=== PATIENT | male | born 1930 | race Caucasian/White ===

== ENCOUNTER 2017-10-21 15:18 | Inpatient (IN) | payer OTHER, MEDICARE ==
[~2017-10-21] VITALS: Ht 172.7 cm; Wt 120.2 kg
[~2017-10-21 15:18] MED LIST: ALBUTEROL 3 ML3 ML INH; ALBUTEROL0.09 MG/A1 INH; ASPIRIN EC81 M1 PO; CALCIUM 600600 M1 PO; CENTRUM SILVER1 TA1 PO; DULERA1 ARO INH; FIBER CHOICE1 CTB PO; K-DUR 20MEQ TA20 MEQ PO; LASIX40 MG PO; LOPRESSOR 25MG25 MG PO; LOPRESSOR50 MG PO; LOSARTAN POTAS100 MG PO; OMEPRAZOLE40 MG PO; SPIRIVA 18 MCG18 MCG INH; VIBRAMYCIN 100100 MG PO; VITAMIN D5000 I1 PO
--- NOTE | 2017-10-21 15:50 | ED DYSPNEA/ASTHMA COMPLAINT ---
History of Present Illness General Chief Complaint: Dyspnea (COPD, CHF, Other) Stated Complaint: SOB Source: patient, old records Exam Limitations: poor historian Triage Note: PT BIBA C/O SOB X4 DAYS EX SOB. 1 MONTH AGO PT WAS ON ANTIBIOTICS FOR BRONCHITIS. PER MEDIC RHONCHI THROUGHOUT AND WHEEZING. LLE POSSIBLE CELLULITIS. 125 SOLUMEDRAL IN THE FIELD, 2 GRAMS OF MAG HANGING ON ARRIVAL. 12 LEAD SHOWS AFIBB. PT HAS HX OF COPD, AFIBB CHF. Triage Nurses Notes Reviewed? yes HPI: 86 year old male with PMH significant for HTN, obesity, osteoporosis, severe aortic stenosis s/p AVR (2012), COPD, ELIZ noncompliant with CPAP, HFpEF and atrial fibrillation was BIBA for worsening dyspnea and cough. He was recently treated for bronchitis as an outpatient by Dr. Sarmiento. Dr. Prasad Garcia is his tool design engineer and manages his CHF. He was being seen in the wound care center at [place] for LLE wound and previous cellulitis, which is currently wrapped with an THANIA bandage. He was reportedly in his usual state of health until four days ago when he developed rapidly progressive exertional dyspnea to the point where he could not ambulate fifteen feet when he previously had been able to walk to the car with his walker. He also is complaining of a new productive cough but denies any fevers or chills. He denies any sick contacts. He denies any chest pain, palpitations, or worsening orthopnea. He has a history of COPD and is oxygen dependent at baseline 3L NC continuous. He was hypoxic with increased work of breathing and his called 911 at his request. The spectral scientist noted wheezing and dyspnea with atrial fibrillation with hypoxia and administered albuterol, magnesium and solumedrol in the field. (Kendy COLES,Lawrence) Vital Signs & Intake/Output Vital Signs & Intake/Output Vital Signs Date Time Temp Pulse Resp B/P B/P Pulse O2 O2 Flow FiO2 Mean Ox Delivery Rate 10/21 1728 98.0 118 24 144/83 99 8L 10/21 1526 97.9 96 22 163/77 99 Nasal 4.0L Cannula Allergies Coded Allergies: lisinopril (COUGHING 10/21/17) Reconcile Medications Albuterol Sulfate (Proair Hfa) 90 MCG HFA.AER.AD 2 PUF INH 4XDAILY COPD ( Reported) Aspirin (Ecotrin*) 81 MG TABLET.DR 1 TAB PO EOD HEART/BLOOD (Reported) Calcitriol 0.25 MCG CAPSULE 1 CAP PO DAILY SUPPLEMENT (Reported) Calcium (Elemental-Fr Calcarb) (Calcium) 600 MG CALCIUM (1,500 MG) TABLET 2 TAB PO QPM SUPPLEMENT (Reported) Cholecalciferol (Vitamin D3) (Vitamin D3) 50,000 UNIT CAPSULE 1 CAP PO QWED SUPPLEMENT (Reported) Clotrimazole/Betamethasone Dip (Clotrimazole-Betamethasone Crm) 1 %-0.05 % CREAM..G. 1 FRANCA TOP AD SKIN FOLDS (Reported) apply to affected area(s) Denosumab (Prolia) 60 MG/ML SYRINGE 60 MG INJ Q6M OSTEOPOROSIS (Reported) Furosemide 40 MG TABLET 2 TAB PO QAM DIURETIC (Reported) Losartan Potassium 50 MG TABLET 1 TAB PO DAILY BP (Reported) Metoprolol Tartrate 25 MG TABLET 0.5 TAB PO BID HEART/BP (Reported) Mometasone/Formoterol (Dulera 200 Mcg/5 Mcg Inhaler) 200 MCG-5 MCG/ACTUATION HFA.AER.AD 2 PUF INH BID COPD (Reported) Multivit-Min/FA/Lycopen/Lutein (Centrum Silver Men Tablet) 300 MCG-600 MCG-300 MCG TABLET 1 TAB PO DAILY SUPPLEMENT (Reported) Omeprazole 40 MG CAPSULE.DR 1 CAP PO DAILY GI (Reported) Polycarbophil (Fiber) (Unknown Strength) TABLET (Unknown Dose) PO QPM GI ( Reported) Potassium Chloride 20 MEQ TAB.ER.PRT 1 TAB PO DAILY SUPPLEMENT (Reported) Tiotropium Dickinson (Spiriva) 18 MCG CAP.W.DEV 1 CAP INH DAILY COPD (Reported) (Emily COLES,Jamil Martinez) Past History Travel History Traveled to [place] past 21 day No Medical History Any Pertinent Medical History? see below for history Cardiovascular: AFIB, aortic stenosis, CHF, hypertension, htn Respiratory: COPD Surgical History Surgical History: LIPOMA REMOVAL Psychosocial History Who do you live with Spouse Services at Home None What is your primary language [place] Family History Hx Contributory? No (Kendy COLES,Lawrence) Review of Systems Review of Systems Constitutional: Denies: chills, diaphoresis, fever. Respiratory: Reports: cough, orthopnea, short of breath, sputum production, wheezing. Cardiovascular: Reports: edema, orthopena, peripheral edema. Denies: chest pain, palpitations. GI: Denies: abdominal pain, constipation, diarrhea, nausea, vomiting. Genitourinary: Reports: no symptoms. Musculoskeletal: Reports: no symptoms. Skin: Reports: see HPI. Neurological/Psychological: Reports: no symptoms. Hematologic/Endocrine: Reports: no symptoms. Immunologic/Allergic: Reports: no symptoms. All Other Systems: Reviewed and Negative (Lawrence Larry MD) Physical Exam Physical Exam General Appearance: well developed/nourished, no apparent distress, alert, awake , moderate distress, tachypnea and pursed lip breathing with accessory muscle use Head: atraumatic, normal appearance Eyes: Bilateral: normal appearance, PERRL, EOMI. Neck: normal inspection, supple Respiratory: chest non-tender, lungs clear, decreased breath sounds, accessory muscle use, no crackles or rhonchi on auscultation Cardiovascular: irregularly irregular Gastrointestinal: normal bowel sounds, soft, non-tender, obese Extremities: 2+ bilateral lower extremity pitting edema, LLE THANIA wrap, b/l healing ulcers Core Measures ACS in differential dx? No CVA/TIA Diagnosis No Sepsis Present: No Sepsis Focused Exam Completed? No (Lawrence Larry MD) Progress Differential Diagnosis: asthma, AMI, CHF, COPD, pulmonary embolism, pneumonia Diagnostic Imaging: Discussed w/RAD: Radiology Read. CXR Impression: no acute abnormality Initial ED EKG: AFIB Comments: SERVICE DATE: 10/21/17-1553 EXAM TYPE: RAD - XRY-PORTABLE CHEST XRAY EXAMINATION: XR PORTABLE CHEST CLINICAL INFORMATION: Shortness of breath. COMPARISON: 02/17/2017 TECHNIQUE: Portable frontal view of the chest was obtained. FINDINGS: Large body habitus. Again noted is a large cardiac silhouette and congested appearance of central pulmonary vessels without interstitial edema, focal consolidation or pleural effusion. The replaced aortic valve is poorly visualized. Sternotomy wires are intact. Atherosclerotic calcification of the aorta. No acute osseous findings. IMPRESSION: - Cardiomegaly and chronic pulmonary venous hypertension without edema. - No acute cardiopulmonary abnormality compared to 02/17/2017. (Lawrence Larry MD) Plan of Care: Orders Procedure Date/time Status ARTERIAL BLOOD GAS (GEN) 10/21 1818 Active Add-on Test (ER Only) 10/21 1818 Active TROPONIN LEVEL 10/21 1645 Active B-TYPE NATRIURETIC PEP (BNP) 10/21 1645 Active COMPREHENSIVE METABOLIC PANEL 10/21 1626 Active CBC WITHOUT DIFFERENTIAL 10/21 1626 Complete TRC EVALUATION (GEN) 10/21 1552 Active OXYGEN SETUP (GEN) 10/21 1552 Active EKG 10/21 1534 Active Current Medications Sig/Migue Start time Last Medication Dose Stop Time Status Admin Albuterol Sulfate 3 ML Q4H PRN 10/21 1600 AC (Proventil) Ipratropium Dickinson 2.5 ML Q6P PRN 10/21 1600 AC (Atrovent) Laboratory Tests 10/21/17 1645: Troponin I Cancelled 10/21/17 1645: Anion Gap 11, Estimated GFR > 60, BUN/Creatinine Ratio 41.1 H, Glucose 112 H, Calcium 9.1, Total Bilirubin 0.6, AST 25, ALT 38, Alkaline Phosphatase 66, Troponin I 0.04, Tad-J-Mvpboqdfgup Pept Pending, Total Protein 6.4, Albumin 3.4 L, Globulin 3.0, Albumin/Globulin Ratio 1.1, CBC w Diff NO MAN DIFF REQ, RBC 3.53 L, MCV 92.1, MCH 28.8, RDW 17.9 H, MPV 7.3 L, Gran % 88.5 H, Lymphocytes % 6.9 L, Monocytes % 4.1, Eosinophils % 0.5, Basophils % 0, Absolute Granulocytes 6.7 H, Absolute Lymphocytes 0.5 L, Absolute Monocytes 0.3, Absolute Eosinophils 0, Absolute Basophils 0, PUBS MCHC 31.3 L Comments: 10/21/2017 4:51:41 PM patient appears comfortable and is conversant. I have cleaned his Ventimask 40% from 45%. (Emily COLES,Jamil Martinez) Departure Departure Time of Disposition: 1733 Disposition: STILL A PATIENT Condition: Stable Clinical Impression Primary Impression: COPD exacerbation Referrals: Yoav COLES,Yaw Bojorquez (PCP/Family) Departure Forms: Customer Survey General Discharge Information Admission Note Spoke With: Melodie Alexander MD Documentation of Exam: Documentation of any treatments & extenuating circumstances including Concerns Regarding Discharge (functional status, medication knowledge or non-compliance, living conditions, etc.) that warrant an admission rather than observation: increased oxygen requirement, pulmonary consultation, intravenous steroids, continuous pulse oximetry monitoring, possible NIPPV for acute hypoxemic respiratory failure, ABG to evaluate for hypercarbia (Lawrence Larry MD) PA/RAG INSPECTOR Co-Sign Statement Statement: ED Attending supervision documentation- [x] I saw and evaluated the patient. I have also reviewed all the pertinent lab results and diagnostic results. I agree with the findings and the plan of care as documented in the PA's/RAG INSPECTOR's documentation. Patient presents for evaluation of worsening shortness of breath and peripheral edema. Physical examination reveals diminished breath sounds over the left chest and crackles in the bases posteriorly. Patient also has left greater than right lower extremity edema (he states that he has a chronic wound on his left leg and that his left leg is typically more swollen than the right). [] I have reviewed the ED Record and agree with the PA's/RAG INSPECTOR's documentation. [] Additions or exceptions (if any) to the PAs/RAG INSPECTOR's note and plan are summarized below: [] (Emily COLES,Jamil Martinez) Critical Care Note Critical Care Note Critical Care Time: non-applicable (Kendy COLES,Lawrence)
[2017-10-21] MEDS ORDERED: SPIRIVA18 MCG INH (16:29)
[2017-10-21] MEDS ORDERED: LOSARTAN POTASS50 M1 PO (16:29)
[2017-10-21] MEDS ORDERED: FUROSEMIDE40 M1 PO (16:29)
[2017-10-21] MEDS ORDERED: CALCITRIOL0.25 MC1 PO (16:30)
[2017-10-21] MEDS ORDERED: CLOTRIMAZOLE-BE15 GM TOP (16:30)
[2017-10-21] MEDS ORDERED: METOPROLOL TART25 M1 PO (16:32)
[2017-10-21] MEDS ORDERED: OMEPRAZOLE40 M1 PO (16:33)
[2017-10-21] MEDS ORDERED: POTASSIUM CHLO20 ME2 PO (16:33)
[2017-10-21] MEDS ORDERED: PROLIA60 MG/1 ML INJ (16:33)
[2017-10-21] MEDS ORDERED: PROAIR HFA8.5 GM INH (16:34)
[2017-10-21] MEDS ORDERED: VITAMIN D350000 UNIT PO (16:35)
[2017-10-21] MEDS ORDERED: CENTRUM SILVER1 EAC4 PO (16:35)
[2017-10-21] MEDS ORDERED: DULERA 200 MCG/13 GM INH (16:35)
[2017-10-21] MEDS ORDERED: FIBER625 MG PO (16:36)
[2017-10-21] MEDS ORDERED: CALCIUM600 M3 PO (16:36)
--- NOTE | 2017-10-21 16:44 | RADIOLOGY REPORT ---
EXAMINATION: XR PORTABLE CHEST CLINICAL INFORMATION: Shortness of breath. COMPARISON: 02/17/2017 TECHNIQUE: Portable frontal view of the chest was obtained. FINDINGS: Large body habitus. Again noted is a large cardiac silhouette and congested appearance of central pulmonary vessels without interstitial edema, focal consolidation or pleural effusion. The replaced aortic valve is poorly visualized. Sternotomy wires are intact. Atherosclerotic calcification of the aorta. No acute osseous findings. IMPRESSION: - Cardiomegaly and chronic pulmonary venous hypertension without edema. - No acute cardiopulmonary abnormality compared to 02/17/2017.
[2017-10-21 16:52] LABS: ABSOLUTE BASOPHIL COUNT 0 /CUMM (0.0-0.2); ABSOLUTE EOSINOPHIL COUNT 0 /CUMM (0.0-0.7); ABSOLUTE GRANULOCYTE CT 6.7 /CUMM (1.4-6.5); ABSOLUTE LYMPH COUNT 0.5 /CUMM (1.2-3.4); ABSOLUTE MONOCYTE COUNT 0.3 /CUMM (0.10-0.60); BASOPHIL % 0 % (0.0-2.0); EOSINOPHIL % 0.5 % (0-5); GRANULOCYTE % 88.5 % (42.2-75.2); HEMATOCRIT 32.5 % (42-52); MEAN CORPUSCULAR HGB 28.8 PG (27.0-31.0); MEAN CORPUSCULAR HGB CONC 31.3 G/DL (33.0-37.0); MEAN CORPUSCULAR VOLUME 92.1 FL (80.0-94.0); MEAN PLATELET VOLUME 7.3 FL (7.4-10.4); PLATELET COUNT 226 /CUMM (130-400); RBC DISTRIBUTION WIDTH 17.9 % (11.5-14.5); RED BLOOD CELL CT 3.53 /CUMM (4.70-6.10); WHITE BLOOD CELL COUNT 7.6 /CUMM (4.8-10.8)
--- NOTE | 2017-10-21 21:06 | History & Physical ---
Antonio COLES,[facility] 10/21/172105: General Information and HPI MD Statement: I have seen and personally examined HERLINDA LANCE and documented this H&P. The patient is a 86 year old M who presented with a patient stated chief complaint of [Shortness of breath]. Source of Information: patient Exam Limitations: no limitations History of Present Illness: Mr. Lance is a 76-year-old obese gentleman with past medical history significant for hypertension, osteoporosis, severe aortic stenosis status post AVR(2012), atrial fibrillation status post ablation(2012) not on anticoagulation, obstructive sleep apnea(noncompliant with CPAP), COPD on 3 L of oxygen at home and heart failure with preserved ejection fraction presents with shortness of breath and productive cough for the past 4 days. According to the patient he has had shortness of breath and productive cough that has been going on for a while but recently has no strength/ stamina and is his shortness of breath and cough has worsened for the past 4 days. States he gets short of breath even after walking 15 feet. He is bringing up thick yellow colored sputum. He increased his oxygen to 3.5. Denies any blood in his sputum, fever, chills, runny nose, sore throat, orthopnea, leg swelling, vomiting, diarrhea, recent hospitalization, recent travel or sick contacts. He was given a course of azithromycin by Dr. Sarmiento for 3-4 weeks ago, and was also started on prednisone with taper around without any improvement in his respiratory symptoms. He follows up with Dr. Sarmiento for COPD(last visit was 4 weeks ago). Last saw Dr. Bourgeois(his hospital nursing assistant ) around 2 weeks ago, when he was told everything is normal and suggested a follow-up echocardiogram in couple of weeks. Also follows up with wound care center at [place] for his chronic lower extremity wounds. Allergies/Medications Allergies: Coded Allergies: lisinopril (COUGHING 10/21/17) Home Med list Albuterol Sulfate (Proair Hfa) 90 MCG HFA.AER.AD 2 PUF INH 4XDAILY COPD ( Reported) Aspirin (Ecotrin*) 81 MG TABLET.DR 1 TAB PO EOD HEART/BLOOD (Reported) Calcitriol 0.25 MCG CAPSULE 1 CAP PO DAILY SUPPLEMENT (Reported) Calcium (Elemental-Fr Calcarb) (Calcium) 600 MG CALCIUM (1,500 MG) TABLET 2 TAB PO QPM SUPPLEMENT (Reported) Cholecalciferol (Vitamin D3) (Vitamin D3) 50,000 UNIT CAPSULE 1 CAP PO QWED SUPPLEMENT (Reported) Clotrimazole/Betamethasone Dip (Clotrimazole-Betamethasone Crm) 1 %-0.05 % CREAM..G. 1 FRANCA TOP AD SKIN FOLDS (Reported) apply to affected area(s) Denosumab (Prolia) 60 MG/ML SYRINGE 60 MG INJ Q6M OSTEOPOROSIS (Reported) Furosemide 40 MG TABLET 2 TAB PO QAM DIURETIC (Reported) Losartan Potassium 50 MG TABLET 1 TAB PO DAILY BP (Reported) Metoprolol Tartrate 25 MG TABLET 0.5 TAB PO BID HEART/BP (Reported) Mometasone/Formoterol (Dulera 200 Mcg/5 Mcg Inhaler) 200 MCG-5 MCG/ACTUATION HFA.AER.AD 2 PUF INH BID COPD (Reported) Multivit-Min/FA/Lycopen/Lutein (Centrum Silver Men Tablet) 300 MCG-600 MCG-300 MCG TABLET 1 TAB PO DAILY SUPPLEMENT (Reported) Omeprazole 40 MG CAPSULE.DR 1 CAP PO DAILY GI (Reported) Polycarbophil (Fiber) (Unknown Strength) TABLET (Unknown Dose) PO QPM GI ( Reported) Potassium Chloride 20 MEQ TAB.ER.PRT 1 TAB PO DAILY SUPPLEMENT (Reported) Tiotropium [place] (Spiriva) 18 MCG CAP.W.DEV 1 CAP INH DAILY COPD (Reported) Past History Travel History Traveled to [place] past 21 day No Medical History Cardiovascular: AFIB, aortic stenosis, hypertension, HFpEF Respiratory: COPD, obstructive sleep apnea Musculoskeletal: osteoporosis Isolation History: Standard Surgical History Surgical History: appendectomy, cholecystectomy, hernia repair-ventral, LIPOMA REMOVAL, polypectomy Past Family/Social History Psychosocial History Where do you live? Home Who Do You Live With? spouse Services at Home: None Smoking Status: Former Smoker ETOH Use: occasional use Illicit Drug Use: denies illicit drug use Functional Ability Ambulation: walker Review of Systems Review of Systems Constitutional: Reports: malaise, weakness. Denies: chills, fever. EENTM: Reports: no symptoms. Cardiovascular: Reports: no symptoms. Respiratory: Reports: cough, short of breath, sputum production. GI: Reports: no symptoms. Genitourinary: Reports: no symptoms. Musculoskeletal: Reports: no symptoms. Skin: Reports: no symptoms. Neurological/Psychological: Reports: no symptoms. Hematologic/Endocrine: Reports: no symptoms. Immunologic/Allergic: Reports: no symptoms. All Other Systems: Reviewed and Negative Exam & Diagnostic Data Last 24 Hrs of Vital Signs/I&O Vital Signs Date Time Temp Pulse Resp B/P B/P Pulse O2 O2 Flow FiO2 Mean Ox Delivery Rate 10/21 2125 Nasal 6.0L Cannula 10/21 2124 98.1 111 18 120/72 98 Nasal 6.0L Cannula 10/21 2047 98.3 116 30 136/62 99 Nasal 6.0L Cannula 10/21 1937 98.9 124 28 141/73 99 100% 10/21 191 98 Venti Mask 45% 10/21 1727 98.0 118 24 144/83 99 8L 10/21 1526 97.9 96 22 163/77 99 Nasal 4.0L Cannula Intake & Output 10/21 1600 10/21 0800 10/21 0000 Intake Total Output Total Balance Patient 265 lb Weight Weight Reported by Patient Measurement Method Physical Exam General Appearance Alert, Oriented X3, Cooperative, No Acute Distress Skin No Rashes, No Breakdown HEENT Atraumatic, PERRLA, EOMI, Mucous Membr. moist/pink Neck Supple, No thryomegaly, +ve JVD Cardiovascular Normal S1, Normal S2, Irregular, Systolic murmur Lungs decreased breath sounds in bilateral lung combs, rhonchi Abdomen Normal Bowel Sounds, Soft, No Tenderness Extremities No Clubbing, No Cyanosis, left leg wrapped in THANIA bandage,Chronic venous statsis changes, +2 pitting edema Last 24 Hrs of Labs/Ash: Laboratory Tests 10/21/171724: pH 7.38, pCO2 54 H, pO2 83, HCO3 31 H, ABG O2 Sat (Measured) 94.0 L, P-50 ( Temp Corrected) N, Carboxyhemoglobin 1.4 L, O2 Concentration % 40%, Temperature 98.0, O2 Delivery Method V/M, Phlebotomy Draw Site RIGHT RADIAL 10/21/17 1645: Troponin I Cancelled 10/21/17 164: Anion Gap 11, Estimated GFR > 60, BUN/Creatinine Ratio 41.1 H, Glucose 112 H, Calcium 9.1, Total Bilirubin 0.6, AST 25, ALT 38, Alkaline Phosphatase 66, Troponin I 0.04, Emi-X-Vdsaxwvfjib Pept 9460 H, Total Protein 6.4, Albumin 3.4 L, Globulin 3.0, Albumin/Globulin Ratio 1.1, CBC w Diff NO MAN DIFF REQ, RBC 3.53 L, MCV 92.1, MCH 28.8, RDW 17.9 H, MPV 7.3 L, Gran % 88.5 H, Lymphocytes % 6.9 L, Monocytes % 4.1, Eosinophils % 0.5, Basophils % 0, Absolute Granulocytes 6.7 H, Absolute Lymphocytes 0.5 L, Absolute Monocytes 0.3, Absolute Eosinophils 0, Absolute Basophils 0, PUBS MCHC 31.3 L Diagnostic Data EKG Results Atrial fibrillation Heart rate 93 CXR Results IMPRESSION: - Cardiomegaly, congested appearance of central pulmonary vessels without interstitial edema, focal consolidation or pleural effusion. (Chronic pulmonary venous hypertension without edema). - No acute cardiopulmonary abnormality compared to 02/17/2017. Assessment/Plan Assessment: Mr. Lance is a 76-year-old obese gentleman with past medical history significant for hypertension, osteoporosis, severe aortic stenosis status post AVR(2012), atrial fibrillation status post ablation(2012), obstructive sleep apnea( noncompliant with CPAP), COPD on 3 L of oxygen at home and heart failure with preserved ejection fraction presents with shortness of breath and productive cough for the past 4 days. A/P; 1. Acute hypoxemic hypercarbic respiratory failure likely 2/2 COPD exacerbation and heart failure; Patient has worsening productive cough, shortness of breath and hypoxia with increase in her oxygen requirement, and PCO2 level of 54 on ABGs. Patient also has a history of severe aortic stenosis status post valve replacement in 2012, echocardiogram at that time showed ejection fraction of 55% . Patient currently has JVD on examination and a ProBNP Level of 9460. Chest x -ray shows cardiomegaly with venous congestion and chronic pulmonary hypertension. - We will admit the patient to telemetry floor - Patient already received 1 dose of IV Solu-Medrol 125 mg in the ER, will start on IV Solu-Medrol 40 mg every 12. - IV azithromycin - Continue Supplemental oxygen - TRC nebs - Follow-up sputum culture - Pulm consult in a.m. - Start the patient on IV Lasix 40mg BID. -Troponin and EKG 2 to rule out ACS - Echocardiogram - Cardiology consult. - Continue home medications. 2. Atrial fibrillation (status post ablation); Per the patient he is not on any anticoagulation as he was reverted back to sinus rhythm after ablation and he did not require any anticoagulation. Patient currently has a JACOBO VASC score of 4. - Continue metoprolol. - Cardiology consult. 3. Hypernatremia; - Current sodium level is 147. - Will repeat labs in a.m.. 4. Chronic anemia; - H&H 10.2/32.5, RDW 17.9 - Will do iron studies, folate and B12 5. Hypertension, osteoporosis, obstructive sleep apnea; - Continue home medications and CPAP. 6. Chronic left lower extremity wounds; - Wound consult DVT prophylaxis; subcutaneous Lovenox Patient is full code As Ranked By This Provider Problem List: 1. COPD exacerbation 2. Atrial fibrillation Core Measures/Misc (06/20) Acute Coronary Syndrome ACS Diagnosis: No Congestive Heart Failure Congestive Heart Failure Diagnosis No Cerebrovascular Accident CVA/TIA Diagnosis: No VTE (View Protocol) VTE Risk Factors Age>40 No Mechanical VTE Prophylaxis d/t Physical Contraindication No VTE Pharm Prophylaxis d/t NA PharmProphylax ordered Sepsis (View protocol) Sepsis Present: No Gabi Schneider MD 10/21/17 2140: Resident Review Statement Resident Statement: examined this patient, discussed with music industry intern, agreed with music industry intern Other Findings: This is a 86 yo male with PMH of COPD on 3L O2, HFpEF, HTN, morbid obesity, severe s/p AVR in 2012, Afib, who come in for CC of SOB. Per pt he has been feeling SOB for the last 4 days and it has been getting progressively worse. He is unable to ambulate 15ft from bed to bathroom without significant distress and SOB. He states that he has noted a progressively worsening cough now with copious productive sputum as well. He increased his O2 to 3.5L but found no relief. He denies any fever, chills, night sweats, chest pain, palpitations, nausea, vomiting or diarrhea. Pt sleeps on a lounger as he cannot lay flat. He denies increase in elevation or pillows. Denies sick contacts, recent URI or recent ravel. He endorses, SOB with SAWANT, cough with productive sputum and weakness/fatigue. Of note pt sees Dr. Sarmiento for pulm and had a last visit about 4-6 wks ago. He was given an oral prednisone taper and azithromycin. He denies any improvement in his respiratory symptoms afterwards. EMS noted rhonchi and wheezing throughout and was given 125 solumedrol and 2g Mag and initially placed on 45% venti mask w/ sat 98%. When he stood for urinal he desatted to 68% with subsequent recovery of sats but tachypnea of 33. VITALS: 97.9, 96-124, 20 11/05/2027, 163/77, 99% on 6 L O2 PHYSICAL EXAM: HEENT: Pupils equal and reactive. EOMI. Has keratotic lesions on scalp Cardiovascular: irregularly irregular. tachycardic. 2/6 Murmur Skin: LLE in bandage. Bandage clean to inspection Respiratory: He lungs sound incredible diminished. no wheezing appreciated. but + rhonchi. GI: BSX4, No tenderness on palpation. EXT: 2+ edema in bilat LE. See skin. Assessment: This is an 86-year-old male with past medical history significant for COPD on 3 L baseline, heart failure with preserved ejection fraction, hypertension, obesity, severe a.m. status post AVR in 2013, who comes in for chief complaint of shortness of breath, worsening cough and weakness. In ED he is found to have acute hypoxic and hypercarbic respiratory failure due to multifactorial etiology including COPD, CHF and atrial fibrillation with rapid rate. PLAN: 1. Acute hypoxic and hypercarbic respiratory failure. Patient has PCO2 of 54. Unsure of his baseline as this is the only value we have on record. He has baseline COPD on 3 L and a 2013 echo suggests heart failure with preserved ejection fraction. He also has history of severe AR but is status post AVR in 2013. His BMP is 9460, last BMP in 2013 at 1580. Chest x-ray does show congested vessels and evidence of chronic pulmonary hypertension. Given that he is afebrile with no white count do not suspect an infectious etiology. * TRC * Goal sat is around 92% in this patient * Pulse ox * Azithromycin * He got 125 Solu-Medrol in ED. Started IV 40 q8 tomorrow. Then taper as required. * IV lasix 40mg x1 administered in ED. Holding home lasix dose. Have ordered IV lasix for am. Reassess. * Appreciate cardio consult-Dr. Rendon group * Appreciate pulm consult-Dr. Sarmiento 2. Afib: Pt noted to be in Afib with rate 96-124. Pt is not on any AC. [id number] at 4. Pt denies any acute bleeding event. States he was ablated in 2013. He is not sure if he is chronically in afib. * Cardiology consult * Continue home metoprolol * First trop negative * Echo * Con't home ASA 3. Hypernatremia: Na 147. He was given lasix iv 40 in ED. * Hold home lasix. Giving IV lasix. Con't monitor. 4. Anemia: Hb 10.2. No baseline in a while. * monitor cbc * guiac * iron studies 5. CAD * ASA81 6. HTN: * Con't Losartan 7. LE wounds: His LLE is wrapped in bandage for chronic non-healing wounds. Sees wound care center. * Appreciate wound care consult [facility] diet with NA restriction Chem ppx Benjamin COLES, [facility] 10/22/17 0113: Attending MD Review Statement Attending Statement Attending MD Statement: examined this patient, discuss w/resident/PA/YARD ENGINEER, agreed w/resident/PA/YARD ENGINEER, reviewed images, amended to note Attending Assessment/Plan: 86 yo M with chronic hypoxic respiratory failure, COPD on 3L, ELIZ not using CPAP , HfpEF, HTN, s/p bovine AVR (2013), Afib s/p ablation and ?cardioversion (2013) not on AC, pulmonary hypertension, recently finished a course of prednisone taper is here for 4 day h/o worsening exertional dyspnea and cough productive of yellow phlegm. He gets dyspneic with minimal exertion. He has been using his inhalers and also increased his O2 to 3.5 L without much relief. called 911 , EMS noted patient to be wheezing, hypoxic to 80's and with increased work of breathing. Albuterol, solumedrol and magnesium was given enroute. He reports his lower extremities have been more swollen over the past 1 week, and he attributes it to his recent prednisone use. Patient denies fever or chills, no sick contacts. He received his flu vaccine. No previous h/o intubations. Vitals: afebrile, HR 90-110's, BP 120/72, sats 99% on 4L --> 98% on 45% VM --> 98% on 6L. He desatted to 60's while standing up to urinate. Exam: AAO, in mild respiratory distress, able to speak in short sentences, minimal use of accessory muscles, PERRL, MMM, Neck: JVD+, Chest basilar crackles L>R, reduced air entry with diffuse wheeze+, Heart S1S2 irregularly irregular, systolic murmur+, Abd soft, NT, LE: bilateral chronic venous stasis changes+, b/ l 2+ edema+. Dressings removed and legs were examined he has chronic healing superficial wounds/ ulcers more notably on the left leg and left foot. Peripheral pulses were feeble. Labs: no leukocytosis, Na 147, bicarb 39, BUN 37, creat 0.9, trop neg, proBNP 9460. AB.38/54/83/31. CXR: cardiomegaly, chronic pulmonary venous hypertension, no interstitial edema. Echo (2012): EF 55%. EKG: Afib @ 100, Qtc 465, ~ < [address] depression in V4-6. Assessment and plan: 1. Acute on chronic hypoxic and hypercarbic respiratory failure multifactorial 2. COPD exacerbation 3. Acute on chronic diastolic heart failure 4. Chronic pulmonary hypertension 5. Atrial fibrillation not on anticoagulation ?reason 6. Status post bovine AVR - Admit to Telemetry - Daily weights, strict I/O's - IV lasix 40 mg with effective diuresis of 750 cc - Continue IV lasix 40 BID (home dose is 80 mg PO daily) - Repeat EKG and troponin - Obtain echo (patient was scheduled for echo in 2 weeks) to assess EF, valvular function - Cardio consult (Dr. Rendon) - [facility] nebs, sputum culture - IV steroids 40 mg Q8, azithro for 5 days - Pulm consult (Dr. Sarmiento) - I discussed need for Bipap use, but patient denied and stated he does not use it at home. I reiterated that if need arises then I will have to place him on it , and he agreed. - Resume metoprolol for rate control - It is unclear as to why patient is not anticoagulated, given his high [id number]- VASc score. Please discuss with cardiology in AM. - Replete electrolytes to keep Mag > 2.0 and K > 4.0. - Wound consult for his lower extremity wounds. DVT ppx Lovenox. Full code.
[2017-10-21 21:25] VITALS: BP 120/72
--- NOTE | 2017-10-21 21:58 | Admission Certification ---
Admission Certification Certification Statement - As attending physician, I certify that at the time of - admission, based on clinical presentation, severity of - symptoms, need for further diagnostic testing and - therapeutic interventions, and risk of adverse outcomes - without in-hospital treatment, in my clinical assessment, - this patient requires an acute hospital stay for a minimum - of two nights or longer. I have also considered psychsocial - factors such as support system, advanced age, financial - issues, cognitive issues, and failed out-patient treatments, - past re-admission history, safety of patient, and lack of - compliance as applicable. Specific rationale supporting this admission is: Acute on chronic hypoxic and hypercarbic respiratory failure, mild CHF exacerbation with COPD exacerbation.
[2017-10-22 06:38] VITALS: BP 132/62
[2017-10-22 08:18] LABS: ABSOLUTE BASOPHIL COUNT 0 /CUMM (0.0-0.2); ABSOLUTE EOSINOPHIL COUNT 0 /CUMM (0.0-0.7); ABSOLUTE GRANULOCYTE CT 5.1 /CUMM (1.4-6.5); ABSOLUTE LYMPH COUNT 0.5 /CUMM (1.2-3.4); ABSOLUTE MONOCYTE COUNT 0.2 /CUMM (0.10-0.60); BASOPHIL % 0 % (0.0-2.0); EOSINOPHIL % 0 % (0-5); HEMATOCRIT 30.9 % (42-52); MEAN CORPUSCULAR HGB 29.5 PG (27.0-31.0); MEAN CORPUSCULAR HGB CONC 31.9 G/DL (33.0-37.0); MEAN CORPUSCULAR VOLUME 92.2 FL (80.0-94.0); MEAN PLATELET VOLUME 7.6 FL (7.4-10.4); PLATELET COUNT 229 /CUMM (130-400); RED BLOOD CELL CT 3.35 /CUMM (4.70-6.10); WHITE BLOOD CELL COUNT 5.8 /CUMM (4.8-10.8)
--- NOTE | 2017-10-22 08:37 | History & Physical ---
General Information and HPI Source of Information: patient Exam Limitations: no limitations Allergies/Medications Allergies: Coded Allergies: lisinopril (COUGHING 10/21/17) Home Med list Albuterol Sulfate (Proair Hfa) 90 MCG HFA.AER.AD 2 PUF INH 4XDAILY COPD ( Reported) Aspirin (Ecotrin*) 81 MG TABLET.DR 1 TAB PO EOD HEART/BLOOD (Reported) Calcitriol 0.25 MCG CAPSULE 1 CAP PO DAILY SUPPLEMENT (Reported) Calcium (Elemental-Fr Calcarb) (Calcium) 600 MG CALCIUM (1,500 MG) TABLET 2 TAB PO QPM SUPPLEMENT (Reported) Cholecalciferol (Vitamin D3) (Vitamin D3) 50,000 UNIT CAPSULE 1 CAP PO QWED SUPPLEMENT (Reported) Clotrimazole/Betamethasone Dip (Clotrimazole-Betamethasone Crm) 1 %-0.05 % CREAM..G. 1 FRANCA TOP AD SKIN FOLDS (Reported) apply to affected area(s) Denosumab (Prolia) 60 MG/ML SYRINGE 60 MG INJ Q6M OSTEOPOROSIS (Reported) Furosemide 40 MG TABLET 2 TAB PO QAM DIURETIC (Reported) Losartan Potassium 50 MG TABLET 1 TAB PO DAILY BP (Reported) Metoprolol Tartrate 25 MG TABLET 0.5 TAB PO BID HEART/BP (Reported) Mometasone/Formoterol (Dulera 200 Mcg/5 Mcg Inhaler) 200 MCG-5 MCG/ACTUATION HFA.AER.AD 2 PUF INH BID COPD (Reported) Multivit-Min/FA/Lycopen/Lutein (Centrum Silver Men Tablet) 300 MCG-600 MCG-300 MCG TABLET 1 TAB PO DAILY SUPPLEMENT (Reported) Omeprazole 40 MG CAPSULE. 1 CAP PO DAILY GI (Reported) Polycarbophil (Fiber) (Unknown Strength) TABLET (Unknown Dose) PO QPM GI ( Reported) Potassium Chloride 20 MEQ TAB.ER.PRT 1 TAB PO DAILY SUPPLEMENT (Reported) Tiotropium [place] (Spiriva) 18 MCG CAP.W.DEV 1 CAP INH DAILY COPD (Reported) Past History Travel History Traveled to [place] past 21 day No Medical History Blood Transfusion Hx: Yes Neurological: NONE EENT: NONE Cardiovascular: AFIB, aortic stenosis, hypertension, HFpEF Respiratory: COPD, obstructive sleep apnea Gastrointestinal: POLYP REMOVAL HERNIA REPAIR Hepatic: NONE Renal: NONE Musculoskeletal: osteoporosis Psychiatric: NONE Endocrine: NONE Blood Disorders: NONE Cancer(s): NONE DESK MAKER/Reproductive: NONE History of MRSA: No History of VRE: No History of CDIFF: No Isolation History: Standard Influenza Vaccine: 08/04/17 Surgical History Surgical History: appendectomy, cholecystectomy, hernia repair-ventral, LIPOMA REMOVAL polypectomy Past Family/Social History Psychosocial History Where do you live? Home Who Do You Live With? spouse Services at Home: None Smoking Status: Former Smoker ETOH Use: occasional use Illicit Drug Use: denies illicit drug use Functional Ability Ambulation: walker Exam & Diagnostic Data Diagnostic Data EKG Results Atrial fibrillation Heart rate 93 CXR Results IMPRESSION: - Cardiomegaly, congested appearance of central pulmonary vessels without interstitial edema, focal consolidation or pleural effusion. (Chronic pulmonary venous hypertension without edema). - No acute cardiopulmonary abnormality compared to 02/17/2017. Core Measures/Misc (06/20) Cerebrovascular Accident CVA/TIA Diagnosis: No VTE (View Protocol) VTE Risk Factors Age>40 Sepsis (View protocol) Sepsis Present: No
--- NOTE | 2017-10-22 08:40 | PN- Housestaff ---
Gerson Corbett MD,Ami 10/22/17 0840: Subjective Follow-up For: Acute hypoxemic hypercarbic respiratory failure likely 2/2 COPD exacerbation and heart failure Atrial fibrillation (status post ablation) Tele-Events Since Last Visit: afib 83-96 Subjective: Patient visited today, old, obese salvador galloway, was lying in bed comfortably in no acute distress, was alert and oriented. He reported relatively improved cough and sputum, and shortness of breathing, No fever or chills, no chest pain, no other events. he could not lay flat due to spine problems, no palpitations or heart racing. He noted he is supposed to have echo with Dr. Woodward in a week, last visit was a few weeks ago and he was not aware of any heart rate problems. Consult with Dr Quintanilla and Dr Guillermina renee. Review of Systems Constitutional: Reports: see HPI. Cardiovascular: Denies: chest pain, edema, palpitations. Respiratory: Reports: cough, short of breath, sputum production. Gastrointestinal: Reports: no symptoms. Skin: Reports: see HPI, lesions. Objective Last 24 Hrs of Vital Signs/I&O Vital Signs Date Time Temp Pulse Resp B/P B/P Pulse O2 O2 Flow FiO2 Mean Ox Delivery Rate 10/22 0638 97.5 82 18 132/62 95 Nasal Cannula 10/22 0000 98 Nasal 5.0L Cannula 10/21 2125 Nasal 6.0L Cannula 10/21 2124 98.1 111 18 120/72 98 Nasal 6.0L Cannula 10/21 2047 98.3 116 30 136/62 99 Nasal 6.0L Cannula 10/21 1938 98.9 124 28 141/73 99 100% 10/21 1911 98 Venti Mask 45% 10/21 1728 98.0 118 24 144/83 99 8L 10/21 1526 97.9 96 22 163/77 99 Nasal 4.0L Cannula Intake & Output 10/22 1600 10/22 0800 10/22 0000 Intake Total 250 Output Total 350 750 Balance -100 -750 Intake, Oral 250 Output, Urine 350 750 Patient 265 lb Weight Weight Reported by Patient Measurement Method Physical Exam General Appearance: Alert, Oriented X3, Cooperative, No Acute Distress Skin: No Significant Lesion, Skin lesion over legs, wrapped Skin Temp/Moisture Exam: Warm/Dry Sepsis Skin Exam (color): Normal for Ethnicity HEENT: Atraumatic, EOMI, Mucous Membr. moist/pink Cardiovascular: Normal S1, Normal S2, irreg irreg Lungs: bilateral corase crackles and wheezing Abdomen: Soft, No Tenderness Extremities: bilateral edema, chronic wounds, wrappped Current Medications: Current Medications Sig/Migue Start time Last Medication Dose Route Stop Time Status Admin Acetaminophen 650 MG Q6P PRN 10/21 2115 AC 10/22 PO 0552 Albuterol Sulfate 3 ML Q4H PRN 10/21 1600 AC INH Aspirin Buffered 81 MG Q48 10/21 2300 AC 10/22 PO 0021 Azithromycin 500 MG DAILY 10/21 2200 AC 10/22 Dextrose/Water 250 ML IV 0034 Enoxaparin Sodium 40 MG DAILY 10/22 1000 AC SC Furosemide 0 .STK-MED ONE 10/21 1909 DC IV Furosemide 40 MG ONCE ONE 10/21 1845 DC 10/21 IV 10/21 1846 1935 Ibuprofen 600 MG Q6P PRN 10/21 2115 AC PO Ipratropium [place] 2.5 ML Q6P PRN 10/21 1600 AC INH Losartan Potassium 50 MG DAILY 10/22 1000 AC PO Methylprednisolone 40 MG Q8 10/22 0600 AC 10/22 IV 0549 Metoprolol Tartrate 12.5 MG BID 10/21 2300 AC 10/22 PO 0026 Multivitamins 1 TAB DAILY 10/22 1000 AC PO Nystatin 1 FRANCA TID 10/21 2200 AC 10/22 TOP 0027 Omeprazole 40 MG DAILY AC 10/22 0700 AC 10/22 PO 0549 Oxycodone/ 2 TAB Q6P PRN 10/21 2115 AC Acetaminophen PO Polycarbophil 625 MG DAILY 10/22 1000 AC PO Last 24 Hrs of Lab/Ash Results Last 24 Hrs of Labs/Mics: Laboratory Tests 10/22/17 0621: Anion Gap 10, Estimated GFR > 60, BUN/Creatinine Ratio 30.9 H, CBC w Diff Pending, WBC Pending, RBC Pending, Hgb Pending, Hct Pending, MCV Pending, MCH Pending, RDW Pending, Plt Count Pending, MPV Pending, Gran % Pending, Lymphocytes % Pending, Monocytes % Pending, Eosinophils % Pending, Basophils % Pending, Absolute Granulocytes Pending, Absolute Lymphocytes Pending, Absolute Monocytes Pending, Absolute Eosinophils Pending, Absolute Basophils Pending, PUBS MCHC Pending 10/22/17 0045: Troponin I 0.04 10/21/17 1725: pH 7.38, pCO2 54 H, pO2 83, HCO3 31 H, ABG O2 Sat (Measured) 94.0 L, P-50 ( Temp Corrected) N, Carboxyhemoglobin 1.4 L, O2 Concentration % 40%, Temperature 98.0, O2 Delivery Method V/M, Phlebotomy Draw Site RIGHT RADIAL 10/21/17 1645: Troponin I Cancelled 10/21/17 1645: Anion Gap 11, Estimated GFR > 60, BUN/Creatinine Ratio 41.1 H, Glucose 112 H, Calcium 9.1, Magnesium 2.2, Total Bilirubin 0.6, AST 25, ALT 38, Alkaline Phosphatase 66, Troponin I 0.04, Ybg-N-[id number] Pept 9460 H, Total Protein 6.4, Albumin 3.4 L, Globulin 3.0, Albumin/Globulin Ratio 1.1, CBC w Diff NO MAN DIFF REQ, RBC 3.53 L, MCV 92.1, MCH 28.8, RDW 17.9 H, MPV 7.3 L, Gran % 88.5 H, Lymphocytes % 6.9 L, Monocytes % 4.1, Eosinophils % 0.5, Basophils % 0, Absolute Granulocytes 6.7 H, Absolute Lymphocytes 0.5 L, Absolute Monocytes 0.3, Absolute Eosinophils 0, Absolute Basophils 0, PUBS MCHC 31.3 L Microbiology 10/22 510 LOWER RESP: Respiratory Culture - COLB 10/22 510 LOWER RESP: Gram Stain - COLB Assessment/Plan Assessment: Mr. Moyer is a 76-year-old obese gentleman presented with shortness of breath and productive cough for the past 4 days. PMH: HTN, osteoporosis, severe s/p AVR (2012), AF s/p ablation(2012), ELIZ ( noncompliant with CPAP), COPD on 3 L of oxygen at home and HFpEF, recent finished prednisone taper A/P; 1. Acute hypoxemic hypercarbic respiratory failure Secondary to COPD exacerbation and heart failure; Patient has worsening productive cough, shortness of breath and hypoxia with increase in her oxygen requirement, and PCO2 level of 54 on ABGs. Patient also has a history of severe aortic stenosis status post valve replacement in 2012, echocardiogram at that time showed ejection fraction of 55%. Patient currently has JVD on examination and a ProBNP Level of 9460. Chest x-ray shows cardiomegaly with venous congestion and chronic pulmonary hypertension. ACS was ruled out by serial EKG and TN. - Continue telemetry - Continue IV Solu-Medrol 40 mg every 12. - IV azithromycin - Continue Supplemental oxygen - TRC nebs - Cotinue IV Lasix 40mg BID. - Follow Echocardiogram - Cardiology consult - Follow-up sputum culture - Follow Pulm - Continue home medications. 2. Atrial fibrillation (status post ablation); Per the patient he is not on any anticoagulation as he was reverted back to sinus rhythm after ablation and he did not require any anticoagulation. Patient currently has a JACOBO VASC score of 4. current afib is most likely in setting of COPD exacerbation but we will start AC. - Continue metoprolol - Eliquise 5mg BID for anticoag - follow Cardiology 3. Hypernatremia; - Current sodium level is 146. - Will repeat labs in a.m. 4. Chronic anemia; - H&H 10.2/32.5, RDW 17.9 - Follow iron studies, folate and B12 5. Hypertension, osteoporosis, obstructive sleep apnea; - Continue home medications and CPAP. 6. Chronic left lower extremity wounds; - Wound consult DVT prophylaxis; subcutaneous Lovenox Patient is full code heart healthy diet Problem List: 1. Atrial fibrillation 2. COPD exacerbation 3. Acute and chronic respiratory failure with hypoxia 4. CHF EXACERBATION Pain Ratin Pain Location: None Pain Goal: Pain 4 or less Pain Plan: Continue current plan Tomorrow's Labs & Rationales: CBC BEP Tru Zhang 10/22/17 1622: Attending MD Review Statement Attending Statement Attending MD Statement: examined this patient, discuss w/resident/PA/DIRECTOR OF REIMBURSEMENT, agreed w/resident/PA/DIRECTOR OF REIMBURSEMENT, reviewed EMR data (avail), discussed with nursing, discussed with case mgmt Attending Assessment/Plan: Acute COPD exacerabtion- cont on solumedrol 40mg iv q8h. pulm consult appreciated. zithromax for now. Acute on chronic chf exacerbation- await echo results. cardiology consult appreciated. cont on lasix 40mg iv bid for now. Paraoxysmal Afib - started on eliquis. cont on rate control meds as per cardiology recommendations. Hypernatremia- monitor closely given the lasix .
[2017-10-22 09:20] LABS: GRANULOCYTE % 88.5 % (42.2-75.2)
--- NOTE | 2017-10-22 10:43 | Cons- Cardiology ---
General Information and HPI Consulting Request Date of Consult: 10/22/17 Requested By: Vicente COLES,Tru Pedroza Reason for Consult: Dyspnea, post aortic valve replacement Source of Information: patient, old records Exam Limitations: no limitations History of Present Illness: The patient is an 86-year-old gentleman with past medical history significant for hypertension, osteoporosis, severe aortic stenosis status post AVR(2012), atrial fibrillation status post ablation(2012) not on anticoagulation, obstructive sleep apnea (noncompliant with CPAP), COPD on 3 L of oxygen at home and heart failure with preserved ejection fraction. He presents with shortness of breath and productive cough for the past 4 days. The patient states dyspnea has been progressive over the past several weeks; however, has lately increased over the past 4 days. He describes being unable to ambulate significantly at home secondary to dyspnea and severe fatigue. There has been a concurrent cough, productive of a thick yellowish sputum; however, he otherwise denies fevers or chills. A course of outpatient azithromycin was initiated several weeks ago his symptoms; however, without significant improvement. From a cardiac standpoint, the patient otherwise denies symptoms of chest pains nor palpitations while at rest or with physical activity. He is however significantly limited in physical activity due to his underlying dyspnea. On arrival, an initial chest x-ray demonstrated no evidence of congestive heart failure. A BNP was elevated at 9400. The patient was noted to be in atrial fibrillation with rapid ventricular response however, remains asymptomatic for palpitations. Allergies/Medications Allergies: Coded Allergies: lisinopril (COUGHING 10/21/17) Home Med List: Albuterol Sulfate (Proair Hfa) 90 MCG HFA.AER.AD 2 PUF INH 4XDAILY COPD ( Reported) Aspirin (Ecotrin*) 81 MG TABLET.DR 1 TAB PO EOD HEART/BLOOD (Reported) Calcitriol 0.25 MCG CAPSULE 1 CAP PO DAILY SUPPLEMENT (Reported) Calcium (Elemental-Fr Calcarb) (Calcium) 600 MG CALCIUM (1,500 MG) TABLET 2 TAB PO QPM SUPPLEMENT (Reported) Cholecalciferol (Vitamin D3) (Vitamin D3) 50,000 UNIT CAPSULE 1 CAP PO QWED SUPPLEMENT (Reported) Clotrimazole/Betamethasone Dip (Clotrimazole-Betamethasone Crm) 1 %-0.05 % CREAM..G. 1 FRANCA TOP AD SKIN FOLDS (Reported) apply to affected area(s) Denosumab (Prolia) 60 MG/ML SYRINGE 60 MG INJ Q6M OSTEOPOROSIS (Reported) Furosemide 40 MG TABLET 2 TAB PO QAM DIURETIC (Reported) Losartan Potassium 50 MG TABLET 1 TAB PO DAILY BP (Reported) Metoprolol Tartrate 25 MG TABLET 0.5 TAB PO BID HEART/BP (Reported) Mometasone/Formoterol (Dulera 200 Mcg/5 Mcg Inhaler) 200 MCG-5 MCG/ACTUATION HFA.AER.AD 2 PUF INH BID COPD (Reported) Multivit-Min/FA/Lycopen/Lutein (Centrum Silver Men Tablet) 300 MCG-600 MCG-300 MCG TABLET 1 TAB PO DAILY SUPPLEMENT (Reported) Omeprazole 40 MG CAPSULE.DR 1 CAP PO DAILY GI (Reported) Polycarbophil (Fiber) (Unknown Strength) TABLET (Unknown Dose) PO QPM GI ( Reported) Potassium Chloride 20 MEQ TAB.ER.PRT 1 TAB PO DAILY SUPPLEMENT (Reported) Tiotropium [place] (Spiriva) 18 MCG CAP.W.DEV 1 CAP INH DAILY COPD (Reported) Current Medications: Current Medications Sig/Migue Start time Last Medication Dose Route Stop Time Status Admin Acetaminophen 650 MG Q6P PRN 10/21 2115 AC 10/22 PO 0552 Albuterol Sulfate 3 ML Q4H PRN 10/21 1600 AC INH Aspirin Buffered 81 MG Q48 10/21 2300 AC 10/22 PO 0021 Azithromycin 500 MG DAILY 10/210 AC 10/22 Dextrose/Water 250 ML IV 1009 Enoxaparin Sodium 40 MG DAILY 10/22 1000 AC 10/22 SC 1008 Furosemide 0 .STK-MED ONE 10/21 1909 DC IV Furosemide 40 MG ONCE ONE 10/21 1845 DC 10/21 IV 10/21 1846 1935 Ibuprofen 600 MG Q6P PRN 10/21 2115 AC PO Ipratropium [place] 2.5 ML Q6P PRN 10/21 1600 AC INH Losartan Potassium 50 MG DAILY 10/22 1000 AC 10/22 PO 1004 Methylprednisolone 40 MG Q8 10/22 0600 AC 10/22 IV 0549 Metoprolol Tartrate 12.5 MG BID 10/21 2300 AC 10/22 PO 1004 Multivitamins 1 TAB DAILY 10/22 1000 AC 10/22 PO 1004 Nystatin 1 FRANCA TID 10/21 2200 AC 10/22 TOP 1009 Omeprazole 40 MG DAILY AC 10/22 0700 AC 10/22 PO 0549 Oxycodone/ 2 TAB Q6P PRN 10/21 2115 AC Acetaminophen PO Polycarbophil 625 MG DAILY 10/22 1000 AC 10/22 PO 1004 Review of Systems Review of Systems: The review of systems is negative for chest pains, palpitations nor lightheadedness. There has been progressive dyspnea as well as cough and fatigue as above The remainder of the 14 point review of systems is noncontributory with the exception of above. 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 Home Who Do You Live With? spouse Services at Home: None Smoking Status: Former Smoker ETOH Use: occasional use Illicit Drug Use: denies illicit drug use Functional Ability Ambulation: walker Exam & Diagnostic Data Vital Signs and I&O Vital Signs Date Time Temp Pulse Resp B/P B/P Pulse O2 O2 Flow FiO2 Mean Ox Delivery Rate 10/22 1004 82 118/60 10/22 1004 118/60 10/22 0638 97.5 82 18 132/62 95 Nasal Cannula 10/22 0000 98 Nasal 5.0L Cannula 10/21 2125 Nasal 6.0L Cannula 10/21 2124 98.1 111 18 120/72 98 Nasal 6.0L Cannula 10/21 2047 98.3 116 30 136/62 99 Nasal 6.0L Cannula 10/21 1937 98.9 124 28 141/73 99 100% 10/21 1910 98 Venti Mask 45% 10/21 1728 98.0 118 24 144/83 99 8L 10/21 1526 97.9 96 22 163/77 99 Nasal 4.0L Cannula Intake & Output 10/22 1600 10/22 0800 10/22 0000 10/21 1600 10/21 0810/21 0000 Intake Total 250 Output Total 350 750 Balance -100 -750 Intake, Oral 250 Output, Urine 350 750 Patient 265 lb 265 lb Weight Weight Reported by Patient Reported by Patient Measurement Method Physical Exam: General: Nontoxic, no apparent distress. HEENT: Sclera and conjunctiva within normal limits, without xanthelasmas. Neck: Carotids 2+ without bruits. Respiratory: Diffuse rhonchi, decreased throughout, without accessory respiratory muscle use. Heart: Regular rate and rhythm, without murmurs, without JVD. Abdomen: Soft, nontender, no masses, normoactive bowel sounds. Extremities: Without clubbing, without edema, right lower extremity is wrapped. Neuro: Nonfocal exam, strength, 5 out of 5 Skin: Within normal limits without lesions. Psych: Mood and affect: Normal Labs/Ash Results: Laboratory Tests 10/22 10/22 10/21 0621 0045 1725 Blood Gas pH (7.35 - 7.45 PH) 7.38 pCO2 (35 - 45 TORR) 54 H pO2 (80 - 100 TORR) 83 HCO3 (21 - 28 MEQ/L) 31 H ABG O2 Sat (Measured) (>96.0 %) 94.0 L P-50 (Temp Corrected) N Carboxyhemoglobin (1.5 - 5.0 %) 1.4 L O2 Concentration % 40% Temperature (97.0 - 100.0 FARH) 98.0 O2 Delivery Method V/M Chemistry Sodium (137 - 145 mmol/L) 146 H Potassium (3.5 - 5.1 mmol/L) 4.7 Chloride (98 - 107 mmol/L) 96 L Carbon Dioxide (22 - 30 mmol/L) 40 H Anion Gap (5 - 16) 10 BUN (9 - 20 mg/dL) 34 H Creatinine (0.7 - 1.2 mg/dL) 1.1 Estimated GFR (>60 ml/min) > 60 BUN/Creatinine Ratio (7 - 25 %) 30.9 H Troponin I (<0.11 ng/ml) 0.04 Hematology CBC w Diff NO MAN DIFF REQ WBC (4.8 - 10.8 /CUMM) 5.8 RBC (4.70 - 6.10 /CUMM) 3.35 L Hgb (14.0 - 18.0 G/DL) 9.9 L Hct (42 - 52 %) 30.9 L MCV (80.0 - 94.0 FL) 92.2 MCH (27.0 - 31.0 PG) 29.5 RDW (11.5 - 14.5 %) 18.0 H Plt Count (130 - 400 /CUMM) 229 MPV (7.4 - 10.4 FL) 7.6 Gran % (42.2 - 75.2 %) 88.5 H Lymphocytes % (20.5 - 51.1 %) 7.9 L Monocytes % (1.7 - 9.3 %) 3.6 Eosinophils % (0 - 5 %) 0 Basophils % (0.0 - 2.0 %) 0 Absolute Granulocytes (1.4 - 6.5 /CUMM) 5.1 Absolute Lymphocytes (1.2 - 3.4 /CUMM) 0.5 L Absolute Monocytes (0.10 - 0.60 /CUMM) 0.2 Absolute Eosinophils (0.0 - 0.7 /CUMM) 0 Absolute Basophils (0.0 - 0.2 /CUMM) 0 PUBS MCHC (33.0 - 37.0 G/DL) 31.9 L Miscellaneous Phlebotomy Draw Site RIGHT RADIAL 10/21 10/21 1645 1645 Chemistry Sodium (137 - 145 mmol/L) 147 H Potassium (3.5 - 5.1 mmol/L) 4.7 Chloride (98 - 107 mmol/L) 98 Carbon Dioxide (22 - 30 mmol/L) 39 H Anion Gap (5 - 16) 11 BUN (9 - 20 mg/dL) 37 H Creatinine (0.7 - 1.2 mg/dL) 0.9 Estimated GFR (>60 ml/min) > 60 BUN/Creatinine Ratio (7 - 25 %) 41.1 H Glucose (65 - 99 mg/dL) 112 H Calcium (8.4 - 10.2 mg/dL) 9.1 Magnesium (1.6 - 2.3 mg/dL) 2.2 Total Bilirubin (0.2 - 1.3 mg/dL) 0.6 AST (17 - 59 U/L) 25 ALT (21 - 72 U/L) 38 Alkaline Phosphatase (< 127 U/L) 66 Troponin I (<0.11 ng/ml) Cancelled 0.04 [id number]-[id number] Pept (<125 pg/mL) 9460 H Total Protein (6.3 - 8.2 g/dL) 6.4 Albumin (3.5 - 5.0 g/dL) 3.4 L Globulin (1.9 - 4.2 gm/dL) 3.0 Albumin/Globulin Ratio (1.1 - 2.2 %) 1.1 Hematology CBC w Diff NO MAN DIFF REQ WBC (4.8 - 10.8 /CUMM) 7.6 RBC (4.70 - 6.10 /CUMM) 3.53 L Hgb (14.0 - 18.0 G/DL) 10.2 L Hct (42 - 52 %) 32.5 L MCV (80.0 - 94.0 FL) 92.1 MCH (27.0 - 31.0 PG) 28.8 RDW (11.5 - 14.5 %) 17.9 H Plt Count (130 - 400 /CUMM) 226 MPV (7.4 - 10.4 FL) 7.3 L Gran % (42.2 - 75.2 %) 88.5 H Lymphocytes % (20.5 - 51.1 %) 6.9 L Monocytes % (1.7 - 9.3 %) 4.1 Eosinophils % (0 - 5 %) 0.5 Basophils % (0.0 - 2.0 %) 0 Absolute Granulocytes (1.4 - 6.5 /CUMM) 6.7 H Absolute Lymphocytes (1.2 - 3.4 /CUMM) 0.5 L Absolute Monocytes (0.10 - 0.60 /CUMM) 0.3 Absolute Eosinophils (0.0 - 0.7 /CUMM) 0 Absolute Basophils (0.0 - 0.2 /CUMM) 0 PUBS MCHC (33.0 - 37.0 G/DL) 31.3 L Assessment/Plan Assessment/Plan 86-year-old gentleman with past medical history significant for hypertension, osteoporosis, severe aortic stenosis status post AVR(2012), atrial fibrillation status post ablation(2012) not on anticoagulation, obstructive sleep apnea ( noncompliant with CPAP), COPD on 3 L of oxygen at home and heart failure with preserved ejection fraction. He presents with shortness of breath and productive cough for the past 4 days, and was noted in atrial fibrillation. Dyspnea: The patient presents with dyspnea likely secondary to underlying severe COPD, and acute exacerbation, and possibly superimposed infection. There is as well a component of acute on chronic congestive heart failure contributing to his symptoms. We will continue treatment as per pulmonary, and diuresis with IV Lasix, targeting a net output proximally 1 L per day. Aortic stenosis, status post aortic valve replacement: Stable, the patient is due for a routine outpatient echocardiogram, which we will obtain while an inpatient, to exclude an underlying acute change in cardiac status which may have prompted his dyspnea. Atrial fibrillation: The patient has maintained sinus rhythm as an outpatient and is status post atrial fibrillation ablation and left atrial appendage ligation. He has been off anticoagulation as an outpatient; however, presented with atrial fibrillation. The etiology of his decompensation backed atrial fibrillation may be secondary to his acute COPD exacerbation; however, given this, anticoagulation will need to be initiated. Given his age, weight and renal function, we may consider an agent such as Eliquis at 5 mg by mouth twice a day. Rate control may be increasing metoprolol as tolerated Thank you for allowing us to participate in the care of your patient. Please do not hesitate to contact us further with any questions. Sincerely, Yan Monaco MD [facility] Consult Acknowledgment - Thank you for your consult request.
--- NOTE | 2017-10-22 12:52 | Cons- Pulmonary ---
General Information and HPI Consulting Request Date of Consult: 10/22/17 Requested By: Dr. Zhang Reason for Consult: COPD exacerbation, dyspnea Source of Information: patient Exam Limitations: no limitations History of Present Illness: 86-year-old man. Sent to ER after reporting significant dyspnea. [facility]. COPD, has been on home oxygen 3LNC. Pt is on spiriva and dulera, nebulizer tx. He is on o2 24/7. He has significant osteoporosis and bone pain and is unable to carry portable o2 tanks. An attempt was made to provide the patient with a portable oxygen concentrator. He has received the concentrator that is currently pulsed without a continuous flow. During the office visit today with minimal exertion just simply in the wheelchair he desaturates on 3-4 L down to 82 percent SPO2. With rest he recovers to 89% on 3 L nasal cannula with continuous flow. He is a mouth breather has dry mouth, wheezing, leg edema. 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 CXR with cardiomegaly, venous congestion. No leukocytosis, BNP 9460. Completed course of zpak few weeks ago. Difficulty ambulating. Leg wounds . No fevers, no chills, no sick contacts, no travel history. Deconditoned and minimal mobility. Yellow sputum. A.fib, no palpitations. Allergies/Medications Allergies: Coded Allergies: lisinopril (COUGHING 10/21/17) Home Med List: Albuterol Sulfate (Proair Hfa) 90 MCG HFA.AER.AD 2 PUF INH 4XDAILY COPD ( Reported) Aspirin (Ecotrin*) 81 MG TABLET.DR 1 TAB PO EOD HEART/BLOOD (Reported) Calcitriol 0.25 MCG CAPSULE 1 CAP PO DAILY SUPPLEMENT (Reported) Calcium (Elemental-Fr Calcarb) (Calcium) 600 MG CALCIUM (1,500 MG) TABLET 2 TAB PO QPM SUPPLEMENT (Reported) Cholecalciferol (Vitamin D3) (Vitamin D3) 50,000 UNIT CAPSULE 1 CAP PO QWED SUPPLEMENT (Reported) Clotrimazole/Betamethasone Dip (Clotrimazole-Betamethasone Crm) 1 %-0.05 % CREAM..G. 1 FRANCA TOP AD SKIN FOLDS (Reported) apply to affected area(s) Denosumab (Prolia) 60 MG/ML SYRINGE 60 MG INJ Q6M OSTEOPOROSIS (Reported) Furosemide 40 MG TABLET 2 TAB PO QAM DIURETIC (Reported) Losartan Potassium 50 MG TABLET 1 TAB PO DAILY BP (Reported) Metoprolol Tartrate 25 MG TABLET 0.5 TAB PO BID HEART/BP (Reported) Mometasone/Formoterol (Dulera 200 Mcg/5 Mcg Inhaler) 200 MCG-5 MCG/ACTUATION HFA.AER.AD 2 PUF INH BID COPD (Reported) Multivit-Min/FA/Lycopen/Lutein (Centrum Silver Men Tablet) 300 MCG-600 MCG-300 MCG TABLET 1 TAB PO DAILY SUPPLEMENT (Reported) Omeprazole 40 MG CAPSULE.DR 1 CAP PO DAILY GI (Reported) Polycarbophil (Fiber) (Unknown Strength) TABLET (Unknown Dose) PO QPM GI ( Reported) Potassium Chloride 20 MEQ TAB.ER.PRT 1 TAB PO DAILY SUPPLEMENT (Reported) Tiotropium [place] (Spiriva) 18 MCG CAP.W.DEV 1 CAP INH DAILY COPD (Reported) Current Medications: Current Medications Sig/Migue Start time Last Medication Dose Route Stop Time Status Admin Acetaminophen 650 MG .STK-MED ONE 10/22 0552 DC PO 10/22 0553 Acetaminophen 650 MG Q6P PRN 10/21 2115 AC 10/22 PO 0552 Albuterol Sulfate 3 ML BID 10/22 2200 AC INH Albuterol Sulfate 3 ML Q4H PRN 10/21 1600 DC INH Apixaban 5 MG BID 10/22 1301 AC 10/22 PO 1546 Aspirin Buffered 81 MG Q48 10/21 2300 AC 10/22 PO 0021 Azithromycin 500 MG DAILY 10/21 2200 AC 10/22 Dextrose/Water 250 ML IV 1009 Enoxaparin Sodium 40 MG DAILY 10/22 1000 DC 10/22 SC 1008 Furosemide 0 .STK-MED ONE 10/21 1909 DC IV Furosemide 40 MG ONCE ONE 10/21 1845 DC 10/21 IV 10/21 1846 1935 Ibuprofen 600 MG Q6P PRN 10/21 2115 AC PO Ipratropium [place] 2.5 ML Q6P PRN 10/21 1600 DC INH Losartan Potassium 50 MG DAILY 10/22 1000 AC 10/22 PO 1004 Methylprednisolone 40 MG Q8 10/22 0600 AC 10/22 IV 1436 Metoprolol Tartrate 12.5 MG BID 10/21 2300 AC 10/22 PO 1004 Multivitamins 1 TAB DAILY 10/22 1000 AC 10/22 PO 1004 Nystatin 1 FRANCA TID 10/21 2200 AC 10/22 TOP 1009 Omeprazole 40 MG DAILY AC 10/22 0700 AC 10/22 PO 0549 Oxycodone/ 2 TAB Q6P PRN 10/21 2115 AC 10/22 Acetaminophen PO 1435 Polycarbophil 625 MG DAILY 10/22 1000 AC 10/22 PO 1004 Review of Systems Comments 18 point review of systems was performed and reviewed. Please see pertinent positives and pertinent negatives in the HPI. Otherwise ROS is negative. Past History Travel History Traveled to [place] past 21 day No Medical History Blood Transfusion Hx: Yes Neurological: NONE EENT: NONE Cardiovascular: AFIB, aortic stenosis, hypertension, HFpEF s/p a-fib ablation and KARLO ligation Respiratory: COPD, obstructive sleep apnea Gastrointestinal: POLYP REMOVAL HERNIA REPAIR Hepatic: NONE Renal: NONE Musculoskeletal: osteoporosis Psychiatric: NONE Endocrine: NONE Blood Disorders: NONE Cancer(s): NONE [employer] SPECIALIST/Reproductive: NONE Surgical History Surgical History: appendectomy, cholecystectomy, hernia repair-ventral, LIPOMA REMOVAL polypectomy Family History Relations & Conditions If Any: Relation not specified for: *No pertinent family history Psychosocial History Where Do You Live? Home Who Do You Live With? spouse Services at Home: None Smoking Status: Former Smoker ETOH Use: occasional use Illicit Drug Use: denies illicit drug use Functional Ability Ambulation: walker Exam & Diagnostic Data Last 24 Hrs of Vital Signs/I&O Vital Signs Date Time Temp Pulse Resp B/P B/P Pulse O2 O2 Flow FiO2 Mean Ox Delivery Rate 10/22 1422 97.9 93 20 122/62 94 Nasal Cannula 10/22 1033 Nasal 3.0L Cannula 10/22 1004 82 118/60 10/22 1004 118/60 10/22 0800 95 Nasal 5.0L Cannula 10/22 0638 97.5 82 18 132/62 95 Nasal Cannula 10/22 0000 98 Nasal 5.0L Cannula 10/21 2125 Nasal 6.0L Cannula 10/21 2124 98.1 111 18 120/72 98 Nasal 6.0L Cannula 10/21 2047 98.3 116 30 136/62 99 Nasal 6.0L Cannula 10/21 1938 98.9 124 28 141/73 99 100% 10/21 1910 98 Venti Mask 45% 10/21 1728 98.0 118 24 144/83 99 8L Intake & Output 10/22 1600 10/22 0800 10/22 0000 Intake Total 480 250 Output Total 300 350 750 Balance 180 -100 -750 Intake, Oral 480 250 Number 1 Bowel Movements Output, Urine 300 350 750 Patient 265 lb Weight Weight Reported by Patient Measurement Method Physical Exam Other Physical Findings: gen awake and alert, mild conversational dyspnea heent ncat cvs s1, s2, irregular lungs diminished bs bases given body habitus abd obese ext with chronic venous stasis, left leg in a bandage Last 48 Hrs of Labs/Ash: Laboratory Tests 10/22/17 0621: Anion Gap 10, Estimated GFR > 60, BUN/Creatinine Ratio 30.9 H, Iron 30 L, TIBC Pending, Ferritin Pending, Vitamin B12 Pending, Folate Pending, CBC w Diff NO MAN DIFF REQ, RBC 3.35 L, MCV 92.2, MCH 29.5, RDW 18.0 H, MPV 7.6, Gran % 88.5 H, Lymphocytes % 7.9 L, Monocytes % 3.6, Eosinophils % 0, Basophils % 0, Absolute Granulocytes 5.1, Absolute Lymphocytes 0.5 L, Absolute Monocytes 0.2, Absolute Eosinophils 0, Absolute Basophils 0, PUBS MCHC 31.9 L 10/22/17 0045: Troponin I 0.04 10/21/17 172: pH 7.38, pCO2 54 H, pO2 83, HCO3 31 H, ABG O2 Sat (Measured) 94.0 L, P-50 ( Temp Corrected) N, Carboxyhemoglobin 1.4 L, O2 Concentration % 40%, Temperature 98.0, O2 Delivery Method V/M, Phlebotomy Draw Site RIGHT RADIAL 10/21/17 1645: Troponin I Cancelled 10/21/17 164: Anion Gap 11, Estimated GFR > 60, BUN/Creatinine Ratio 41.1 H, Glucose 112 H, Calcium 9.1, Magnesium 2.2, Total Bilirubin 0.6, AST 25, ALT 38, Alkaline Phosphatase 66, Troponin I 0.04, Xqb-[id number]-Ulhjctonmtx Pept 9460 H, Total Protein 6.4, Albumin 3.4 L, Globulin 3.0, Albumin/Globulin Ratio 1.1, CBC w Diff NO MAN DIFF REQ, RBC 3.53 L, MCV 92.1, MCH 28.8, RDW 17.9 H, MPV 7.3 L, Gran % 88.5 H, Lymphocytes % 6.9 L, Monocytes % 4.1, Eosinophils % 0.5, Basophils % 0, Absolute Granulocytes 6.7 H, Absolute Lymphocytes 0.5 L, Absolute Monocytes 0.3, Absolute Eosinophils 0, Absolute Basophils 0, PUBS MCHC 31.3 L Assessment/Plan Impression/Plan: Impression 86 year old man * Dyspnea - likely acute exacerbation of COPD accompanied by a possible tracheobronchitis and also underlying acute on chronic chf exacerbation in setting of severe (AVR 2012) Plan -f/u cardiology/ECHO -cont solumedrol 40mg iv q8h -monitor finger sticks -cont eliquis -5 day course of zithromax -rate control -TRC/Nebs -Incentive spirometry DVT prophylaxis at all times (started on Eliquis) Consult Acknowledgment - Thank you for your consult request.
[2017-10-22 14:22] VITALS: BP 122/62
[2017-10-22 22:26] VITALS: BP 120/62
[2017-10-23 06:23] VITALS: BP 124/78
[2017-10-23 07:13] LABS: ABSOLUTE BASOPHIL COUNT 0 /CUMM (0.0-0.2); ABSOLUTE EOSINOPHIL COUNT 0 /CUMM (0.0-0.7); ABSOLUTE GRANULOCYTE CT 9.9 /CUMM (1.4-6.5); ABSOLUTE LYMPH COUNT 0.5 /CUMM (1.2-3.4); ABSOLUTE MONOCYTE COUNT 0.6 /CUMM (0.10-0.60); BASOPHIL % 0.1 % (0.0-2.0); EOSINOPHIL % 0 % (0-5); GRANULOCYTE % 90.1 % (42.2-75.2); HEMATOCRIT 31.2 % (42-52); MEAN CORPUSCULAR HGB 29.4 PG (27.0-31.0); MEAN CORPUSCULAR HGB CONC 31.9 G/DL (33.0-37.0); MEAN CORPUSCULAR VOLUME 92.2 FL (80.0-94.0); MEAN PLATELET VOLUME 7.9 FL (7.4-10.4); PLATELET COUNT 247 /CUMM (130-400); RBC DISTRIBUTION WIDTH 17.9 % (11.5-14.5); RED BLOOD CELL CT 3.39 /CUMM (4.70-6.10)
--- NOTE | 2017-10-23 10:26 | PN- Housestaff ---
Kenroy COLES,Tra 10/23/17 1025: Subjective Follow-up For: COPD/CHF Tele-Events Since Last Visit: Afib, 90-120 Subjective: No overnight events. Feels like he is improving, and wants rehab in [place]. No CP or other issues. Review of Systems Constitutional: Reports: no symptoms. EENTM: Reports: no symptoms. Cardiovascular: Reports: no symptoms. Respiratory: Reports: see HPI. Gastrointestinal: Reports: no symptoms. Genitourinary: Reports: no symptoms. Musculoskeletal: Reports: no symptoms. Skin: Reports: no symptoms. Neurological/Psychological: Reports: no symptoms. Hematologic/Endocrine: Reports: no symptoms. Immunologic/Allergic: Reports: no symptoms. Objective Last 24 Hrs of Vital Signs/I&O Vital Signs Date Time Temp Pulse Resp B/P B/P Pulse O2 O2 Flow FiO2 Mean Ox Delivery Rate 10/23 1003 98 Nasal 4.0L Cannula 10/23 0904 88 124/78 10/23 0904 88 124/78 10/23 0800 94 Nasal 3.0L Cannula 10/23 0623 97.7 77 22 124/78 97 Nasal 6.0L Cannula 10/23 0000 95 Nasal 5.0L Cannula 10/22 2226 98.1 98 20 120/62 96 Nasal 6.0L Cannula 10/22 2105 96 Nasal 4.0L Cannula 10/22 2102 93 122/62 10/22 1600 Nasal 5.0L Cannula 10/22 1422 97.9 93 20 122/62 94 Nasal Cannula Intake & Output 10/23 1600 10/23 0800 10/23 0000 Intake Total 200 200 Output Total 475 500 Balance -275 -300 Intake, Oral 200 200 Output, Urine 475 500 Physical Exam General Appearance: Alert, Oriented X3, Cooperative, No Acute Distress Cardiovascular: irregular Lungs: crackles Abdomen: Normal Bowel Sounds, Soft, No Tenderness Extremities: wrapped Current Medications: Current Medications Sig/Migue Start time Last Medication Dose Route Stop Time Status Admin Acetaminophen 650 MG Q6P PRN 10/21 2115 AC 10/22 PO 0552 Albuterol Sulfate 3 ML BID 10/22 2200 AC 10/23 INH 1003 Albuterol Sulfate 3 ML Q4H PRN 10/21 1600 DC INH Apixaban 5 MG BID 10/22 1301 AC 10/23 PO 0904 Aspirin Buffered 81 MG Q48 10/21 2300 AC 10/23 PO 0904 Azithromycin 500 MG DAILY 10/21 2200 AC 10/23 Dextrose/Water 250 ML IV 0905 Enoxaparin Sodium 40 MG DAILY 10/22 1000 DC 10/22 SC 1008 Furosemide 40 MG 0700,1600 10/23 1600 AC IV Furosemide 40 MG BID 10/22 1630 DC 10/23 IV 0905 Ibuprofen 600 MG Q6P PRN 10/21 211 AC PO Ipratropium [place] 2.5 ML Q6P PRN 10/21 1600 DC INH Losartan Potassium 50 MG DAILY 10/22 1000 AC 10/23 PO 0904 Methylprednisolone 40 MG Q8 10/22 0600 AC 10/23 IV 0650 Metoprolol Tartrate 12.5 MG BID 10/21 2300 AC 10/23 PO 0904 Multivitamins 1 TAB DAILY 10/22 1000 AC 10/23 PO 0903 Nystatin 1 FRANCA TID 10/210 AC 10/23 TOP 0905 Omeprazole 40 MG DAILY AC 10/22 0700 AC 10/23 PO 0649 Oxycodone/ 2 TAB Q6P PRN 10/21 2114 AC 10/23 Acetaminophen PO 0650 Polycarbophil 625 MG DAILY 10/22 1000 AC 10/23 PO 0904 Last 24 Hrs of Lab/Ash Results Last 24 Hrs of Labs/Mics: Laboratory Tests 10/23/17 0610: Anion Gap 12, Estimated GFR 52 L, BUN/Creatinine Ratio 36.2 H, CBC w Diff NO MAN DIFF REQ, RBC 3.39 L, MCV 92.2, MCH 29.4, RDW 17.9 H, MPV 7.9, Gran % 90.1 H, Lymphocytes % 4.5 L, Monocytes % 5.3, Eosinophils % 0, Basophils % 0.1, Absolute Granulocytes 9.9 H, Absolute Lymphocytes 0.5 L, Absolute Monocytes 0.6, Absolute Eosinophils 0, Absolute Basophils 0, PUBS MCHC 31.9 L Assessment/Plan Assessment: Mr. Moyer is a 76-year-old obese gentleman presented with shortness of breath and productive cough for the past 4 days. PMH: HTN, osteoporosis, severe s/p AVR (2012), AF s/p ablation(2012), ELIZ ( noncompliant with CPAP), COPD on 3 L of oxygen at home and HFpEF, recent finished prednisone taper A/P; 1. Acute hypoxemic hypercarbic respiratory failure Secondary to COPD exacerbation and heart failure; Patient has worsening productive cough, shortness of breath and hypoxia with increase in her oxygen requirement, and PCO2 level of 54 on ABGs. Patient also has a history of severe aortic stenosis status post valve replacement in 2012, echocardiogram at that time showed ejection fraction of 55%. Patient currently has JVD on examination and a ProBNP Level of 9460. Chest x-ray shows cardiomegaly with venous congestion and chronic pulmonary hypertension. Leukocytosis today. ACS was ruled out by serial EKG and TN. - Continue telemetry - Continue IV Solu-Medrol 40 mg every 12. Taper. - IV azithromycin - Continue Supplemental oxygen - TRC nebs - Cotinue IV Lasix 40mg BID. - Follow Echocardiogram - Cardiology consult - Follow-up sputum culture - Follow Pulm - Continue home medications. -PT evaluation 2. Atrial fibrillation (status post ablation); Per the patient he is not on any anticoagulation as he was reverted back to sinus rhythm after ablation and he did not require any anticoagulation. Patient currently has a JACOBO VASC score of 4. current afib is most likely in setting of COPD exacerbation but we will start AC. - Continue metoprolol - Eliquise 5mg BID for anticoag - follow Cardiology -Follow-up echocardiogram 3. Hypernatremia; acute kidney injury: Creatinine 1.4 today. - Current sodium level is 146. - Will repeat labs in a.m. 4. Chronic anemia; - H&H 10.2/32.5, RDW 17.9 Iron low, folate and B12 normal. -Start ferrous sulfate 5. Hypertension, osteoporosis, obstructive sleep apnea; - Continue home medications and CPAP. 6. Chronic left lower extremity wounds; - Wound consult DVT prophylaxis; subcutaneous Lovenox Patient is full code heart healthy diet Problem List: 1. CHF EXACERBATION 2. COPD Pain Ratin Pain Location: no Pain Goal: Remain pain free Pain Plan: see a/p Tomorrow's Labs & Rationales: gibson carrillo MD, Roman 10/23/17 1027: Attending MD Review Statement Attending Statement Attending Statement: examined this patient, discuss w/resident/PA/HEEL EDGE INKER MACHINE, agreed w/resident/PA/HEEL EDGE INKER MACHINE, discussed with family, reviewed EMR data (avail), discussed with nursing, discussed with case mgmt, reviewed images, amended to note Attending Assessment/Plan: Impression 86 year old man * Dyspnea - likely acute exacerbation of COPD accompanied by a possible tracheobronchitis and also underlying acute on chronic chf exacerbation in setting of severe (AVR 2012) * deconditioning/obesity Plan -f/u cardiology/ECHO -cont solumedrol 40mg iv q12h -monitor finger sticks -cont eliquis -5 day course of zithromax -rate control -TRC/Nebs -Incentive spirometry -PT eval - pt amenable to rehab DVT prophylaxis at all times (started on Eliquis)
[2017-10-23 14:59] VITALS: BP 130/60
[2017-10-23 23:00] VITALS: BP 118/62
[2017-10-24 06:43] VITALS: BP 138/74
[2017-10-24 08:27] LABS: ABSOLUTE BASOPHIL COUNT 0 /CUMM (0.0-0.2); ABSOLUTE EOSINOPHIL COUNT 0 /CUMM (0.0-0.7); ABSOLUTE GRANULOCYTE CT 10.5 /CUMM (1.4-6.5); ABSOLUTE LYMPH COUNT 0.4 /CUMM (1.2-3.4); ABSOLUTE MONOCYTE COUNT 0.5 /CUMM (0.10-0.60); BASOPHIL % 0 % (0.0-2.0); EOSINOPHIL % 0 % (0-5); HEMATOCRIT 32.3 % (42-52); MEAN CORPUSCULAR HGB 29.4 PG (27.0-31.0); MEAN CORPUSCULAR HGB CONC 31.8 G/DL (33.0-37.0); MEAN CORPUSCULAR VOLUME 92.6 FL (80.0-94.0); PLATELET COUNT 259 /CUMM (130-400); RBC DISTRIBUTION WIDTH 18.1 % (11.5-14.5); RED BLOOD CELL CT 3.49 /CUMM (4.70-6.10); WHITE BLOOD CELL COUNT 11.4 /CUMM (4.8-10.8)
--- NOTE | 2017-10-24 08:50 | PN- Housestaff ---
Gerson Corbett MD,Ami 10/24/17 0850: Subjective Follow-up For: Acute hypoxemic hypercarbic respiratory failure likely 2/2 COPD exacerbation and heart failure Atrial fibrillation (status post ablation) Tele-Events Since Last Visit: Afib 86-90 Subjective: Patient visited today, was lying in bed comfortably in mild distress, was alert and oriented. reported improved SOB but still has cough and yellow color. No fever or chills, no chest pain, no other events. would continue IV solumedrol today with plan to change to PO pred tomorrow. PT evaluation/treat requested. Review of Systems Constitutional: Reports: see HPI. Objective Last 24 Hrs of Vital Signs/I&O Vital Signs Date Time Temp Pulse Resp B/P B/P Pulse O2 O2 Flow FiO2 Mean Ox Delivery Rate 10/24 1611 94 Nasal 4.0L Cannula 10/24 1039 94 Nasal 4.0L Cannula 10/24 0856 107 130/68 10/24 0855 130/68 10/24 0806 94 Nasal 4.0L Cannula 10/24 0643 97.4 73 22 138/74 96 Nasal 4.0L Cannula 10/23 2347 Nasal 4.0L Cannula 10/23 2300 97.8 91 22 118/62 97 Nasal 4.0L Cannula 10/23 2040 93 136/64 10/23 2023 95 Nasal 4.0L Cannula Intake & Output 10/24 1600 10/24 0800 10/24 0000 Intake Total 650 280 320 Output Total 800 700 100 Balance -150 -420 220 Intake, IV 250 Intake, Oral 400 280 320 Output, Urine 800 700 100 Physical Exam General Appearance: Alert, Oriented X3, Cooperative, Mild Distress Skin: skin lesion over foot, wrapped Skin Temp/Moisture Exam: Warm/Dry Sepsis Skin Exam (color): Normal for Ethnicity HEENT: Atraumatic, EOMI, Mucous Membr. moist/pink Cardiovascular: Normal S1, Normal S2, irreg irreg Lungs: bilateral ronchi and crackles Abdomen: Soft, No Tenderness Extremities: wrapped Current Medications: Current Medications Sig/Migue Start time Last Medication Dose Route Stop Time Status Admin Acetaminophen 650 MG Q6P PRN 10/21 2115 AC 10/22 PO 0552 Albuterol Sulfate 3 ML BID 10/22 2200 AC 10/24 INH 1037 Apixaban 5 MG BID 10/22 1301 AC 10/24 PO 0856 Aspirin Buffered 81 MG Q48 10/21 2300 AC 10/23 PO 0904 Azithromycin 500 MG DAILY 10/21 2200 AC 10/24 Dextrose/Water 250 ML IV 0855 Ferrous Sulfate 325 MG BID 10/23 1224 AC 10/24 PO 0855 Furosemide 40 MG 0700,1600 10/23 1600 AC 10/24 IV 1542 Losartan Potassium 50 MG DAILY 10/22 1000 AC 10/24 PO 0855 Methylprednisolone 40 MG Q12 10/23 2200 r 10/24 IV 10/25 0800 0855 Metoprolol Tartrate 12.5 MG BID 10/21 2300 AC 10/24 PO 0856 Multivitamins 1 TAB DAILY 10/22 1000 AC 10/24 PO 0856 Nystatin 1 FRANCA TID 10/21 2199 AC 10/24 TOP 1542 Omeprazole 40 MG DAILY AC 10/22 0700 AC 10/24 PO 0439 Oxycodone/ 2 TAB Q6P PRN 10/21 2115 AC 10/24 Acetaminophen PO 1456 Polycarbophil 625 MG DAILY 10/22 1000 AC 10/24 PO 0857 Prednisone 40 MG DAILY 10/25 1000 AC PO Last 24 Hrs of Lab/Ash Results Last 24 Hrs of Labs/Mics: Laboratory Tests 10/24/17 0628: Anion Gap 12, Estimated GFR 44 L, BUN/Creatinine Ratio 41.3 H, CBC w Diff NO MAN DIFF REQ, RBC 3.49 L, MCV 92.6, MCH 29.4, RDW 18.1 H, MPV 8.0, Gran % 92.0 H, Lymphocytes % 3.7 L, Monocytes % 4.3, Eosinophils % 0, Basophils % 0, Absolute Granulocytes 10.5 H, Absolute Lymphocytes 0.4 L, Absolute Monocytes 0.5, Absolute Eosinophils 0, Absolute Basophils 0, PUBS MCHC 31.8 L Assessment/Plan Assessment: Mr. Moyer is a 76-year-old obese gentleman presented with shortness of breath and productive cough for the past 4 days. PMH: HTN, osteoporosis, severe s/p AVR (2012), AF s/p ablation(2012), ELIZ ( noncompliant with CPAP), COPD on 3 L of oxygen at home and HFpEF, recent finished prednisone taper A/P; 1. Acute hypoxemic hypercarbic respiratory failure Secondary to COPD exacerbation and heart failure; Patient has worsening productive cough, shortness of breath and hypoxia with increase in her oxygen requirement, and PCO2 level of 54 on ABGs. Patient also has a history of severe aortic stenosis status post valve replacement in 2012, echocardiogram at that time showed ejection fraction of 55%. Patient currently has JVD on examination and a ProBNP Level of 9460. Chest x-ray shows cardiomegaly with venous congestion and chronic pulmonary hypertension. Leukocytosis today. ACS was ruled out by serial EKG and TN. - Continue telemetry - Continue IV Solu-Medrol 40 mg every 12. - taper tomorrow with PO prednisoe 40mg - IV azithromycin - Continue Supplemental oxygen - TRC nebs - Cotinue IV Lasix 40mg BID. - Follow Echocardiogram - Cardiology consult - Follow-up sputum culture - Follow Pulm - Continue home medications. - PT evaluation in AM 2. Atrial fibrillation (status post ablation); Per the patient he is not on any anticoagulation as he was reverted back to sinus rhythm after ablation and he did not require any anticoagulation. Patient currently has a JACOBO VASC score of 4. current afib is most likely in setting of COPD exacerbation but we will start AC. relatively controlled - Continue metoprolol - Eliquise 5mg BID for anticoag - follow Cardiology - Follow-up echocardiogram 3. Hypernatremia; acute kidney injury: Creatinine 1.5 today. - Current sodium level is 142. - Will repeat labs in a.m. 4. Chronic anemia; - H&H 10.2/32.5, RDW 17.9 Iron low, folate and B12 normal. -continue ferrous sulfate 5. Hypertension, osteoporosis, obstructive sleep apnea; - Continue home medications and CPAP. 6. Chronic left lower extremity wounds; - Wound consult DVT prophylaxis; subcutaneous Lovenox Patient is full code heart healthy diet Problem List: 1. Atrial fibrillation 2. Acute and chronic respiratory failure with hypoxia 3. COPD exacerbation Pain Ratin Pain Location: None at time of interview Pain Goal: Pain 4 or less Pain Plan: Continue current plan Tomorrow's Labs & Rationales: Cody Dos Santos MD 10/24/17 1045: Attending Review Statement Attending Statement Attending MD Statement: examined this patient, discuss w/resident/PA/LEGAL ADVISER, agreed w/resident/PA/LEGAL ADVISER, discussed with family, reviewed EMR data (avail), discussed with nursing, discussed with case mgmt, reviewed images, amended to note Attending Assessment/Plan: Impression 86 year old man * Dyspnea - likely acute exacerbation of COPD accompanied by a possible tracheobronchitis and also underlying acute on chronic chf exacerbation in setting of severe (AVR 2012) * deconditioning/obesity Plan -f/u cardiology/ECHO -cont solumedrol 40mg iv q12h - tomorrow 10/25 begin prednisone po 40mg -monitor finger sticks -cont eliquis -5 day course of zithromax -rate control -TRC/Nebs -Incentive spirometry -PT eval - pt amenable to rehab - please have case management discuss options with him and DVT prophylaxis at all times (started on Eliquis)
--- NOTE | 2017-10-24 19:18 | PN- Cardiology ---
Subjective Subjective: Breathing improved, but remains on 4 L nasal cannula. Objective Vital Signs and I&Os Vital Signs Date Time Temp Pulse Resp B/P B/P Pulse O2 O2 Flow FiO2 Mean Ox Delivery Rate 10/24 1848 93 Nasal 4.0L Cannula 10/24 1611 94 Nasal 4.0L Cannula 10/24 1039 94 Nasal 4.0L Cannula 10/24 0856 107 130/68 10/24 0855 130/68 10/24 0806 94 Nasal 4.0L Cannula 10/24 0643 97.4 73 22 138/74 96 Nasal 4.0L Cannula 10/23 2347 Nasal 4.0L Cannula 10/23 2300 97.8 91 22 118/62 97 Nasal 4.0L Cannula 10/23 2040 93 136/64 10/23 2023 95 Nasal 4.0L Cannula Intake & Output 10/24 1600 10/24 0800 10/24 0000 10/23 1600 10/23 0800 10/23 0000 Intake Total 650 008 100 9169 200 200 Output Total 800 700 100 750 475 500 Balance -150 -420 220 925 -275 -300 Intake, IV 250 275 Intake, Oral 400 584 401 7277 200 200 Output, Urine 800 700 100 750 475 500 Physical Exam: Morbidly obese male in no acute distress with cyanotic lips on nasal O2. Vital signs: See above. Neck: No JVD, Lungs: Decreased breath sounds bilaterally. Heart: S1, S2 with soft systolic murmur heard at the base. Abdomen: Soft, nontender, positive bowel sounds. Extremities: No edema. Assessment/Plan Assessment/Plan [id number] w/ hx HTN, severe s/p AVR (2012), AF s/p ablation (2012) w/o AC , ELIZ w/ CPAP noncompliance, severe COPD on home 02 (3 L), & HFpEF who presented with a four-day history of SOB and productive cough c/w AECOPD. Continues to slowly improve on present regimen and continue with same. Continue telemetry? Yes
[2017-10-24 19:34] VITALS: BP 150/50
[2017-10-24 21:35] VITALS: BP 118/66
[2017-10-25 07:14] VITALS: BP 116/62
[2017-10-25 08:19] LABS: ABSOLUTE BASOPHIL COUNT 0 /CUMM (0.0-0.2); ABSOLUTE EOSINOPHIL COUNT 0 /CUMM (0.0-0.7); ABSOLUTE GRANULOCYTE CT 9.8 /CUMM (1.4-6.5); ABSOLUTE LYMPH COUNT 0.4 /CUMM (1.2-3.4); ABSOLUTE MONOCYTE COUNT 0.6 /CUMM (0.10-0.60); BASOPHIL % 0.1 % (0.0-2.0); EOSINOPHIL % 0 % (0-5); GRANULOCYTE % 90.5 % (42.2-75.2); HEMATOCRIT 34.2 % (42-52); MEAN CORPUSCULAR HGB 29.2 PG (27.0-31.0); MEAN CORPUSCULAR HGB CONC 31.8 G/DL (33.0-37.0); MEAN CORPUSCULAR VOLUME 91.8 FL (80.0-94.0); PLATELET COUNT 272 /CUMM (130-400); RBC DISTRIBUTION WIDTH 17.9 % (11.5-14.5); RED BLOOD CELL CT 3.72 /CUMM (4.70-6.10); WHITE BLOOD CELL COUNT 10.8 /CUMM (4.8-10.8)
--- NOTE | 2017-10-25 08:28 | PN- Housestaff ---
Gerson Corbett MD,Ami 10/25/17 0828: Subjective Follow-up For: Acute hypoxemic hypercarbic respiratory failure likely 2/2 COPD exacerbation and heart failure Atrial fibrillation (status post ablation) Tele-Events Since Last Visit: afib 83-91 Subjective: Patient visited today, was sitting at the bedside comfortably in no acute distress, was alert and oriented. On 4l o2, baseline 3L. No fever or chills, no shortness of breathing, no chest pain, no other events. Solumedrol changed to PO prednisone with plan to tapering. Review of Systems Constitutional: Reports: see HPI. Objective Last 24 Hrs of Vital Signs/I&O Vital Signs Date Time Temp Pulse Resp B/P B/P Pulse O2 O2 Flow FiO2 Mean Ox Delivery Rate 10/25 1435 98.2 85 20 140/72 94 Nasal 3.0L Cannula 10/25 1309 Nasal 4.0L Cannula 10/25 0918 124/74 10/25 0918 124/74 10/25 0815 93 Nasal 4.0L Cannula 10/25 0803 96 Nasal 3.0L Cannula 10/25 0714 97.9 85 20 116/62 97 Nasal Cannula 10/25 0000 Nasal 4.0L Cannula 10/24 2135 98.6 100 20 118/66 95 10/24 2124 106 112/70 10/24 1934 98.2 87 24 150/50 94 10/24 1848 93 Nasal 4.0L Cannula 10/24 1611 94 Nasal 4.0L Cannula Intake & Output 10/25 1600 10/25 0800 10/25 0000 Intake Total 400 200 200 Output Total 700 450 450 Balance -300 -250 -250 Intake, Oral 400 200 200 Output, Urine 700 450 450 Physical Exam General Appearance: Alert, Oriented X3, Cooperative, No Acute Distress Skin: bilateral legs wrapped, chornic skin lesions Skin Temp/Moisture Exam: Warm/Dry Sepsis Skin Exam (color): Normal for Ethnicity HEENT: Atraumatic, EOMI, Mucous Membr. moist/pink Neck: No JVD Cardiovascular: Normal S1, Normal S2, Irreg irreg Lungs: Clear to Auscultation Abdomen: Soft, No Tenderness Extremities: wrapped as above, chronic skin lesions Current Medications: Current Medications Sig/Migue Start time Last Medication Dose Route Stop Time Status Admin Acetaminophen 650 MG Q6P PRN 10/21 2114 AC 10/22 PO 0552 Albuterol Sulfate 3 ML BID 10/22 2200 AC 10/25 INH 0813 Apixaban 5 MG BID 10/22 1301 AC 10/25 PO 0918 Aspirin Buffered 81 MG Q48 10/21 2300 AC 10/25 PO 0918 Azithromycin 250 MG DAILY 10/25 1047 DC 10/25 PO 10/29 1001 1128 Azithromycin 500 MG DAILY 10/21 2200 DC 10/24 Dextrose/Water 250 ML IV 0855 Ferrous Sulfate 325 MG BID 10/23 1224 AC 10/25 PO 0918 Furosemide 40 MG DAILY 10/26 1000 AC IV Furosemide 40 MG 0700,1600 10/23 1600 DC 10/25 IV 0609 Losartan Potassium 50 MG DAILY 10/22 1000 AC 10/25 PO 0918 Methylprednisolone 40 MG Q12 10/23 2200 DC 10/24 IV 10/25 0800 2124 Metoprolol Tartrate 12.5 MG BID 10/21 2300 AC 10/25 PO 0918 Multivitamins 1 TAB DAILY 10/22 1000 AC 10/25 PO 0918 Nystatin 1 FRANCA TID 10/21 2200 AC 10/25 TOP 0919 Omeprazole 40 MG DAILY AC 10/22 0700 AC 10/25 PO 0609 Oxycodone/ 2 TAB Q6P PRN 10/21 2114 AC 10/25 Acetaminophen PO 0610 Polycarbophil 625 MG DAILY 10/22 1000 AC 10/25 PO 0917 Prednisone 40 MG DAILY 10/25 1000 AC 10/25 PO 0919 Last 24 Hrs of Lab/Ash Results Last 24 Hrs of Labs/Mics: Laboratory Tests 10/25/17 0700: Anion Gap 15, Estimated GFR 52 L, BUN/Creatinine Ratio 46.9 H, CBC w Diff MAN DIFF ORDERED, RBC 3.72 L, MCV 91.8, MCH 29.2, RDW 17.9 H, MPV 8.0, Gran % 90.5 H, Lymphocytes % 3.8 L, Monocytes % 5.6, Eosinophils % 0, Basophils % 0.1, Absolute Granulocytes 9.8 H, Absolute Lymphocytes 0.4 L, Absolute Monocytes 0.6, Absolute Eosinophils 0, Absolute Basophils 0, Platelet Estimate VERIFIED BY SMEAR, Polychromasia 1+, Poikilocytosis 1+, Basophilic Stippling 1+, Anisocytosis 1+, Ovalocytes 1+, Stomatocytes 1+, PUBS MCHC 31.8 L Assessment/Plan Assessment: Mr. Moyer is a 76-year-old obese gentleman presented with shortness of breath and productive cough for the past 4 days. PMH: HTN, osteoporosis, severe s/p AVR (2012), AF s/p ablation(2013), ELIZ ( noncompliant with CPAP), COPD on 3 L of oxygen at home and HFpEF, recent finished prednisone taper A/P; 1. Acute hypoxemic hypercarbic respiratory failure Secondary to COPD exacerbation and heart failure; Patient has worsening productive cough, shortness of breath and hypoxia with increase in her oxygen requirement, and PCO2 level of 54 on ABGs. Patient also has a history of severe aortic stenosis status post valve replacement in 2012, echocardiogram at that time showed ejection fraction of 55%. Patient currently has JVD on examination and a ProBNP Level of 9460. Chest x-ray shows cardiomegaly with venous congestion and chronic pulmonary hypertension. Leukocytosis today. ACS was ruled out by serial EKG and TN. - Continue telemetry - Continue IV Solu-Medrol 40 mg every 12. - taper tomorrow with PO prednisone 40mg - azithromycin changed to PO - Continue Supplemental oxygen - TRC nebs - decrease IV Lasix 40mg daily - Follow Echocardiogram - Cardiology consult - Follow-up sputum culture - Follow Pulm - Continue home medications. - PT evaluation in AM 2. Atrial fibrillation (status post ablation); Per the patient he is not on any anticoagulation as he was reverted back to sinus rhythm after ablation and he did not require any anticoagulation. Patient currently has a JACOBO VASC score of 4. current afib is most likely in setting of COPD exacerbation but we will start AC. relatively controlled - Continue metoprolol - Eliquise 5mg BID for anticoag - follow Cardiology - Follow-up echocardiogram 3. Hypernatremia; acute kidney injury: Creatinine 1.5 today. - Current sodium level is 143. - Will repeat labs in a.m. 4. Chronic anemia; - H&H 10.9 - Iron low, folate and B12 normal. - continue ferrous sulfate 5. Hypertension, osteoporosis, obstructive sleep apnea; - Continue home medications and CPAP. 6. Chronic left lower extremity wounds; - Wound consult DVT prophylaxis; subcutaneous Lovenox Patient is full code heart healthy diet Problem List: 1. Acute and chronic respiratory failure with hypoxia 2. Atrial fibrillation 3. COPD exacerbation Pain Ratin Pain Location: None at time of interview Pain Goal: Pain 4 or less Pain Plan: Continue currnet plan Tomorrow's Labs & Rationales: ALMA Tru Zhang 10/25/17 1720: Attending MD Review Statement Attending Statement Attending MD Statement: examined this patient, discuss w/resident/PA/CARPENTER MINE, agreed w/resident/PA/CARPENTER MINE, discussed with family, reviewed EMR data (avail), discussed with nursing, discussed with case mgmt Attending Assessment/Plan: d/w pt and pts about [facility]Y placement and they are ok with that plan. Pt admitted with copd exacerbation and chf exacerbation and currently doing better. pt has chronic resp failure and is on home oxygen at 3 L. currentl on po prednisone and po lasix and zithromax.
--- NOTE | 2017-10-25 10:19 | PN- Pulmonary ---
Subjective HPI/Critical Care Issues: Patient seen and examined this morning. He appears to be doing much better and he is awaiting rehabilitation evaluation. He does desaturate with ambulation to below 80. Objective Current Medications: Current Medications Sig/Migue Start time Last Medication Dose Route Stop Time Status Admin Acetaminophen 650 MG Q6P PRN 10/21 2115 AC 10/22 PO 0552 Albuterol Sulfate 3 ML BID 10/22 2200 AC 10/25 INH 0813 Apixaban 5 MG BID 10/22 1301 AC 10/25 PO 0918 Aspirin Buffered 81 MG Q48 10/21 2300 AC 10/25 PO 0918 Azithromycin 500 MG DAILY 10/21 2200 AC 10/24 Dextrose/Water 250 ML IV 0855 Ferrous Sulfate 325 MG BID 10/23 1224 AC 10/25 PO 0918 Furosemide 40 MG 0700,1600 10/23 1600 AC 10/25 IV 0609 Losartan Potassium 50 MG DAILY 10/22 1000 AC 10/25 PO 0918 Methylprednisolone 40 MG Q12 10/23 2200 DC 10/24 IV 10/25 0800 2124 Metoprolol Tartrate 12.5 MG BID 10/21 2300 AC 10/25 PO 0918 Multivitamins 1 TAB DAILY 10/22 1000 AC 10/25 PO 0918 Nystatin 1 FRANCA TID 10/21 2200 AC 10/25 TOP 0919 Omeprazole 40 MG DAILY AC 10/22 0700 AC 10/25 PO 0609 Oxycodone/ 2 TAB Q6P PRN 10/21 2114 AC 10/25 Acetaminophen PO 0610 Polycarbophil 625 MG DAILY 10/22 1000 AC 10/25 PO 0917 Prednisone 40 MG DAILY 10/25 1000 AC 10/25 PO 0919 Vital Signs & I&O Last 24 Hrs of Vitals and I&O: Vital Signs Date Time Temp Pulse Resp B/P B/P Pulse O2 O2 Flow FiO2 Mean Ox Delivery Rate 10/25 0918 124/74 10/25 0918 124/74 10/25 0815 93 Nasal 4.0L Cannula 10/25 0803 96 Nasal 3.0L Cannula 10/25 0714 97.9 85 20 116/62 97 Nasal Cannula 10/25 0000 Nasal 4.0L Cannula 10/24 2134 98.6 100 20 118/66 95 10/24 2123 106 112/70 10/24 1934 98.2 87 24 150/50 94 10/24 1848 93 Nasal 4.0L Cannula 10/24 1611 94 Nasal 4.0L Cannula 10/24 1039 94 Nasal 4.0L Cannula Intake & Output 10/25 1600 10/25 0800 10/25 0000 Intake Total 200 200 Output Total 450 450 Balance -250 -250 Intake, Oral 200 200 Output, Urine 450 450 Exam Other Physical Findings: gen awake and alert, mild conversational dyspnea heent ncat cvs s1, s2, irregular lungs diminished bs bases given body habitus abd obese ext bandages are present Results Last 24 Hrs of Lab Results: Laboratory Tests 10/25/17 0700: Anion Gap 15, Estimated GFR 52 L, BUN/Creatinine Ratio 46.9 H, CBC w Diff MAN DIFF ORDERED, RBC 3.72 L, MCV 91.8, MCH 29.2, RDW 17.9 H, MPV 8.0, Gran % 90.5 H, Lymphocytes % 3.8 L, Monocytes % 5.6, Eosinophils % 0, Basophils % 0.1, Absolute Granulocytes 9.8 H, Absolute Lymphocytes 0.4 L, Absolute Monocytes 0.6, Absolute Eosinophils 0, Absolute Basophils 0, Platelet Estimate VERIFIED BY SMEAR, Polychromasia 1+, Poikilocytosis 1+, Basophilic Stippling 1+, Anisocytosis 1+, Ovalocytes 1+, Stomatocytes 1+, PUBS MCHC 31.8 L Impression/Plan Impression/Plan Impression/Plan: Impression 86 year old man * Dyspnea - likely acute exacerbation of COPD accompanied by a possible tracheobronchitis and also underlying acute on chronic chf exacerbation in setting of severe (AVR 2012) * deconditioning/obesity Plan -f/u cardiology/ECHO -dc solumerdol, begin prednisone taper 40mgx3, 30x3, 20x3, 10x3, then stop -monitor finger sticks -cont eliquis -5 day course of zithromax -rate control -TRC/Nebs -Incentive spirometry -PT eval - pt amenable to rehab - please have case management discuss options with him and DVT prophylaxis at all times (started on Eliquis)
[2017-10-25 14:35] VITALS: BP 140/72
--- NOTE | 2017-10-25 14:40 | Discharge Summary ---
Visit Information Visit Dates Admission Date: 10/21/17 Discharge Date: 10/26/2017 Hospital Course Course Attending Physician: Vicente COLES,Tru Pedroza Primary Care Physician: Yoav COLES,Yaw Bojorquez Hospital Course: This is a 86 yo male with PMH of COPD on 3L O2, HFpEF, HTN, morbid obesity, severe s/p AVR in 2012, Afib, who come in for CC of SOB. He stated that he has noted a progressively worsening cough now with copious productive sputum as well. He increased his O2 to 3.5L but found no relief. He denies any fever, chills, night sweats, chest pain, palpitations, nausea, vomiting or diarrhea. He endorsed, SOB with SAWANT, cough with productive sputum and weakness/fatigue. EMS noted rhonchi and wheezing throughout and was given 125 solumedrol and 2g Mag and initially placed on 45% venti mask w/ sat 98%. When he stood for urinal he desatted to 68% with subsequent recovery of sats but tachypnea of 33. VITALS: 97.9, 96-124, 20 11/05/2027, 163/77, 99% on 6 L O2 PHYSICAL EXAM: HEENT: Pupils equal and reactive. EOMI. Has keratotic lesions on scalp Cardiovascular: irregularly irregular. tachycardic. 2/6 Murmur Skin: LLE in bandage. Bandage clean to inspection Respiratory: He lungs sound incredible diminished. no wheezing appreciated. but + rhonchi. GI: BSX4, No tenderness on palpation. EXT: 2+ edema in bilat LE. See skin. He was admitted to telemetry floor and treated for these medical conditions: 1. Acute hypoxemic hypercarbic respiratory failure Secondary to COPD exacerbation and heart failure; Patient has worsening productive cough, shortness of breath and hypoxia with increase in her oxygen requirement, and PCO2 level of 54 on ABGs. Patient also has a history of severe aortic stenosis status post valve replacement in 2012, echocardiogram at that time showed ejection fraction of 55%. Chest x-ray shows cardiomegaly with venous congestion and chronic pulmonary hypertension. Leukocytosis today. ACS was ruled out by serial EKG and TN. Patient was put on IV Solu-Medrol and TIBC which was changed to prednisone orally eventually. Patient was also initially put on IV Lasix a couple of days which was changed to his home medication dosage of Lasix. He continued to improve and his O2 requirement returned to his baseline. Per PT evaluation he needed rehabilitation for regaining strength. 2. Atrial fibrillation (status post ablation); Per the patient he is not on any anticoagulation as he was reverted back to sinus rhythm after ablation and he did not require any anticoagulation. Patient currently has a JACOBO VASC score of 4. current afib is most likely in setting of COPD exacerbation but we will start AC. per cardiology we started Eliquise 5mg BID for anticoagulation. 3. Chronic anemia; H&H stable during hospitalization 4. Chronic left lower extremity wounds; [place] is following with Dr. Padilla in an outpatient setting for venous statis in outpatient setting. Wound consult placed with recommendations: Continue his BLE with an estimated needs Xeroform gauze and Profore compression wraps weekly electrocardiogram at wound care center. Allergies: Coded Allergies: lisinopril (COUGHING 10/21/17) Pertinent Lab Results: PATIENT: HERLINDA LANCE PRESENT AGE: 86 PATIENT ACCOUNT NO: [id number] : [birth year] LOCATION: [facility] ORDERING PHYSICIAN: Lawrence Larry MD SERVICE DATE: 10/21/172846 EXAM TYPE: RAD - XRY-PORTABLE CHEST XRAY EXAMINATION: XR PORTABLE CHEST CLINICAL INFORMATION: Shortness of breath. COMPARISON: 02/17/2017 TECHNIQUE: Portable frontal view of the chest was obtained. FINDINGS: Large body habitus. Again noted is a large cardiac silhouette and congested appearance of central pulmonary vessels without interstitial edema, focal consolidation or pleural effusion. The replaced aortic valve is poorly visualized. Sternotomy wires are intact. Atherosclerotic calcification of the aorta. No acute osseous findings. IMPRESSION: - Cardiomegaly and chronic pulmonary venous hypertension without edema. - No acute cardiopulmonary abnormality compared to 02/17/2017. DICTATED BY: Bacilio Conklin MD DATE/TIME DICTATED:10/21/171635 WIDE LOAD ESCORT:JOHNATHAN DATE/TIME TRANSCRIBED:10/21/17 / 1636 CONFIDENTIAL, DO NOT COPY WITHOUT APPROPRIATE AUTHORIZATION. <Electronically signed in Other Vendor System> SIGNED BY: Bacilio Conklin MD 10/21/17 5346 Disposition Summary Disposition Principal Diagnosis: CHF exacerbation COPD exacerbation Additional Diagnosis: Hypertension, chronic venous stasis Discharge Disposition: SNF Discharge Instructions General Discharge Information Code Status: Full Code Patient's Diet: heart healthy Patient's Activity: as tolerated Follow-Up Instructions/Appts: -Please follow-up with your primary care provider within 7 days after discharge. -Please follow-up with your relay mechanic 7 days after discharge -please follow up with wound care center in outpatient setting 7 days after discharge. -We have made changes to your home medications, please read the instructions carefully. -Please come back to the hospital if your symptoms got worse. Medications at Discharge Discharge Medications: Continue taking these medications: Aspirin (Ecotrin*) 81 MG TABLET.DR 1 Tablet ORAL Every other day Comments: Last Taken:10/25/17 Time:9:18A.M Furosemide (Furosemide) 40 MG TABLET 2 Tablet ORAL Every Morning Qty = 180 Comments: Last Taken:NOT GIVEN THIS ADMISSION Time: Tiotropium Garnett (Spiriva) 18 MCG CAP.W.DEV 1 Capsule Inhale through mouth DAILY Qty = 90 Comments: NOT GIVEN THIS ADMISSION Losartan Potassium (Losartan Potassium) 50 MG TABLET 1 Tablet ORAL DAILY Qty = 90 Comments: Last Taken:10/26/17 Time:9:58A.M Calcitriol (Calcitriol) 0.25 MCG CAPSULE 1 Capsule ORAL DAILY Qty = 90 Comments: NOT GIVEN THIS ADMISSION Clotrimazole/Betamethasone Dip (Clotrimazole-Betamethasone Crm) 1 %-0.05 % CREAM..G. 1 Application On the skin As Directed Qty = 270 Instructions: apply to affected area(s) Comments: NOT GIVEN THIS ADMISSION HAD NYASTATIN POWER 10/26/17 1000 Metoprolol Tartrate (Metoprolol Tartrate) 25 MG TABLET 0.5 Tablet ORAL TWICE DAILY Qty = 90 Comments: Last Taken:10/26/17 Time:9:58A.M Potassium Chloride (Potassium Chloride) 20 MEQ TAB.ER.PRT 1 Tablet ORAL DAILY Qty = 90 Comments: NOT GIVEN THIS ADMISSION Omeprazole (Omeprazole) 40 MG CAPSULE.DR 1 Capsule ORAL DAILY Qty = 90 Comments: Last Taken:10/26/17 Time:5:48A.M Denosumab (Prolia) 60 MG/ML SYRINGE 60 Milligram INJECTABLE Q6M Qty = 1 Comments: NOT GIVEN THIS ADMISSION Albuterol Sulfate (Proair Hfa) 90 MCG HFA.AER.AD 2 Puff Inhale through mouth 4XDAILY Qty = 34 Comments: NOT GIVEN THIS ADMISSION Mometasone/Formoterol (Dulera 200 Mcg/5 Mcg Inhaler) 200 MCG-5 MCG/ACTUATION HFA.AER.AD 2 Puff Inhale through mouth TWICE DAILY Comments: NOT GIVEN THIS ADMISSION Cholecalciferol (Vitamin D3) (Vitamin D3) 50,000 UNIT CAPSULE 1 Capsule ORAL EVERY WEDNESDAY Comments: NOT GIVEN THIS ADMISSION Multivit-Min/FA/Lycopen/Lutein (Centrum Silver Men Tablet) 300 MCG-600 MCG-300 MCG TABLET 1 Tablet ORAL DAILY Comments: Last Taken: Time:NOT GIVEN IN HOSPITAL. HAD MVI @9:58A.N 10/26/17 Polycarbophil (Fiber) 625 MG TABLET 1 Tablet ORAL Every night Comments: Last Taken:10/26/17 Time:9:58A.M Calcium (Elemental-Fr Calcarb) (Calcium) 600 MG CALCIUM (1,500 MG) TABLET 2 Tablet ORAL Every night Comments: Last Taken:NOT GIVEN THIS ADMISSION Time: Time: Start taking the following new medications: Ferrous Sulfate (Ferrous Sulfate) 325 MG (65 MG IRON) TABLET. 325 Milligram ORAL TWICE DAILY Qty = 60 No Refills Comments: Last Taken:10/26/17 Time:9:58A.M Apixaban (Eliquis) 5 MG TABLET 5 Milligram ORAL TWICE DAILY Qty = 60 No Refills Comments: Last Taken:10/26/17 Time:9:58A.M Nystatin (Nystatin) 100,000 UNIT/GRAM CREAM..G. 1 Application On the skin THREE TIMES DAILY Qty = 1 No Refills Instructions: apply to affected areas Comments: Last Taken:10/26/17 Time:9:58A.M Guaifenesin (Guaifenesin ER) 600 MG TAB.ER.12H 600 Milligram ORAL EVERY 12 HOURS Qty = 10 No Refills Comments: Last Taken:10/26/17 Time:9:58A.M Prednisone (Prednisone) 10 MG TABLET 0 ORAL TITRATE Qty = 22 No Refills Instructions: Please take: 4 pills on 10/27/17 3 pills on 10/28 & 10/29 & 10/30 2 pills on 10/31 & 11/01 & 11/02 1 pill on 11/03 & 11/04 & 11/05 Comments: Last Taken:10/26/17 Time:9:58A.M Please take: 4 pills on 10/27/17 3 pills on 10/28 & 10/29 & 10/30 2 pills on 10/31 & 11/01 & 11/02 1 pill on 11/03 & 11/04 & 11/05 Copies To: Yoav COLES,Yaw Bojorquez; Billie COLES,Tony Jiang; Guillermina COLES,Cody
--- NOTE | 2017-10-25 15:36 | PN- Cardiology ---
Subjective Subjective: Still complains of a cough but is having difficulty bringing up sputum. Objective Vital Signs and I&Os Vital Signs Date Time Temp Pulse Resp B/P B/P Pulse O2 O2 Flow FiO2 Mean Ox Delivery Rate 10/25 1435 98.2 85 20 140/72 94 Nasal 3.0L Cannula 10/25 1309 Nasal 4.0L Cannula 10/25 0918 124/74 10/25 0918 124/74 10/25 0815 93 Nasal 4.0L Cannula 10/25 0803 96 Nasal 3.0L Cannula 10/25 0714 97.9 85 20 116/62 97 Nasal Cannula 10/25 0000 Nasal 4.0L Cannula 10/24 2135 98.6 100 20 118/66 95 10/24 2124 106 112/70 10/24 1934 98.2 87 24 150/50 94 10/24 1848 93 Nasal 4.0L Cannula 10/24 1611 94 Nasal 4.0L Cannula Intake & Output 10/25 1600 10/25 0800 10/25 0000 10/24 1600 10/24 0800 10/24 0000 Intake Total 400 200 200 650 280 320 Output Total 700 450 450 800 700 100 Balance -300 -250 -250 -150 -420 220 Intake, IV 250 Intake, Oral 400 200 200 400 280 320 Output, Urine 700 450 450 800 700 100 Physical Exam: General: no apparent distress. Alert. On nasal cannula Eyes: No obvious scleral icterus. HEENT: No jugular venous distention or abnormal jugular venous pulsations. Cardiovascular: Normal intensity S1/S2. Irregular; 3/6 systolic murmur Respiratory: mildly decreased air entry Abdomen: Soft, nontender with no guarding or rebound tenderness. Musculoskeletal: bilateral lower extremity wrappings noted Skin: warm Neurologic: No gross focal deficits noted. Current Medications: Current Medications Sig/Migue Start time Last Medication Dose Route Stop Time Status Admin Acetaminophen 650 MG Q6P PRN 10/21 2115 AC 10/22 PO 0552 Albuterol Sulfate 3 ML BID 10/22 2199 AC 10/25 INH 0813 Apixaban 5 MG BID 10/22 1301 AC 10/25 PO 0918 Aspirin Buffered 81 MG Q48 10/21 2300 AC 10/25 PO 0918 Azithromycin 250 MG DAILY 10/25 1047 DC 10/25 PO 10/29 1001 1128 Azithromycin 500 MG DAILY 10/21 2199 DC 10/24 Dextrose/Water 250 ML IV 0855 Ferrous Sulfate 325 MG BID 10/23 1224 AC 10/25 PO 0918 Furosemide 40 MG DAILY 10/26 1000 AC IV Furosemide 40 MG 0700,1600 10/23 1600 DC 10/25 IV 0609 Losartan Potassium 50 MG DAILY 10/22 1000 AC 10/25 PO 0918 Methylprednisolone 40 MG Q12 10/23 2200 DC 10/24 IV 10/25 0800 2124 Metoprolol Tartrate 12.5 MG BID 10/21 2300 AC 10/25 PO 0918 Multivitamins 1 TAB DAILY 10/22 1000 AC 10/25 PO 0918 Nystatin 1 FRANCA TID 10/21 2200 AC 10/25 TOP 0919 Omeprazole 40 MG DAILY AC 10/22 0700 AC 10/25 PO 0609 Oxycodone/ 2 TAB Q6P PRN 10/21 2114 AC 10/25 Acetaminophen PO 0610 Polycarbophil 625 MG DAILY 10/22 1000 AC 10/25 PO 0917 Prednisone 40 MG DAILY 10/25 1000 AC 10/25 PO 0919 Results Last 48 Hrs of Labs/Mics: Laboratory Tests 10/25/17 0700: Anion Gap 15, Estimated GFR 52 L, BUN/Creatinine Ratio 46.9 H, CBC w Diff MAN DIFF ORDERED, RBC 3.72 L, MCV 91.8, MCH 29.2, RDW 17.9 H, MPV 8.0, Gran % 90.5 H, Lymphocytes % 3.8 L, Monocytes % 5.6, Eosinophils % 0, Basophils % 0.1, Absolute Granulocytes 9.8 H, Absolute Lymphocytes 0.4 L, Absolute Monocytes 0.6, Absolute Eosinophils 0, Absolute Basophils 0, Platelet Estimate VERIFIED BY SMEAR, Polychromasia 1+, Poikilocytosis 1+, Basophilic Stippling 1+, Anisocytosis 1+, Ovalocytes 1+, Stomatocytes 1+, PUBS MCHC 31.8 L 10/24/17 0628: Anion Gap 12, Estimated GFR 44 L, BUN/Creatinine Ratio 41.3 H, CBC w Diff NO MAN DIFF REQ, RBC 3.49 L, MCV 92.6, MCH 29.4, RDW 18.1 H, MPV 8.0, Gran % 92.0 H, Lymphocytes % 3.7 L, Monocytes % 4.3, Eosinophils % 0, Basophils % 0, Absolute Granulocytes 10.5 H, Absolute Lymphocytes 0.4 L, Absolute Monocytes 0.5, Absolute Eosinophils 0, Absolute Basophils 0, PUBS MCHC 31.8 L Recent Imaging Studies: Telemetry tracings were personally reviewed showed atrial fibrillation with some tachycardia burst but overall grossly controlled ventricular response rate Echocardiogram which has not crossed into N-Trig shows technically difficult study with grossly preserved left ventricular ejection fraction and likely bioprosthetic aortic valve with severe aortic stenosis (mean gradient reported as 53 millimeters of mercury) with pulmonary hypertension Assessment/Plan Assessment/Plan 1. Shortness of breath; likely multifactorial 2. COPD on home oxygen 3. History of bio AVR in 2012 with Maze procedure and appendage ligation now with recurrent atrial fibrillation started on Eliquis 4. 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 Acute on chronic heart failure with preserved ejection fraction 6. Sleep apnea 7. Pulmonary HTN 8. Known history of venous insufficiency Overall heart rate appears reasonably well controlled on the current regimen. Hemoglobin appears grossly stable on the Eliquis. At this time can likely transition back to his baseline oral Lasix regimen with plan for increase of the baseline dose as needed. The transthoracic echocardiogram which has not populated into N-Trig showed technically difficult study with grossly preserved left ventricular ejection fraction and likely bioprosthetic aortic valve with severe aortic stenosis (mean gradient reported as 53 millimeters of mercury) with pulmonary hypertension. This may require further evaluation in the future although the patient would be at elevated risk for transesophageal echocardiogram and certainly elevated risk for repeat valve intervention. Continue on the anticoagulation and will plan for outpatient repeat transthoracic echocardiogram for additional evaluation of his valve. Bobby Benavidez MD [facility] Continue telemetry? No
[2017-10-25 22:15] VITALS: BP 120/70
[2017-10-26 07:39] VITALS: BP 130/60
--- NOTE | 2017-10-26 08:44 | PN- Housestaff ---
Gerson Corbett MD,Ami 10/26/17 0844: Subjective Follow-up For: Acute hypoxemic hypercarbic respiratory failure likely 2/2 COPD exacerbation and heart failure Atrial fibrillation (status post ablation) Subjective: Patient visited today, was sitting at the bedside comfortably in no acute distress, was alert and oriented. Reported resolved breathing, and relative improvement in cough and sputum. No fever or chills, no palpitation, no chest pain, no other events. With stabilization of the condition, patient was planned to be discharged today. Review of Systems Constitutional: Reports: see HPI. Objective Last 24 Hrs of Vital Signs/I&O Vital Signs Date Time Temp Pulse Resp B/P B/P Pulse O2 O2 Flow FiO2 Mean Ox Delivery Rate 10/26 1520 97.9 85 20 130/60 10/26 1055 95 Nasal 3.0L Cannula 10/26 0955 130/60 10/26 0955 85 130/60 10/26 0800 95 Nasal 3.0L Cannula Intake & Output 10/27 0800 10/27 0000 10/26 1600 Intake Total 480 Output Total Balance 480 Intake, Oral 480 Number 1 Bowel Movements Physical Exam General Appearance: Alert, Oriented X3, Cooperative, No Acute Distress Skin: Bilateral chronic skin lesions. Skin Temp/Moisture Exam: Warm/Dry Sepsis Skin Exam (color): Normal for Ethnicity HEENT: Atraumatic, EOMI, Mucous Membr. moist/pink Cardiovascular: Normal S1, Normal S2, irreg irreg Lungs: bilateral crackels Abdomen: Soft, No Tenderness Neurological: Normal Speech Extremities: as noted above Current Medications: Current Medications Sig/Migue Start time Last Medication Dose Route Stop Time Status Admin Acetaminophen 650 MG Q6P PRN 10/215 DCD 10/22 PO 0552 Albuterol Sulfate 3 ML BID 10/22 2200 DCD 10/26 INH 1052 Apixaban 5 MG BID 10/22 1301 DCD 10/26 PO 0955 Aspirin Buffered 81 MG Q48 10/21 2300 DCD 10/25 PO 0918 Ferrous Sulfate 325 MG BID 10/23 1224 DCD 10/26 PO 0955 Furosemide 80 MG DAILY 10/26 1000 DCD 10/26 PO 0955 Guaifenesin 600 MG Q12 10/25 2200 DCD 10/26 PO 0955 Losartan Potassium 50 MG DAILY 10/22 1000 DCD 10/26 PO 0955 Metoprolol Tartrate 12.5 MG BID 10/21 2300 DCD 10/26 PO 0955 Multivitamins 1 TAB DAILY 10/22 1000 DCD 10/26 PO 0955 Nystatin 1 FRANCA TID 10/21 2200 DCD 10/26 TOP 0958 Omeprazole 40 MG DAILY AC 10/22 0700 DCD 10/26 PO 0548 Oxycodone/ 2 TAB Q6P PRN 10/21 2115 DCD 10/26 Acetaminophen PO 0706 Polycarbophil 625 MG DAILY 10/22 1000 DCD 10/26 PO 0955 Prednisone 40 MG DAILY 10/25 1000 DCD 10/26 PO 0955 Assessment/Plan Assessment: Mr. Moyer is a 76-year-old obese gentleman presented with shortness of breath and productive cough for the past 4 days. PMH: HTN, osteoporosis, severe s/p AVR (2012), AF s/p ablation(2012), ELIZ ( noncompliant with CPAP), COPD on 3 L of oxygen at home and HFpEF, recent finished prednisone taper A/P; 1. Acute hypoxemic hypercarbic respiratory failure Secondary to COPD exacerbation and heart failure; Patient has worsening productive cough, shortness of breath and hypoxia with increase in her oxygen requirement, and PCO2 level of 54 on ABGs. Patient also has a history of severe aortic stenosis status post valve replacement in 2012, echocardiogram at that time showed ejection fraction of 55%. Patient currently has JVD on examination and a ProBNP Level of 9460. Chest x-ray shows cardiomegaly with venous congestion and chronic pulmonary hypertension. Leukocytosis today. ACS was ruled out by serial EKG and TN. - patient was planned to be dischaged today - taper PO prednisone will be schedualed - continue azithromycin PO - Continue Supplemental oxygen at baseline - [facility] nebs - po Lasix - Continue home medications. 2. Atrial fibrillation (status post ablation); Per the patient he is not on any anticoagulation as he was reverted back to sinus rhythm after ablation and he did not require any anticoagulation. Patient currently has a JACOBO VASC score of 4. current afib is most likely in setting of COPD exacerbation but we will start AC. relatively controlled - Continue metoprolol - Eliquise 5mg BID for anticoag - follow Cardiology - Follow-up echocardiogram 3. Hypernatremia; acute kidney injury: Creatinine 1.5 today. - Will repeat labs in a.m. 4. Chronic anemia; - H&H 10.9 - Iron low, folate and B12 normal. - continue ferrous sulfate 5. Hypertension, osteoporosis, obstructive sleep apnea; - Continue home medications and CPAP. 6. Chronic left lower extremity wounds; - Wound consult DVT prophylaxis; subcutaneous Lovenox Patient is full code heart healthy diet Problem List: 1. Acute and chronic respiratory failure with hypoxia 2. Atrial fibrillation 3. COPD exacerbation Pain Ratin Pain Location: none Pain Goal: Pain 4 or less Pain Plan: n/a Tomorrow's Labs & Rationales: cbc bep Maribeth Zhangdeidra 10/26/17 1339: Attending MD Review Statement Attending Statement Attending MD Statement: examined this patient, discuss w/resident/PA/PERSONAL INJURY LAW SPECIALIST, agreed w/resident/PA/PERSONAL INJURY LAW SPECIALIST, reviewed EMR data (avail), discussed with nursing, discussed with case mgmt Attending Assessment/Plan: appreciated cardiology input. cont on po lasix and po rednisone. d/w pt the care plan. possible dc to [facility] today. see dc summary for more details.
[2017-10-26] MEDS ORDERED: NYSTATIN15 G1 TOP (08:56)
[2017-10-26] MEDS ORDERED: ELIQUIS5 M1 PO (08:56)
[2017-10-26] MEDS ORDERED: FERROUS SULFAT325 M2 PO (08:56)
--- NOTE | 2017-10-26 08:57 | Patient Discharge Instructions ---
Discharge Instructions General Discharge Information You were seen/treated for: shortness of breath CHF exacerbation Special Instructions: -Please follow-up with your primary care provider within 7 days after discharge. -Please follow-up with your on line csr 7 days after discharge -please follow up with wound care center in outpatient setting 7 days after discharge. -We have made changes to your home medications, please read the instructions carefully. -Please come back to the hospital if your symptoms got worse. Diet Recommended Diet: Heart Healthy Activity Full Activity/No Limits: Yes (as tolerated) Acute Coronary Syndrome Inclusion Criteria At DC or during hospital stay patient has or had the following: ACS DIAGNOSIS No Discharge Core Measures Meds if any: Prescribed or Continued at Discharge Meds if any: NOT Prescribed or Continued at Discharge Congestive Heart Failure Inclusion Criteria At DC or during hospital stay patient has or had the following: CHF DIAGNOSIS Yes Discharge Core Measures Meds if any: Prescribed or Continued at Discharge Meds if any: NOT Prescribed or Continued at Discharge Cerebrovascular accident Inclusion Criteria At DC or during hospital stay patient has or had the following: CVA/TIA Diagnosis No Discharge Core Measures Meds if any: Prescribed or Continued at Discharge Meds if any: NOT Prescribed or Continued at Discharge Venous thromboembolism Inclusion Criteria VTE Diagnosis No VTE Type NONE VTE Confirmed by (Test) NONE Discharge Core Measures - Per Current guidelines, there needs to be overlap - treatment for the first 5 days of Warfarin therapy. - If discharged on Warfarin prior to 5 days of - overlap therapy, the patient will need to be - assessed for post discharge needs including - *Post discharge parental anticoagulation - *Warfarin and/or parental anticoagulation education - *Follow up date to check INR post discharge At least 5 days overlap therapy as Inpatient No Meds if any: Prescribed or Continued at Discharge Note: Overlap Therapy is Warfarin and Anticoagulant Meds if any: NOT Prescribed or Continued at Discharge
--- NOTE | 2017-10-26 10:30 | PN- Cardiology ---
Subjective Subjective: Patient still complains of shortness of breath along with a cough productive of yellow sputum. He has difficulty carrying on a conversation due to shortness of breath. Review of Systems: Eyes no blurred or double vision Ears no deafness or ringing Nose and throat no recurrent sinusitis Lungs per history of present illness Heart per history of present illness Abdomen no nausea vomiting Musculoskeletal occasional muscle and joint pains Psych no anxiety or depression Neuro without recurrent headache or seizures Endocrine no heat or cold intolerance Objective Vital Signs and I&Os Vital Signs Date Time Temp Pulse Resp B/P B/P Pulse O2 O2 Flow FiO2 Mean Ox Delivery Rate 10/26 0955 130/60 10/26 0955 85 130/60 10/26 0739 97.9 85 20 130/60 96 Nasal Cannula 10/26 0400 Nasal 3.0L Cannula 10/26 0000 Nasal 2.0L Cannula 10/25 2244 105 120/70 10/25 2215 98.6 105 20 120/70 94 10/25 1845 91 Nasal 3.0L Cannula 10/25 1600 Nasal 3.0L Cannula 10/25 1435 98.2 85 20 140/72 94 Nasal 3.0L Cannula 10/25 1309 Nasal 4.0L Cannula Intake & Output 10/26 1600 10/26 0800 10/26 0000 10/25 1600 10/25 0800 10/25 0000 Intake Total 150 200 400 200 200 Output Total 450 450 700 450 450 Balance -300 -250 -300 -250 -250 Intake, IV 0 Intake, Oral 150 200 400 200 200 Number 0 Bowel Movements Output, Urine 450 450 700 450 450 Physical Exam: Patient is a well-developed obese male appearing in mild respiratory distress HEENT is unremarkable Neck is supple there is no JVD Lungs diffuse rhonchi bilaterally Heart irregular rhythm S1 and S2 are normal no murmurs gallops or rubs Abdomen bowel sounds positive Extremities both legs are wrapped Current Medications: Current Medications Sig/Migue Start time Last Medication Dose Route Stop Time Status Admin Acetaminophen 650 MG Q6P PRN 10/21 211 AC 10/22 PO 0552 Albuterol Sulfate 3 ML BID 10/22 2200 AC 10/25 INH 1845 Apixaban 5 MG BID 10/22 1301 AC 10/26 PO 0955 Aspirin Buffered 81 MG Q48 10/21 2300 AC 10/25 PO 0918 Azithromycin 250 MG DAILY 10/25 1047 DC 10/25 PO 10/29 1001 1128 Azithromycin 500 MG DAILY 10/210 DC 10/24 Dextrose/Water 250 ML IV 0855 Ferrous Sulfate 325 MG BID 10/23 1224 AC 10/26 PO 0955 Furosemide 40 MG DAILY 10/26 1000 CAN IV Furosemide 80 MG DAILY 10/26 1000 AC 10/26 PO 0955 Furosemide 40 MG 0700,1600 10/23 1600 DC 10/25 IV 0609 Guaifenesin 600 MG Q12 10/250 AC 10/26 PO 0955 Losartan Potassium 50 MG DAILY 10/22 1000 AC 10/26 PO 0955 Metoprolol Tartrate 12.5 MG BID 10/21 2300 AC 10/26 PO 0955 Multivitamins 1 TAB DAILY 10/22 1000 AC 10/26 PO 0955 Nystatin 1 FRANCA TID 10/21 2199 AC 10/26 TOP 0958 Omeprazole 40 MG DAILY AC 10/22 0700 AC 10/26 PO 0548 Oxycodone/ 2 TAB Q6P PRN 10/21 2115 AC 10/26 Acetaminophen PO 0706 Polycarbophil 625 MG DAILY 10/22 1000 AC 10/26 PO 0955 Prednisone 40 MG DAILY 10/25 1000 AC 10/26 PO 0955 Results Last 48 Hrs of Labs/Mics: Laboratory Tests 10/26/17 0650: Anion Gap 10, Estimated GFR > 60, BUN/Creatinine Ratio 56.7 H 10/25/17 0700: Anion Gap 15, Estimated GFR 52 L, BUN/Creatinine Ratio 46.9 H, CBC w Diff MAN DIFF ORDERED, RBC 3.72 L, MCV 91.8, MCH 29.2, RDW 17.9 H, MPV 8.0, Gran % 90.5 H, Lymphocytes % 3.8 L, Monocytes % 5.6, Eosinophils % 0, Basophils % 0.1, Absolute Granulocytes 9.8 H, Absolute Lymphocytes 0.4 L, Absolute Monocytes 0.6, Absolute Eosinophils 0, Absolute Basophils 0, Platelet Estimate VERIFIED BY SMEAR, Polychromasia 1+, Poikilocytosis 1+, Basophilic Stippling 1+, Anisocytosis 1+, Ovalocytes 1+, Stomatocytes 1+, PUBS MCHC 31.8 L Telemetry personally reviewed atrial fibrillation with intermittent rapid ventricular response Assessment/Plan Assessment/Plan 1. Shortness of breath; likely multifactorial 2. COPD on home oxygen 3. History of bio AVR in 2012 with Maze procedure and appendage ligation now with recurrent atrial fibrillation started on Eliquis 4. 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 Acute on chronic heart failure with preserved ejection fraction 6. Sleep apnea 7. Pulmonary HTN 8. Known history of venous insufficiency Recommendations 1. I would continue his current medications including Eliquis for stroke prevention 2. Complete echocardiogram report is still pending. It has not been populated. 3. Continue aggressive pulmonary management 4. Will plan repeat echocardiogram to further assess his aortic valve as an outpatient 5. Continue telemetry Continue telemetry? Yes
[2017-10-26] MEDS ORDERED: GUAIFENESIN ER600 MG PO (10:53)
[2017-10-26] MEDS ORDERED: PREDNISONE10 M2 PO (11:17)
--- NOTE | 2017-10-26 11:33 | PN- Pulmonary ---
Subjective HPI/Critical Care Issues: Patient seen and examined this morning. He is anticipating dc. Objective Current Medications: Current Medications Sig/Migue Start time Last Medication Dose Route Stop Time Status Admin Acetaminophen 650 MG Q6P PRN 10/21 2114 AC 10/22 PO 0552 Albuterol Sulfate 3 ML BID 10/22 2200 AC 10/26 INH 1052 Apixaban 5 MG BID 10/22 1301 AC 10/26 PO 0955 Aspirin Buffered 81 MG Q48 10/21 2300 AC 10/25 PO 0918 Azithromycin 250 MG DAILY 10/25 1047 DC 10/25 PO 10/29 1001 1128 Ferrous Sulfate 325 MG BID 10/23 1224 AC 10/26 PO 0955 Furosemide 40 MG DAILY 10/26 1000 CAN IV Furosemide 80 MG DAILY 10/26 1000 AC 10/26 PO 0955 Furosemide 40 MG 0700,1600 10/23 1600 DC 10/25 IV 0609 Guaifenesin 600 MG Q12 10/25 2200 AC 10/26 PO 0955 Losartan Potassium 50 MG DAILY 10/22 1000 AC 10/26 PO 0955 Metoprolol Tartrate 12.5 MG BID 10/21 2300 AC 10/26 PO 0955 Multivitamins 1 TAB DAILY 10/22 1000 AC 10/26 PO 0955 Nystatin 1 FRANCA TID 10/21 2200 AC 10/26 TOP 0958 Omeprazole 40 MG DAILY AC 10/22 0700 AC 10/26 PO 0548 Oxycodone/ 2 TAB Q6P PRN 10/215 AC 10/26 Acetaminophen PO 0706 Polycarbophil 625 MG DAILY 10/22 1000 AC 10/26 PO 0955 Prednisone 40 MG DAILY 10/25 1000 AC 10/26 PO 0955 Vital Signs & I&O Last 24 Hrs of Vitals and I&O: Vital Signs Date Time Temp Pulse Resp B/P B/P Pulse O2 O2 Flow FiO2 Mean Ox Delivery Rate 10/26 1055 95 Nasal 3.0L Cannula 10/26 0955 130/60 10/26 0955 85 130/60 10/26 0739 97.9 85 20 130/60 96 Nasal Cannula 10/26 0400 Nasal 3.0L Cannula 10/26 0000 Nasal 2.0L Cannula 10/25 2244 105 120/70 10/25 2215 98.6 105 20 120/70 94 10/25 1845 91 Nasal 3.0L Cannula 10/25 1600 Nasal 3.0L Cannula 10/25 1435 98.2 85 20 140/72 94 Nasal 3.0L Cannula 10/25 1309 Nasal 4.0L Cannula Intake & Output 10/26 1600 10/26 0800 10/26 0000 Intake Total 150 200 Output Total 450 450 Balance -300 -250 Intake, IV 0 Intake, Oral 150 200 Number 0 Bowel Movements Output, Urine 450 450 Exam Other Physical Findings: gen awake and alert, mild conversational dyspnea heent ncat cvs s1, s2, irregular lungs diminished bs bases given body habitus abd obese ext bandages are present Results Last 24 Hrs of Lab Results: Laboratory Tests 10/26/17 0650: Anion Gap 10, Estimated GFR > 60, BUN/Creatinine Ratio 56.7 H Impression/Plan Impression/Plan Impression/Plan: Impression 86 year old man * Dyspnea - likely acute exacerbation of COPD accompanied by a possible tracheobronchitis and also underlying acute on chronic chf exacerbation in setting of severe (AVR 2012) * deconditioning/obesity Plan -f/u cardiology -prednisone taper 40mgx3, 30x3, 20x3, 10x3, then stop -monitor finger sticks -cont eliquis -5 day course of zithromax -rate control -TRC/Nebs -Incentive spirometry -awaiting dc to rehab DVT prophylaxis at all times (on Eliquis)
[2017-10-26 14:43] VITALS: BP 156/78
[2017-10-26 15:20] VITALS: BP 130/60
== END 2017-10-26 16:36 | DRG 291 ==
LOC: ERH 15:18 → ERHI 18:33 → 1NO 18:33 → ENRESERV 19:49 → ENTRNSPT 20:44 → EDTRNSPT 20:44 → EDTRNSPTSTS 20:45 → 1NO 21:00 → CMPTRNSPT 21:16 → 1NO 10-22 08:19 → ENPENDDIS 10-26 14:22 → 1NO 10-26 16:36
PROVIDERS: Internal Medicine; Radiology Vascular & Interventional Radiology; Student in an Organized Health Care Education/Training Program
DX: I11.0 Hypertensive heart disease with heart failure (principal); J96.21 Acute and chronic respiratory failure with hypoxia; I27.20 Pulmonary hypertension, unspecified; E66.01 Morbid (severe) obesity due to excess calories; J44.1 Chronic obstructive pulmonary disease with (acute) exacerbation; Z68.41 Body mass index [BMI] 40.0-44.9, adult; J96.22 Acute and chronic respiratory failure with hypercapnia; Z99.81 Dependence on supplemental oxygen; I50.33 Acute on chronic diastolic (congestive) heart failure; E66.9 Obesity, unspecified; I35.0 Nonrheumatic aortic (valve) stenosis; D64.9 Anemia, unspecified; I87.8 Other specified disorders of veins; Z95.2 Presence of prosthetic heart valve; G47.30 Sleep apnea, unspecified; I48.91 Unspecified atrial fibrillation
CPT/HCPCS: 1NP; 36415; 71045; 82436; 87070; 93005; 93010; 97110-GO; 97116-GO; 97161-GP; 97530-GO; J0456; J1650; J1940; J2920; J7060

== ENCOUNTER 2017-12-15 07:23 | Inpatient (IN) | payer OTHER, MEDICARE ==
[~2017-12-15] VITALS: Ht 175.3 cm; Wt 117.2 kg
[~2017-12-15 07:23] MED LIST changes: +CALCITRIOL0.25 MC1 PO; +CALCIUM600 M3 PO; +CENTRUM SILVER1 EAC4 PO; +CLOTRIMAZOLE-BE15 GM TOP; +DULERA 200 MCG/13 GM INH; +ELIQUIS5 M1 PO; +FERROUS SULFAT325 M2 PO; +FIBER625 MG PO; +FUROSEMIDE40 M1 PO; +GUAIFENESIN ER600 MG PO; +LOSARTAN POTASS50 M1 PO; +NYSTATIN15 G1 TOP; +OMEPRAZOLE40 M1 PO; +POTASSIUM CHLO20 ME2 PO; +PREDNISONE10 M2 PO; +PROAIR HFA8.5 GM INH; +PROLIA60 MG/1 ML INJ; +SPIRIVA18 MCG INH; +VITAMIN D350000 UNIT PO
--- NOTE | 2017-12-15 07:33 | ED DYSPNEA/ASTHMA COMPLAINT ---
History of Present Illness General Chief Complaint: Dyspnea (COPD, CHF, Other) Stated Complaint: BIBA DIFF BREATHING, LOW O2 Source: patient, EMS Exam Limitations: no limitations Vital Signs & Intake/Output Vital Signs & Intake/Output Vital Signs Date Time Temp Pulse Resp B/P B/P Pulse O2 O2 Flow FiO2 Mean Ox Delivery Rate 12/17 0544 101 97 12/17 0430 93 Nasal 5.0L Cannula 12/17 0313 87 96 12/17 0018 93 97 12/17 0000 98 BIPAP 40% 12/164 99 98 12/16 221 97.4 95 20 110/80 98 BIPAP 12/16 2200 98 BIPAP 40% 12/16 2143 104 96 12/16 2137 114 144/84 12/16 1709 112 92 12/16 1618 68 140/80 12/16 1613 96 Nasal 5.0L Cannula 12/16 1553 68 97 12/16 1512 97.6 105 20 140/80 98 12/16 1210 110 98 12/16 1020 132 97 12/16 0902 115 156/72 12/16 0808 97 Nasal 3.5L Cannula 12/16 0807 88 97 12/16 0800 Nasal 3.5L Cannula 12/16 0636 97.8 108 18 130/68 94 BIPAP ED Intake and Output 12/17 0000 12/16 1200 Intake Total 641 120 Output Total 700 800 Balance -59 -680 Intake, IV 281 Intake, Oral 360 120 Output, Urine 700 800 Patient 258 lb Weight Allergies Coded Allergies: lisinopril (COUGHING 10/21/17) Reconcile Medications Albuterol Sulfate (Proair Hfa) 90 MCG HFA.AER.AD 2 PUF INH 4XDAILY COPD ( Reported) Apixaban (Eliquis) 5 MG TABLET 5 MG PO BID heart Aspirin (Ecotrin*) 81 MG TABLET.DR 1 TAB PO EOD HEART/BLOOD (Reported) Calcitriol 0.25 MCG CAPSULE 1 CAP PO DAILY SUPPLEMENT (Reported) Calcium (Elemental-Fr Calcarb) (Calcium) 600 MG CALCIUM (1,500 MG) TABLET 2 TAB PO QPM SUPPLEMENT (Reported) Cholecalciferol (Vitamin D3) (Vitamin D3) 50,000 UNIT CAPSULE 1 CAP PO QWED SUPPLEMENT (Reported) Clotrimazole/Betamethasone Dip (Clotrimazole-Betamethasone Crm) 1 %-0.05 % CREAM..G. 1 FRANCA TOP AD SKIN FOLDS (Reported) apply to affected area(s) Denosumab (Prolia) 60 MG/ML SYRINGE 60 MG INJ Q6M OSTEOPOROSIS (Reported) Diltiazem HCl (Diltiazem 24HR ER) 240 MG CAP.ER.24H 1 CAP PO DAILY heart rate for A.fib (Reported) Ferrous Sulfate 325 MG (65 MG IRON) TABLET.DR 325 MG PO BID iron Furosemide 40 MG TABLET 2 TAB PO QAM DIURETIC (Reported) Guaifenesin (Guaifenesin ER) 600 MG TAB.ER.12H 600 MG PO Q12 cough Losartan Potassium 50 MG TABLET 1 TAB PO DAILY BP (Reported) Mometasone/Formoterol (Dulera 200 Mcg/5 Mcg Inhaler) 200 MCG-5 MCG/ACTUATION HFA.AER.AD 2 PUF INH BID COPD (Reported) Multivit-Min/FA/Lycopen/Lutein (Centrum Silver Men Tablet) 300 MCG-600 MCG-300 MCG TABLET 1 TAB PO DAILY SUPPLEMENT (Reported) Omeprazole 40 MG CAPSULE.DR 1 CAP PO DAILY GI (Reported) Polycarbophil (Fiber) 625 MG TABLET 1 TAB PO QPM GI (Reported) Potassium Chloride 20 MEQ TAB.ER.PRT 1 TAB PO DAILY SUPPLEMENT (Reported) Tiotropium [place] (Spiriva) 18 MCG CAP.W.DEV 1 CAP INH DAILY COPD (Reported) Triage Nurses Notes Reviewed? yes HPI: Patient presents for evaluation of severe and constant dyspnea that began subacutely last night. Patient has a history of congestive heart failure and chronic lower extremity edema. He states he is unable to lie flat secondary to worsening breathing. History is limited due to the patient's severe dyspnea upon presentation. Past History Travel History Traveled to [place] past 21 day No Medical History Any Pertinent Medical History? see below for history Neurological: NONE EENT: NONE Cardiovascular: AFIB, aortic stenosis, hypertension, HFpEF s/p a-fib ablation and KARLO ligation Respiratory: COPD, obstructive sleep apnea Gastrointestinal: POLYP REMOVAL HERNIA REPAIR Hepatic: NONE Renal: NONE Musculoskeletal: osteoporosis Psychiatric: NONE Endocrine: NONE Blood Disorders: NONE Cancer(s): NONE TOBACCO SCRAP SIFTER/Reproductive: NONE History of MRSA: No History of VRE: No History of CDIFF: No Influenza Vaccine: 08/04/17 Surgical History Surgical History: appendectomy, cholecystectomy, hernia repair-ventral, LIPOMA REMOVAL polypectomy Psychosocial History Who do you live with Spouse Services at Home None What is your primary language Slovak Family History Family History, If Any: Relation not specified for: *No pertinent family history Hx Contributory? No Review of Systems Review of Systems Constitutional: Reports: see HPI. EENTM: Reports: no symptoms. Respiratory: Reports: no symptoms. Cardiovascular: Reports: no symptoms. GI: Reports: no symptoms. Genitourinary: Reports: no symptoms. Musculoskeletal: Reports: no symptoms. Skin: Reports: no symptoms. Neurological/Psychological: Reports: no symptoms. Hematologic/Endocrine: Reports: no symptoms. Immunologic/Allergic: Reports: no symptoms. All Other Systems: Reviewed and Negative Physical Exam Physical Exam Respiratory: see below Comments: Gen.: Well-nourished, well-developed, severe respiratory distress. Head: Normocephalic, atraumatic. Eyes: Normal inspection bilaterally Ears: Normal inspection bilaterally Nose: Normal inspection Throat/mouth : Moist mucosa Neck: Supple, full range of motion, no goiter Heart: Regular rate and rhythm Lungs: Decreased air entry bilaterally with basilar rales Chest: Nontender Back: Normal range of motion Abdomen: Soft, nontender, nondistended, normal bowel sounds Extremities: Normal range of motion grossly, equal radial pulses, no cyanosis, bilateral 2+ pitting edema of the lower extremities Neurologic: Cranial nerves grossly intact, speech is clear Skin: warm and dry Psychiatric: Calm, cooperative, no apparent delusions or hallucinations Core Measures ACS in differential dx? Yes CVA/TIA Diagnosis No Sepsis Present: No Sepsis Focused Exam Completed? No Progress Differential Diagnosis: AMI, bronchitis, CHF, COPD, pneumonia, pneumothorax, unstable angina Plan of Care: Orders Procedure Date/time Status CBC WITHOUT DIFFERENTIAL 12/17 0500 Active BASIC ELECTROLYTES PLUS BUN&CR 12/17 0500 Active OXYGEN SETUP (GEN) 12/17 0425 Complete Nothing by Mouth 12/16 D Active [place]agle, Insertion/Removal/Asses 12/16 1432 Active RT: Reevaluation 12/16 1402 Active Turn and Reposition 12/16 1259 Active Skin/Pressure Ulcer Assess (Sk 12/16 1259 Active SWALLOW EVALUATION 12/16 UNK Active Evaluate Swallowing 12/16 UNK Complete RT RE-EVALUATION 12/16 UNK Complete THERAPIST ORDERS 12/16 UNK Complete Nursing RT Care 12/16 UNK Active FingerStick- Glucose 12/16 UNK Active OXYGEN SETUP CHG 12/15 UNK Complete AEROSOL CHG 12/15 UNK Complete OXYGEN 12/15 UNK Complete OXYGEN TRANSPORT 12/15 UNK Complete CONTIN. POS. [facility]. [facility] 12/15 UNK Complete Current Medications Sig/Migue Start time Last Medication Dose Stop Time Status Admin Dextrose/Sodium 1,000 ML Q20H 12/16 1815 AC 12/16 Chloride 1903 (D5W-1/2 Normal Saline 1000ML) Albuterol Sulfate 3 ML EVERY 4 HRS/AWAKE 12/16 1600 AC 12/16 (Proventil) 2128 Nystatin 1 FRANCA TID 12/16 1600 AC 12/16 (Mycostatin) 213 Digoxin 0.25 MG BID 12/16 1347 AC 12/16 (Lanoxin) 12/17 220 213 Diltiazem HCl 240 MG DAILY 12/16 1000 AC 12/16 (Cardizem CD) 0905 Furosemide 80 MG QAM 12/16 1000 AC 12/16 (Lasix) 0905 Potassium Chloride 20 MEQ DAILY 12/16 1000 AC 12/16 (K-Dur) 0905 Tiotropium [place] 1 PUF DAILY 12/16 1000 AC 12/16 (Spiriva) 0905 Polycarbophil 625 MG QPM 12/15 2200 AC 12/16 (FiberCon) 2132 Methylprednisolone 40 MG Q8 12/15 1400 AC 12/17 (Solumedrol) 0535 Aspirin Buffered 81 MG Q48 12/15 1200 AC (Ecotrin) Omeprazole 40 MG DAILY AC 12/15 1158 AC (Prilosec) Apixaban 5 MG BID 12/15 1156 AC 12/16 (Eliquis) 2132 Ceftriaxone Sodium 1,000 MG DAILY 12/15 1047 AC 12/16 (Rocephin) 0905 Azithromycin 500 MG DAILY 12/15 1046 AC 12/16 (Zithromax) 0905 Dextrose/Water 250 ML (D5W) Laboratory Tests 12/16/17 0632: Anion Gap 11, Estimated GFR > 60, BUN/Creatinine Ratio 41.0 H, CBC w Diff NO MAN DIFF REQ, RBC 3.45 L, MCV 95.3 H, MCH 30.7, MCHC 32.2 L, RDW 18.1 H, MPV 8.9, Gran % 93.7 H, Lymphocytes % 5.0 L, Monocytes % 1.3 L, Eosinophils % 0, Basophils % 0, Absolute Granulocytes 9.3 H, Absolute Lymphocytes 0.5 L, Absolute Monocytes 0.1, Absolute Eosinophils 0, Absolute Basophils 0 CXR Impression: PATIENT: HERLINDA LANCE PRESENT AGE: 86 PATIENT ACCOUNT NO: [id number] : [birth year] LOCATION: ER ORDERING PHYSICIAN: Jamil Diaz MD SERVICE DATE: 12/15/17 EXAM TYPE: RAD - XRY-PORTABLE CHEST XRAY EXAMINATION: XR PORTABLE CHEST CLINICAL INFORMATION: Dyspnea COMPARISON: 10/21/2017 TECHNIQUE: Portable frontal view of the chest was obtained. FINDINGS: Median sternotomy wires appear intact. Cardiac leads overlie the chest. Diffuse bronchial wall thickening with increased interstitial markings. Increased hazy right basilar opacity. No pleural effusion or pneumothorax. The cardiomediastinal silhouette is normal in size with a calcified aorta. Degenerative changes of the spine and shoulders. IMPRESSION: Increased bronchial wall thickening with interstitial prominence favors developing edema. Hazy right basilar opacity could represent an alveolar component. Alternatively, a small airways process is possible with superimposed right basilar atelectasis/pneumonia. DICTATED BY: Ousmane Onofre MD DATE/ TIME DICTATED:12/15/17800 SOCIAL WORK INSTRUCTOR:JOHNATHAN DATE/TIME TRANSCRIBED: 12/15/17800 CONFIDENTIAL, DO NOT COPY WITHOUT APPROPRIATE AUTHORIZATION. < Electronically signed in Other Vendor System> SIGNED BY: Kingston COLES, Ousmane 12/15/17804 Initial ED EKG: ATRIAL FIBRILLATION VERSUS A REGULAR SINUS TACHYCARDIA WITH A HEART RATE OF [address] SEGMENT CHANGES ASIDE FROM RATE NO CHANGE COMPARED WITH PRIOR. Comments: 12/15/2017 7:50:00 AM Herlinda is on BiPAP and his chest excursion has improved. Oxygen saturation is 95% on a 50% inspired oxygen. He does seem a little anxious with the BiPAP mask in place but is currently tolerating it. I am considering morphine or perhaps Ativan but I'll continue to watch closely, both medications could potentially suppress respirations. 12/15/2017 9:28:56 AM patient's case discussed with the hospitalist and Lito Benavidez MD. 12/15/2017 9:34:41 AM 7.18/87/123/32/96%, the respiratory therapist will increase volume and rate. Departure Departure Disposition: STILL A PATIENT Condition: Stable Clinical Impression Primary Impression: Pulmonary edema Qualifiers: Chronicity: acute Qualified Code: J81.0 - Acute pulmonary edema Referrals: Yoav COLES,Yaw Bojorquez (PCP/Family) Departure Forms: Customer Survey General Discharge Information Admission Note Spoke With: Julieta COLES,Jessi Bell Documentation of Exam: Documentation of any treatments & extenuating circumstances including Concerns Regarding Discharge (functional status, medication knowledge or non-compliance, living conditions, etc.) that warrant an admission rather than observation: Patient presents in severe respiratory distress secondary to pulmonary edema and hypercarbic respiratory failure. He cannot be treated safely as an outpatient and would likely return in worse clinical condition, including acute respiratory failure and . He requires hospitalization for treatment with BiPAP to support respirations and to enhance, dioxide illumination, IV Lasix, nitroglycerin and monitoring of intake and output to assure negative fluid balance. In addition cardiology consultation should be considered to optimize medical management of pulmonary edema. Pulmonary consultation should be considered given the patient's hypercapnia. Given his advanced age and medical comorbidities I suspect his treatment and recovery will be prolonged and complicated. He will require multiple day hospitalization. Critical Care Note Critical Care Note Critical Care Time: 30-74 min
[2017-12-15 08:00] LABS: ABSOLUTE BASOPHIL COUNT 0.3 /CUMM (0.0-0.2); ABSOLUTE EOSINOPHIL COUNT 0 /CUMM (0.0-0.7); ABSOLUTE GRANULOCYTE CT 10.3 /CUMM (1.4-6.5); ABSOLUTE LYMPH COUNT 2.1 /CUMM (1.2-3.4); ABSOLUTE MONOCYTE COUNT 0.9 /CUMM (0.10-0.60); BASOPHIL % 1.9 % (0.0-2.0); EOSINOPHIL % 0.1 % (0-5); GRANULOCYTE % 76.2 % (42.2-75.2); HEMATOCRIT 37.4 % (42-52); MEAN CORPUSCULAR HGB 30.9 PG (27.0-31.0); MEAN CORPUSCULAR HGB CONC 32.5 G/DL (33.0-37.0); MEAN CORPUSCULAR VOLUME 95.1 FL (80.0-94.0); MEAN PLATELET VOLUME 8.6 FL (7.4-10.4); PLATELET COUNT 206 /CUMM (130-400); RBC DISTRIBUTION WIDTH 17.4 % (11.5-14.5); RED BLOOD CELL CT 3.93 /CUMM (4.70-6.10); WHITE BLOOD CELL COUNT 13.5 /CUMM (4.8-10.8)
--- NOTE | 2017-12-15 08:05 | RADIOLOGY REPORT ---
EXAMINATION: XR PORTABLE CHEST CLINICAL INFORMATION: Dyspnea COMPARISON: 10/21/2017 TECHNIQUE: Portable frontal view of the chest was obtained. FINDINGS: Median sternotomy wires appear intact. Cardiac leads overlie the chest. Diffuse bronchial wall thickening with increased interstitial markings. Increased hazy right basilar opacity. No pleural effusion or pneumothorax. The cardiomediastinal silhouette is normal in size with a calcified aorta. Degenerative changes of the spine and shoulders. IMPRESSION: Increased bronchial wall thickening with interstitial prominence favors developing edema. Hazy right basilar opacity could represent an alveolar component. Alternatively, a small airways process is possible with superimposed right basilar atelectasis/pneumonia.
--- NOTE | 2017-12-15 09:33 | History & Physical ---
Tori COLES,[facility] 12/15/17 0932: General Information and HPI MD Statement: I have seen and personally examined HERLINDA LANCE and documented this H&P. The patient is a 86 year old M who presented with a patient stated chief complaint of [SOB]. Source of Information: patient, old records Exam Limitations: patient's age, hoarseness of voice, sleepy, and SOB on BiPAP History of Present Illness: This is a 86 yo male with extensive PMH including COPD on 3L O2 at home, HFpEF, HTN, morbid obesity, severe s/p AVR in 2012, Afib on eliquis and Cardizem, who come in for CC of SOB. According to the patient his dyspnea started a few days ago, initially was exertional dyspnea however yesterday he noticed severe dyspnea at rest. Excuse inhaler and home oxygen didn't relieve his shortness breath. The patient reported orthopnea and lower extremity edema. He denies chest pain, palpitation, cough, fever or chills. He denies sick contacts, recent URI or recent ravel. Allergies/Medications Allergies: Coded Allergies: lisinopril (COUGHING 10/21/17) Home Med list Albuterol Sulfate (Proair Hfa) 90 MCG HFA.AER.AD 2 PUF INH 4XDAILY COPD ( Reported) Apixaban (Eliquis) 5 MG TABLET 5 MG PO BID heart Aspirin (Ecotrin*) 81 MG TABLET.DR 1 TAB PO EOD HEART/BLOOD (Reported) Calcitriol 0.25 MCG CAPSULE 1 CAP PO DAILY SUPPLEMENT (Reported) Calcium (Elemental-Fr Calcarb) (Calcium) 600 MG CALCIUM (1,500 MG) TABLET 2 TAB PO QPM SUPPLEMENT (Reported) Cholecalciferol (Vitamin D3) (Vitamin D3) 50,000 UNIT CAPSULE 1 CAP PO QWED SUPPLEMENT (Reported) Clotrimazole/Betamethasone Dip (Clotrimazole-Betamethasone Crm) 1 %-0.05 % CREAM..G. 1 FRANCA TOP AD SKIN FOLDS (Reported) apply to affected area(s) Denosumab (Prolia) 60 MG/ML SYRINGE 60 MG INJ Q6M OSTEOPOROSIS (Reported) Diltiazem HCl (Diltiazem 24HR ER) 240 MG CAP.ER.24H 1 CAP PO DAILY heart rate for A.fib (Reported) Ferrous Sulfate 325 MG (65 MG IRON) TABLET.DR 325 MG PO BID iron Furosemide 40 MG TABLET 2 TAB PO QAM DIURETIC (Reported) Guaifenesin (Guaifenesin ER) 600 MG TAB.ER.12H 600 MG PO Q12 cough Losartan Potassium 50 MG TABLET 1 TAB PO DAILY BP (Reported) Mometasone/Formoterol (Dulera 200 Mcg/5 Mcg Inhaler) 200 MCG-5 MCG/ACTUATION HFA.AER.AD 2 PUF INH BID COPD (Reported) Multivit-Min/FA/Lycopen/Lutein (Centrum Silver Men Tablet) 300 MCG-600 MCG-300 MCG TABLET 1 TAB PO DAILY SUPPLEMENT (Reported) Omeprazole 40 MG CAPSULE.DR 1 CAP PO DAILY GI (Reported) Polycarbophil (Fiber) 625 MG TABLET 1 TAB PO QPM GI (Reported) Potassium Chloride 20 MEQ TAB.ER.PRT 1 TAB PO DAILY SUPPLEMENT (Reported) Tiotropium [place] (Spiriva) 18 MCG CAP.W.DEV 1 CAP INH DAILY COPD (Reported) Past History Travel History Traveled to [place] past 21 day No Medical History Neurological: NONE EENT: NONE Cardiovascular: AFIB, aortic stenosis, hypertension, HFpEF s/p a-fib ablation and KARLO ligation Respiratory: COPD, obstructive sleep apnea Gastrointestinal: POLYP REMOVAL HERNIA REPAIR Hepatic: NONE Renal: NONE Musculoskeletal: osteoporosis Psychiatric: NONE Endocrine: NONE Blood Disorders: NONE Cancer(s): NONE 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 spouse Services at Home: None Functional Ability Ambulation: walker Review of Systems Review of Systems Constitutional: Denies: chills, diaphoresis, fever, malaise, weakness, unexplained weight loss. EENTM: Denies: visual changes, hearing changes. Cardiovascular: Reports: orthopena, peripheral edema. Denies: chest pain, palpitations, syncope. Respiratory: Reports: orthopnea, short of breath. Denies: cough, sputum production, stridor, wheezing. GI: Denies: abdominal pain, constipation, diarrhea, nausea, vomiting. Genitourinary: Denies: dysuria. Exam & Diagnostic Data Last 24 Hrs of Vital Signs/I&O Vital Signs Date Time Temp Pulse Resp B/P B/P Pulse O2 O2 Flow FiO2 Mean Ox Delivery Rate 12/15 1127 97.6 118 33 136/66 93 BIPAP 12/15 1110 120 93 12/15 1100 97.8 121 26 138/71 93 BIPAP 60% 12/15 1021 95 BIPAP 60% 12/15 0935 113 94 12/15 0931 97.6 120 26 143/67 97 BIPAP 80% 12/15 0922 97.8 130 31 118/82 12/15 0855 130 97 12/15 0804 96 BIPAP 80% 12/15 0740 128 96 12/15 0737 97.0 122 22 154/82 95 Non 10L ReBreather Intake & Output 12/15 1600 12/15 0800 12/15 0000 Intake Total Output Total 100 Balance -100 Output, Urine 100 Physical Exam General Appearance Alert, Oriented X3, Cooperative, No Acute Distress, Sleepy but arousable Skin No Rashes HEENT Atraumatic, PERRLA, EOMI, Dry lips and oral mucosa mostly 2/2 BiPAP Neck No JVD Cardiovascular distant heart sounds. Lungs decrease air entry over lung base bilaterally, very mild end-expiratory wheezing all over more on the left that right. crackles all over. Abdomen Soft, No Tenderness Extremities B/L LE edema up to the groin area. both LE has bandages up to the knees. Last 24 Hrs of Labs/Ash: Laboratory Tests 12/15/17 0920: pH 7.18 *L, pCO2 87 *H, pO2 123 H, HCO3 32 H, ABG O2 Sat (Measured) 96.0, Carboxyhemoglobin 0.9 L, O2 Concentration % 80%, Respiration Rate 12, O2 Delivery Method Pending, Vent Mode ST, Expiratory Pressure 6, Inspiratory Pressure 18, Phlebotomy Draw Site LEFT RADIAL 12/15/17 0730: Anion Gap 12, Estimated GFR > 60, BUN/Creatinine Ratio 36.0 H, Glucose 164 H, Calcium 9.8, Magnesium 1.7, Troponin I 0.04, Efo-I-Fkobqqbotpt Pept 7600 H, TSH 2.890, CBC w Diff NO MAN DIFF REQ, RBC 3.93 L, MCV 95.1 H, MCH 30.9, MCHC 32.5 L, RDW 17.4 H, MPV 8.6, Gran % 76.2 H, Lymphocytes % 15.5 L, Monocytes % 6.3 , Eosinophils % 0.1, Basophils % 1.9, Absolute Granulocytes 10.3 H, Absolute Lymphocytes 2.1, Absolute Monocytes 0.9 H, Absolute Eosinophils 0, Absolute Basophils 0.3 Microbiology 12/15 1048 LOWER RESP: Respiratory Culture - ORD 12/15 1048 LOWER RESP: Gram Stain - ORD 12/15 0925 URINE ROUT: Urine Culture - RECD Diagnostic Data EKG Results Regular sinus rhythm, short FL intervals, multiple PVCs, different shapes and P- wave, tachycardic to 124. No ST segment elevation or depression CXR Results IMPRESSION: Increased bronchial wall thickening with interstitial prominence favors developing edema. Hazy right basilar opacity could represent an alveolar component. Alternatively, a small airways process is possible with superimposed right basilar atelectasis/pneumonia. Assessment/Plan Assessment: This is an 86-year-old male with extensive PMH includes but not limited to COPD on 3 L baseline, HFpEF, severe s/p AVR in 2012, and atrial fibrillation who presented with chief complaint of dyspnea. In ED he is found to have acute hypoxic and hypercarbic respiratory failure which most likely secondary to multifactorial etiology including COPD, CHF, ELIZ and atrial fibrillation with rapid rate. PLAN: 1. Acute hypoxic and hypercarbic respiratory failure. Initial ABG after 2 hours of BiPAP at a setting of 16/4 was showing compensated respiratory acidosis.(7.18, 87, 123, 32), because of appropriate bicarbonate compensation, he most likely been retaining CO2 for more than 48 hours. The patient had a history of COPD on 3 L home, he has mild wheezing on physical exam. He also has history of HFpEF, x-ray showed pulmonary edema, BNP is elevated up to 7800, complained of orthopnea and lower extremity edema, which indicated that heart failure may contribute to his presentation. x-ray [place] [address], so there is a possibility of pneumonia. The patient also known to have pulmonary hypertension which most likely play a rule on his presentation. * We will admit patient to telemetry floor * We will continue BiPAP and repeat ABG after 1 hour * We will treat for possible community-acquired pneumonia with azithromycin and ceftriaxone. * For possible COPD exacerbation, will start IV Solu-Medrol 40 q8 tomorrow. * For HFpEF, Patient received 40 mg IV lasix in the ED, we will give another 40 mg IV, then start on home dose daily. * Strict monitoring of ins and outs * We will consider repeat x-ray within the next 48 hours. * We will consult Dr. Rendon group * We will consult granite worker Dr. Sarmiento #Afib, CAD, HTN, Pt noted to be in Afib with rate 110s-120s. He is on eliquis. Denies any acute bleeding event. Had affiliation in 2012. * We will continue Cardizem 240 extended release * We will continue aspirin * We will continue Eliquis 5 mg BID * We will hold Losartan at least for today given higher dose of Lasix that was given #LE wounds: His LLE is wrapped in bandage for chronic non-healing wounds. Sees wound care center. * We will order wound care consult. FC Nothing by mouth for BiPAP DVT PPx with eliquis As Ranked By This Provider Problem List: 1. CHF EXACERBATION 2. Atrial fibrillation 3. COPD exacerbation 4. Pulmonary edema Qualifiers Chronicity: acute Qualified Code: J81.0 - Acute pulmonary edema Core Measures/Misc (06/20) Acute Coronary Syndrome ACS Diagnosis: No Congestive Heart Failure Congestive Heart Failure Diagnosis Yes Cerebrovascular Accident CVA/TIA Diagnosis: No VTE (View Protocol) VTE Risk Factors Age>40 No Mechanical VTE Prophylaxis d/t Other (bl LE bondage) No VTE Pharm Prophylaxis d/t NA PharmProphylax ordered Sepsis (View protocol) Sepsis Present: No Ozzie Galeano MD 12/15/17 1325: Attending MD Review Statement Attending Statement Attending MD Statement: examined this patient, discuss w/resident/PA/RESEARCH SCHOLAR, agreed w/resident/PA/RESEARCH SCHOLAR, reviewed EMR data (avail), discussed with nursing, amended to note Attending Assessment/Plan: Patient is an 86-year-old male with history of oxygen dependent COPD., Status post aortic valve replacement in 2012 with Maze procedure and atrial appendage ligation with recurrent atrial fibrillation on anticoagulant with Eliquis. 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 He is not considered a surgical candidate for his cardiology service. History is also significant for severe pulmonary hypertension,Chronic venous stasis ulcerations, Obstructive sleep apnea. Heart failure with preserved ejection fraction and hypertension. Presented with complaints of shortness of breath that began yesterday. In the emergency room he was promptly placed on oxygen supplementation starting at 10 L /min. He was eventually placed on BiPAP therapy prior to obtaining a blood gas. Patient was then referred to the inpatient medical service for further management. On examination the ER I found the patient on BiPAP therapy. He was drowsy but arousable. Able to follow simple commands. Denied any any painful or respiratory distress. He had no jugular venous distention. Heart sounds are irregular. He had mild rhonchi diffusely. Abdomen is obese soft and nontender. He has bilateral lower extremity edema with compression wrapping in place. Imaging studies and laboratory data reviewed. Problems: 1. Acute hypercapnic/hypoxic respiratory failure. Multifactorial in etiology. CO2 retention suggestive of flareup of his chronic obstructive pulmonary disease. Infiltrates on imaging in addition to his leukocytosis are suggestive of pneumonia. He does appear volume overloaded on imaging that has a significantly elevated BNP. In addition to all this patient has baseline history of severe pulmonary hypertension and valvular heart disease. 2. Atrial fibrillation with mild rapid ventricular response. 3. Coronary artery disease. 4. Chronic lower extremity edema with venous stasis wounds. Plan: -Admit to the inpatient medical service for further management. -Monitor patient on the telemetry unit. Trend cardiac enzymes. -Continue bronchodilator therapy. Systemic steroid therapy with Solu-Medrol 40 mg IV every 8 hours. -Recommend aggressive diuresis with Lasix 40 mg IV twice daily. -Empiric antibiotic therapy with Rocephin/azithromycin. Obtain sputum cultures. Check blood cultures. -Pulmonology and cardiology consultation. -Apparently patient's ABG was done over an hour after he was initiated on BiPAP therapy. Initial BiPAP settings did not appear to be optimal. This has been adjusted by the pulmonology service. Repeat blood gas does show some improvement of his pH and PCO2 level. Follow pulmonology recommendations. It is noted that patient is a full code. -Patient's acute condition is aggravated by his severe pulmonary hypertension and underlying valvular heart disease. Per his cardiology service he is not a candidate for surgical intervention. In view of this his prognosis is guarded. We do anticipate some improvement with treatment of his acute illness. -Continue Cardizem for rate control. Hold losartan in order to ensure he has adequate blood pressure given the need for diuretic therapy. Continue oral anticoagulant therapy.-
[2017-12-15] MEDS ORDERED: DILTIAZEM 24HR240 MG PO (11:55)
--- NOTE | 2017-12-15 11:55 | Cons- Pulmonary ---
General Information and HPI Consulting Request Date of Consult: 12/15/17 Requested By: Dr. Galeano Reason for Consult: hypercarbic respiratory failure Source of Information: patient Exam Limitations: no limitations History of Present Illness: 86-year-old man. Recent admit for CHF/COPD. [facility]. COPD, has been on home oxygen 3LNC. Pt is on spiriva and dulera, nebulizer tx. He is on o2 24/. He has significant osteoporosis and bone pain and is unable to carry portable o2 tanks. An attempt was made to provide the patient with a portable oxygen concentrator. He has received the concentrator that is currently pulsed without a continuous flow. He is a mouth breather has dry mouth, wheezing, leg edema. His retort feeder ground bone is Dr. Rendon. CXR with cardiomegaly, venous congestion. No leukocytosis, BNP 7600. Difficulty ambulating. Leg wounds . No fevers, no chills, no sick contacts, no travel history. Deconditoned and minimal mobility. Yellow sputum. A.fib, no palpitations. Allergies/Medications Allergies: Coded Allergies: lisinopril (COUGHING 10/21/17) Home Med List: Albuterol Sulfate (Proair Hfa) 90 MCG HFA.AER.AD 2 PUF INH 4XDAILY COPD ( Reported) Apixaban (Eliquis) 5 MG TABLET 5 MG PO BID heart Aspirin (Ecotrin*) 81 MG TABLET.DR 1 TAB PO EOD HEART/BLOOD (Reported) Calcitriol 0.25 MCG CAPSULE 1 CAP PO DAILY SUPPLEMENT (Reported) Calcium (Elemental-Fr Calcarb) (Calcium) 600 MG CALCIUM (1,500 MG) TABLET 2 TAB PO QPM SUPPLEMENT (Reported) Cholecalciferol (Vitamin D3) (Vitamin D3) 50,000 UNIT CAPSULE 1 CAP PO QWED SUPPLEMENT (Reported) Clotrimazole/Betamethasone Dip (Clotrimazole-Betamethasone Crm) 1 %-0.05 % CREAM..G. 1 FRANCA TOP AD SKIN FOLDS (Reported) apply to affected area(s) Denosumab (Prolia) 60 MG/ML SYRINGE 60 MG INJ Q6M OSTEOPOROSIS (Reported) Diltiazem HCl (Diltiazem 24HR ER) 240 MG CAP.ER.24H 1 CAP PO DAILY heart rate for A.fib (Reported) Ferrous Sulfate 325 MG (65 MG IRON) TABLET.DR 325 MG PO BID iron Furosemide 40 MG TABLET 2 TAB PO QAM DIURETIC (Reported) Guaifenesin (Guaifenesin ER) 600 MG TAB.ER.12H 600 MG PO Q12 cough Losartan Potassium 50 MG TABLET 1 TAB PO DAILY BP (Reported) Mometasone/Formoterol (Dulera 200 Mcg/5 Mcg Inhaler) 200 MCG-5 MCG/ACTUATION HFA.AER.AD 2 PUF INH BID COPD (Reported) Multivit-Min/FA/Lycopen/Lutein (Centrum Silver Men Tablet) 300 MCG-600 MCG-300 MCG TABLET 1 TAB PO DAILY SUPPLEMENT (Reported) Omeprazole 40 MG CAPSULE.DR 1 CAP PO DAILY GI (Reported) Polycarbophil (Fiber) 625 MG TABLET 1 TAB PO QPM GI (Reported) Potassium Chloride 20 MEQ TAB.ER.PRT 1 TAB PO DAILY SUPPLEMENT (Reported) Tiotropium [place] (Spiriva) 18 MCG CAP.W.DEV 1 CAP INH DAILY COPD (Reported) Current Medications: Current Medications Sig/Migue Start time Last Medication Dose Route Stop Time Status Admin Azithromycin 500 MG DAILY 12/15 1046 AC 12/15 Dextrose/Water 250 ML IV 1140 Ceftriaxone Sodium 0 .STK-MED ONE 12/15 1126 DC .ROUTE Ceftriaxone Sodium 1,000 MG DAILY 12/15 1047 AC 12/15 IV 1127 Diltiazem HCl 0 .STK-MED ONE 12/15 0924 DC .ROUTE Diltiazem HCl 5 MG ONCE ONE 12/15 0900 DC 12/15 IV PUSH 12/15 0901 0922 Furosemide 0 .STK-MED ONE 12/15 1126 DC IV Furosemide 40 MG ONCE ONE 12/15 1100 DC 12/15 IV 12/15 1101 1125 Furosemide 40 MG ONCE ONE 12/15 0745 FL 12/15 IV PUSH 12/15 0746 0745 Furosemide 0 .STK-MED ONE 12/15 0740 DC IV Morphine Sulfate 0 .STK-MED ONE 12/15 0832 DC .ROUTE Morphine Sulfate 2 MG ONCE ONE 12/15 0830 DC 12/15 IV 12/15 0831 0832 Nitroglycerin 1 GM ONCE ONE 12/15 0745 FL 12/15 TOP 12/15 0746 0745 Nitroglycerin 0 .STK-MED ONE 12/15 0741 [facility] Review of Systems Comments 18 point review of systems was performed and reviewed. Please see pertinent positives and pertinent negatives in the HPI. Otherwise ROS is negative. 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 spouse Services at Home: None Functional Ability Ambulation: walker Exam & Diagnostic Data Last 24 Hrs of Vital Signs/I&O Vital Signs Date Time Temp Pulse Resp B/P B/P Pulse O2 O2 Flow FiO2 Mean Ox Delivery Rate 12/16 0902 115 156/72 12/16 0808 97 Nasal 3.5L Cannula 12/16 0807 88 97 12/16 0800 Nasal 3.5L Cannula 12/16 0636 97.8 108 18 130/68 94 BIPAP 12/16 0549 106 93 12/16 0317 96 94 12/16 0033 108 94 12/16 0000 98 BIPAP 40% 12/15 2351 118 128/62 12/15 2234 97.9 130 18 114/60 97 12/15 2211 121 95 12/15 1834 BIPAP 40% 12/15 1830 93 95 12/15 1649 101 100 12/15 1615 103 99 12/15 1435 97.5 124 22 118/54 93 BIPAP 12/15 1423 BIPAP 70% 12/15 1408 95 96 12/15 1312 97.8 120 24 147/70 95 BIPAP 70% 12/15 1127 97.6 118 33 136/66 93 BIPAP 12/15 1110 120 93 12/15 1100 97.8 121 26 138/71 93 BIPAP 60% 12/15 1021 95 BIPAP 60% Intake & Output 12/16 1600 12/16 0800 12/16 0000 Intake Total 120 120 Output Total 800 Balance -680 120 Intake, Oral 120 120 Output, Urine 800 Physical Exam Other Physical Findings: gen awake and alert, mild conversational dyspnea heent bipap cvs s1, s2, irregular lungs diminished bs bases given body habitus abd obese ext with chronic venous stasis Last 48 Hrs of Labs/Ash: Laboratory Tests 12/16/17 0632: Anion Gap 11, Estimated GFR > 60, BUN/Creatinine Ratio 41.0 H, CBC w Diff NO MAN DIFF REQ, RBC 3.45 L, MCV 95.3 H, MCH 30.7, MCHC 32.2 L, RDW 18.1 H, MPV 8.9, Gran % 93.7 H, Lymphocytes % 5.0 L, Monocytes % 1.3 L, Eosinophils % 0, Basophils % 0, Absolute Granulocytes 9.3 H, Absolute Lymphocytes 0.5 L, Absolute Monocytes 0.1, Absolute Eosinophils 0, Absolute Basophils 0 12/15/17 1945: pH 7.42, pCO2 48 H, pO2 70 L, HCO3 30 H, ABG O2 Sat (Measured) 94.0 L, P-50 (Temp Corrected) N, Carboxyhemoglobin 0.8 L, O2 Concentration % .40, Respiration Rate 22, O2 Delivery Method BIPAP, Vent Mode ST, Expiratory Pressure 6, Inspiratory Pressure 22, Phlebotomy Draw Site RIGHT RADIAL 12/15/17 1300: pH 7.28 *L, pCO2 72 *H, pO2 97, HCO3 33 H, ABG O2 Sat (Measured) 95.0 L, Carboxyhemoglobin 1.6, O2 Concentration % 70%, Respiration Rate 12, O2 Delivery Method ST, Vent Mode AC, Expiratory Pressure 6, Inspiratory Pressure 22, Phlebotomy Draw Site LEFT RADIAL 12/15/17 0920: pH 7.18 *L, pCO2 87 *H, pO2 123 H, HCO3 32 H, ABG O2 Sat (Measured) 96.0, Carboxyhemoglobin 0.9 L, O2 Concentration % 80%, Respiration Rate 12, O2 Delivery Method Pending, Vent Mode ST, Expiratory Pressure 6, Inspiratory Pressure 18, Phlebotomy Draw Site LEFT RADIAL 12/15/17 0730: Anion Gap 12, Estimated GFR > 60, BUN/Creatinine Ratio 36.0 H, Glucose 164 H, Calcium 9.8, Magnesium 1.7, Troponin I 0.04, Jly-W-Fokwvrmclan Pept 7600 H, TSH 2.890, CBC w Diff NO MAN DIFF REQ, RBC 3.93 L, MCV 95.1 H, MCH 30.9, MCHC 32.5 L, RDW 17.4 H, MPV 8.6, Gran % 76.2 H, Lymphocytes % 15.5 L, Monocytes % 6.3 , Eosinophils % 0.1, Basophils % 1.9, Absolute Granulocytes 10.3 H, Absolute Lymphocytes 2.1, Absolute Monocytes 0.9 H, Absolute Eosinophils 0, Absolute Basophils 0.3 Assessment/Plan Impression/Plan: Impression 86 year old man * Dyspnea - likely acute exacerbation of COPD accompanied by a possible tracheobronchitis and also underlying acute on chronic chf exacerbation in setting of severe (AVR 2012) * deconditioning/obesity Plan -f/u cardiology, daily weights, diuresis -bipap, f/u abg -solumedrol 40mg iv q8h -monitor finger sticks -cont eliquis -started on ceftriaxone/zithromax -rate control -TRC/Nebs -Incentive spirometry DVT prophylaxis at all times (on Eliquis) Consult Acknowledgment - Thank you for your consult request.
--- NOTE | 2017-12-15 12:09 | Cons- Cardiology ---
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 Patient does have a nonproductive cough but denied fevers or sick contacts at home. Denies any syncope or slurring of speech. On my interview with him in the emergency room he was on BiPAP with some improvement in his symptoms. Allergies/Medications Allergies: Coded Allergies: lisinopril (COUGHING 10/21/17) Home Med List: Albuterol Sulfate (Proair Hfa) 90 MCG HFA.AER.AD 2 PUF INH 4XDAILY COPD ( Reported) Apixaban (Eliquis) 5 MG TABLET 5 MG PO BID heart Aspirin (Ecotrin*) 81 MG TABLET.DR 1 TAB PO EOD HEART/BLOOD (Reported) Calcitriol 0.25 MCG CAPSULE 1 CAP PO DAILY SUPPLEMENT (Reported) Calcium (Elemental-Fr Calcarb) (Calcium) 600 MG CALCIUM (1,500 MG) TABLET 2 TAB PO QPM SUPPLEMENT (Reported) Cholecalciferol (Vitamin D3) (Vitamin D3) 50,000 UNIT CAPSULE 1 CAP PO QWED SUPPLEMENT (Reported) Clotrimazole/Betamethasone Dip (Clotrimazole-Betamethasone Crm) 1 %-0.05 % CREAM..G. 1 FRANCA TOP AD SKIN FOLDS (Reported) apply to affected area(s) Denosumab (Prolia) 60 MG/ML SYRINGE 60 MG INJ Q6M OSTEOPOROSIS (Reported) Diltiazem HCl (Diltiazem 24HR ER) 240 MG CAP.ER.24H 1 CAP PO DAILY heart rate for A.fib (Reported) Ferrous Sulfate 325 MG (65 MG IRON) TABLET.DR 325 MG PO BID iron Furosemide 40 MG TABLET 2 TAB PO QAM DIURETIC (Reported) Guaifenesin (Guaifenesin ER) 600 MG TAB.ER.12H 600 MG PO Q12 cough Losartan Potassium 50 MG TABLET 1 TAB PO DAILY BP (Reported) Mometasone/Formoterol (Dulera 200 Mcg/5 Mcg Inhaler) 200 MCG-5 MCG/ACTUATION HFA.AER.AD 2 PUF INH BID COPD (Reported) Multivit-Min/FA/Lycopen/Lutein (Centrum Silver Men Tablet) 300 MCG-600 MCG-300 MCG TABLET 1 TAB PO DAILY SUPPLEMENT (Reported) Omeprazole 40 MG CAPSULE.DR 1 CAP PO DAILY GI (Reported) Polycarbophil (Fiber) 625 MG TABLET 1 TAB PO QPM GI (Reported) Potassium Chloride 20 MEQ TAB.ER.PRT 1 TAB PO DAILY SUPPLEMENT (Reported) Tiotropium [place] (Spiriva) 18 MCG CAP.W.DEV 1 CAP INH DAILY COPD (Reported) Current Medications: Current Medications Sig/Migue Start time Last Medication Dose Route Stop Time Status Admin Apixaban 5 MG BID 12/15 1156 UNVr PO Aspirin Buffered 81 MG .[EOD] 12/15 1200 UNVr PO Azithromycin 500 MG DAILY 12/15 1046 AC 12/15 Dextrose/Water 250 ML IV 1140 Ceftriaxone Sodium 0 .STK-MED ONE 12/15 1126 DC .ROUTE Ceftriaxone Sodium 1,000 MG DAILY 12/15 1047 AC 12/15 IV 1127 Diltiazem HCl 240 MG DAILY 12/16 1000 UNVr PO Diltiazem HCl 0 .STK-MED ONE 12/15 0924 DC .ROUTE Diltiazem HCl 5 MG ONCE ONE 12/15 0900 DC 12/15 IV PUSH 12/15 0901 0922 Furosemide 0 .STK-MED ONE 12/15 1126 DC IV Furosemide 40 MG ONCE ONE 12/15 1100 DC 12/15 IV 12/15 1101 1125 Furosemide 40 MG ONCE ONE 12/15 0745 DC 12/15 IV PUSH 12/15 0746 0745 Furosemide 0 .STK-MED ONE 12/15 0740 DC IV Morphine Sulfate 0 .STK-MED ONE 12/15 0832 DC .ROUTE Morphine Sulfate 2 MG ONCE ONE 12/15 0830 DC 12/15 IV 12/15 0831 0832 Nitroglycerin 1 GM ONCE ONE 12/15 0745 DC 12/15 TOP 12/15 0746 0745 Nitroglycerin 0 .STK-MED ONE 12/15 0741 DC TOP Omeprazole 40 MG DAILY AC 12/15 1158 UNVr PO Polycarbophil 625 MG QPM 12/15 2200 UNVr PO Potassium Chloride 20 MEQ DAILY 12/16 1000 UNVr PO Tiotropium [place] 1 PUF DAILY 12/16 1000 UNVr INH Review of Systems Review of Systems: As per above HPI. Remainder of a 10 point review of systems was reviewed and was otherwise negative. 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 spouse Services at Home: None Functional Ability Ambulation: walker Exam & Diagnostic Data Vital Signs and I&O Vital Signs Date Time Temp Pulse Resp B/P B/P Pulse O2 O2 Flow FiO2 Mean Ox Delivery Rate 12/15 1127 97.6 118 33 136/66 93 BIPAP 12/15 1110 120 93 12/15 1100 97.8 121 26 138/71 93 BIPAP 60% 12/15 1021 95 BIPAP 60% 12/15 0935 113 94 12/15 0931 97.6 120 26 143/67 97 BIPAP 80% 12/15 0922 97.8 130 31 118/82 12/15 0855 130 97 12/15 0804 96 BIPAP 80% 12/15 0740 128 96 12/15 0737 97.0 122 22 154/82 95 Non 10L ReBreather Intake & Output 12/15 1600 12/15 0800 12/15 0000 12/14 1600 12/14 0800 12/14 0000 Intake Total Output Total 100 Balance -100 Output, Urine 100 Physical Exam: General: no apparent distress. Alert. On BiPAP Eyes: No obvious scleral icterus. HEENT: No jugular venous distention or abnormal jugular venous pulsations. Cardiovascular: Normal intensity S1/S2. Irregular; 3/6 systolic murmur Respiratory: mildly decreased air entry Abdomen: Soft, nontender with no guarding or rebound tenderness. Musculoskeletal: bilateral lower extremity wrappings noted Skin: warm Neurologic: No gross focal deficits noted. Labs/Ash Results: Laboratory Tests 12/15 12/15 0920 0730 Blood Gas pH (7.35 - 7.45 PH) 7.18 *L pCO2 (35 - 45 TORR) 87 *H pO2 (80 - 100 TORR) 123 H HCO3 (21 - 28 MEQ/L) 32 H ABG O2 Sat (Measured) (>96.0 %) 96.0 Carboxyhemoglobin (1.5 - 5.0 %) 0.9 L O2 Concentration % 80% Respiration Rate (BPM) 12 O2 Delivery Method Pending Vent Mode ST Expiratory Pressure (CM H2O P) 6 Inspiratory Pressure (CM H2O P) 18 Chemistry Sodium (137 - 145 mmol/L) 141 Potassium (3.5 - 5.1 mmol/L) 4.6 Chloride (98 - 107 mmol/L) 96 L Carbon Dioxide (22 - 30 mmol/L) 33 H Anion Gap (5 - 16) 12 BUN (9 - 20 mg/dL) 36 H Creatinine (0.7 - 1.2 mg/dL) 1.0 Estimated GFR (>60 ml/min) > 60 BUN/Creatinine Ratio (7 - 25 %) 36.0 H Glucose (65 - 99 mg/dL) 164 H Calcium (8.4 - 10.2 mg/dL) 9.8 Magnesium (1.6 - 2.3 mg/dL) 1.7 Troponin I (<0.11 ng/ml) 0.04 Obk-V-Hnchukufqew Pept (<125 pg/mL) 7600 H TSH (0.270 - 4.200 uIU/mL) 2.890 Hematology CBC w Diff NO MAN DIFF REQ WBC (4.8 - 10.8 /CUMM) 13.5 H RBC (4.70 - 6.10 /CUMM) 3.93 L Hgb (14.0 - 18.0 G/DL) 12.1 L Hct (42 - 52 %) 37.4 L MCV (80.0 - 94.0 FL) 95.1 H MCH (27.0 - 31.0 PG) 30.9 MCHC (33.0 - 37.0 G/DL) 32.5 L RDW (11.5 - 14.5 %) 17.4 H Plt Count (130 - 400 /CUMM) 206 MPV (7.4 - 10.4 FL) 8.6 Gran % (42.2 - 75.2 %) 76.2 H Lymphocytes % (20.5 - 51.1 %) 15.5 L Monocytes % (1.7 - 9.3 %) 6.3 Eosinophils % (0 - 5 %) 0.1 Basophils % (0.0 - 2.0 %) 1.9 Absolute Granulocytes (1.4 - 6.5 /CUMM) 10.3 H Absolute Lymphocytes (1.2 - 3.4 /CUMM) 2.1 Absolute Monocytes (0.10 - 0.60 /CUMM) 0.9 H Absolute Eosinophils (0.0 - 0.7 /CUMM) 0 Absolute Basophils (0.0 - 0.2 /CUMM) 0.3 Miscellaneous Phlebotomy Draw Site LEFT RADIAL Diagnostic Data EKG Results Tracing was personally reviewed and shows rapid atrial fibrillation with isolated PVC versus aberrant Conduction CXR Results Increased bronchial wall thickening with interstitial prominence favors developing edema. Hazy right basilar opacity could represent an alveolar component. Alternatively, a small airways process is possible with superimposed right basilar atelectasis/pneumonia. Other Results Recent echocardiogram Small, underfilled LV chamber size with mild concentric LVH. The estimated LVEF is 60%. There are no focal wall motion abnormalities. Moderately dilated left atrium. Bioprosthetic aortic valve with a well-seated annulus. The leaflets are thickened and calcified. There is limited leaflet excursion. The mean transvalvular gradient is 53 mmHg. There is mild aortic insufficiency. There is moderate to severe tricuspid regurgitation. The estimated PA systolic pressure is 80 millimeters mercury. Yan Monaco M.D. (Electronically Signed) Final Date: 22 October 2017 12:40 Assessment/Plan Assessment/Plan 1. Hypercarbic respiratory insufficiency 2. COPD on home oxygen 3. History of bio AVR in 2013 with Maze procedure and appendage ligation with recurrent atrial fibrillation started on Eliquis 4. 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 Acute on chronic heart failure with preserved ejection fraction 6. Sleep apnea 7. Pulmonary HTN 8. Known history of venous insufficiency The patient is currently on BiPAP and was noted to have hypercarbia with respiratory acidosis. I do not think he is in florid pulmonary edema but may be slightly volume overloaded; he already received a dose of IV Lasix; I would continue him on his oral Lasix regimen while monitoring strict ins and outs and daily weights and we can give him additional IV Lasix as needed to maintain a negative fluid balance. If he remains persistently tachycardic we can increase his baseline oral Cardizem to 360 mg daily. His anticoagulation should be continued. Follow-up pulmonary recommendations. His anticoagulation should be continued and he should be maintained on telemetry for now. Bobby Benavidez MD [facility] Consult Acknowledgment - Thank you for your consult request.
[2017-12-15 14:35] VITALS: BP 118/54
[2017-12-15 22:34] VITALS: BP 114/60
--- NOTE | 2017-12-15 22:34 | Admission Certification ---
Admission Certification Certification Statement - As attending physician, I certify that at the time of - admission, based on clinical presentation, severity of - symptoms, need for further diagnostic testing and - therapeutic interventions, and risk of adverse outcomes - without in-hospital treatment, in my clinical assessment, - this patient requires an acute hospital stay for a minimum - of two nights or longer. I have also considered psychsocial - factors such as support system, advanced age, financial - issues, cognitive issues, and failed out-patient treatments, - past re-admission history, safety of patient, and lack of - compliance as applicable. Specific rationale supporting this admission is: Patient requires hospitalization for management of his acute respiratory failure
[2017-12-16 06:36] VITALS: BP 130/68
[2017-12-16 08:09] LABS: ABSOLUTE BASOPHIL COUNT 0 /CUMM (0.0-0.2); ABSOLUTE EOSINOPHIL COUNT 0 /CUMM (0.0-0.7); ABSOLUTE GRANULOCYTE CT 9.3 /CUMM (1.4-6.5); ABSOLUTE LYMPH COUNT 0.5 /CUMM (1.2-3.4); ABSOLUTE MONOCYTE COUNT 0.1 /CUMM (0.10-0.60); BASOPHIL % 0 % (0.0-2.0); EOSINOPHIL % 0 % (0-5); HEMATOCRIT 32.8 % (42-52); MEAN CORPUSCULAR HGB 30.7 PG (27.0-31.0); MEAN CORPUSCULAR HGB CONC 32.2 G/DL (33.0-37.0); MEAN CORPUSCULAR VOLUME 95.3 FL (80.0-94.0); MEAN PLATELET VOLUME 8.9 FL (7.4-10.4); PLATELET COUNT 151 /CUMM (130-400); RBC DISTRIBUTION WIDTH 18.1 % (11.5-14.5); RED BLOOD CELL CT 3.45 /CUMM (4.70-6.10); WHITE BLOOD CELL COUNT 9.9 /CUMM (4.8-10.8)
[2017-12-16 09:02] VITALS: BP 156/72
[2017-12-16 09:18] LABS: GRANULOCYTE % 93.7 % (42.2-75.2)
--- NOTE | 2017-12-16 09:29 | PN- Cardiology ---
Subjective Subjective: Telemetry reviewed. Atrial fibrillation with somewhat rapid rate of 110-120 and over. This occurs at rest. Objective Vital Signs and I&Os Vital Signs Date Time Temp Pulse Resp B/P B/P Pulse O2 O2 Flow FiO2 Mean Ox Delivery Rate 12/16 0902 115 156/72 12/16 0808 97 Nasal 3.5L Cannula 12/16 0807 88 97 12/16 0800 Nasal 3.5L Cannula 12/16 0636 97.8 108 18 130/68 94 BIPAP 12/16 0549 106 93 12/16 0317 96 94 12/16 0033 108 94 12/16 0000 98 BIPAP 40% 12/15 2351 118 128/62 12/15 2234 97.9 130 18 114/60 97 12/15 2211 121 95 12/15 1834 BIPAP 40% 12/15 1830 93 95 12/15 1649 101 100 12/15 1615 103 99 12/15 1435 97.5 124 22 118/54 93 BIPAP 12/15 1423 BIPAP 70% 12/15 1408 95 96 12/15 1312 97.8 120 24 147/70 95 BIPAP 70% 12/15 1127 97.6 118 33 136/66 93 BIPAP 12/15 1110 120 93 12/15 1100 97.8 121 26 138/71 93 BIPAP 60% 12/15 1021 95 BIPAP 60% 12/15 0935 113 94 12/15 0931 97.6 120 26 143/67 97 BIPAP 80% Intake & Output 12/16 1600 12/16 0800 12/16 0000 12/15 1600 12/15 0800 12/15 0000 Intake Total 120 120 Output Total 800 200 Balance -680 120 -200 Intake, Oral 120 120 Output, Urine 800 200 Patient 265 lb Weight Weight Reported by Patient Measurement Method Physical Exam: I Gen. exam patient appeared comfortable. Claims to feel hungry and feeling better Head normocephalic atraumatic Eyes conjunctiva showed mild sub conjunctiva hemorrhage, sclera anicteric conjunctiva showed no pallor extraocular muscles were normal Neck no jugular venous distention no thyroid masses no palpable nodes Chest lungs were clear bilaterally Heart irregular rhythm with a ventricle rate around 110. Grade 2 to 3/6 ejection systolic murmur Abdomen soft no organomegaly bowel sounds normal Extremities chronic venous stasis no edema stasis dermatitis. Neurological no gross motor or sensory deficits Results Last 48 Hrs of Labs/Mics: Laboratory Tests 12/16/17 0632: Anion Gap 11, Estimated GFR > 60, BUN/Creatinine Ratio 41.0 H, CBC w Diff NO MAN DIFF REQ, RBC 3.45 L, MCV 95.3 H, MCH 30.7, MCHC 32.2 L, RDW 18.1 H, MPV 8.9, Gran % 93.7 H, Lymphocytes % 5.0 L, Monocytes % 1.3 L, Eosinophils % 0, Basophils % 0, Absolute Granulocytes 9.3 H, Absolute Lymphocytes 0.5 L, Absolute Monocytes 0.1, Absolute Eosinophils 0, Absolute Basophils 0 12/15/17 1945: pH 7.42, pCO2 48 H, pO2 70 L, HCO3 30 H, ABG O2 Sat (Measured) 94.0 L, P-50 (Temp Corrected) N, Carboxyhemoglobin 0.8 L, O2 Concentration % .40, Respiration Rate 22, O2 Delivery Method BIPAP, Vent Mode ST, Expiratory Pressure 6, Inspiratory Pressure 22, Phlebotomy Draw Site RIGHT RADIAL 12/15/17 1300: pH 7.28 *L, pCO2 72 *H, pO2 97, HCO3 33 H, ABG O2 Sat (Measured) 95.0 L, Carboxyhemoglobin 1.6, O2 Concentration % 70%, Respiration Rate 12, O2 Delivery Method ST, Vent Mode AC, Expiratory Pressure 6, Inspiratory Pressure 22, Phlebotomy Draw Site LEFT RADIAL 12/15/17 0920: pH 7.18 *L, pCO2 87 *H, pO2 123 H, HCO3 32 H, ABG O2 Sat (Measured) 96.0, Carboxyhemoglobin 0.9 L, O2 Concentration % 80%, Respiration Rate 12, O2 Delivery Method Pending, Vent Mode ST, Expiratory Pressure 6, Inspiratory Pressure 18, Phlebotomy Draw Site LEFT RADIAL 12/15/17 0730: Anion Gap 12, Estimated GFR > 60, BUN/Creatinine Ratio 36.0 H, Glucose 164 H, Calcium 9.8, Magnesium 1.7, Troponin I 0.04, Uyz-L-Npyrlvrybga Pept 7600 H, TSH 2.890, CBC w Diff NO MAN DIFF REQ, RBC 3.93 L, MCV 95.1 H, MCH 30.9, MCHC 32.5 L, RDW 17.4 H, MPV 8.6, Gran % 76.2 H, Lymphocytes % 15.5 L, Monocytes % 6.3 , Eosinophils % 0.1, Basophils % 1.9, Absolute Granulocytes 10.3 H, Absolute Lymphocytes 2.1, Absolute Monocytes 0.9 H, Absolute Eosinophils 0, Absolute Basophils 0.3 Assessment/Plan Assessment/Plan In summary this 86-year-old gentleman has the following problems 1. Hypercarbic respiratory insufficiency 2. COPD on home oxygen 3. 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 Acute on chronic heart failure with preserved ejection fraction 6. Sleep apnea 7. Pulmonary HTN 8. Known history of venous insufficiency Patient is feeling clinically better. By telemetry is ventricular rate is still rapid. I would add digoxin 0.25 mg by mouth twice a day for first 2 days and thereafter 0.125 mg a day. Continue diltiazem 240 mg in combination with digoxin to address resting ventricular rate. Continue telemetry? Yes
--- NOTE | 2017-12-16 10:24 | PN- Housestaff ---
[facility]ES[facility] 12/16/17 1024: Subjective Follow-up For: Shortness breath Subjective: Afebrile, blood pressure stable on the lower border of normal, and tachycardia up to 150. The patient reports significant improvement compared to yesterday, his cough is now productive of yellow sputum. He reported choking on food prior to admission. He continued to deny chest pain or palpitation. He is still on BiPAP. Review of Systems Constitutional: Reports: no symptoms. Objective Last 24 Hrs of Vital Signs/I&O Vital Signs Date Time Temp Pulse Resp B/P B/P Pulse O2 O2 Flow FiO2 Mean Ox Delivery Rate 12/16 1210 110 98 12/16 1020 132 97 12/16 0902 115 156/72 12/16 0808 97 Nasal 3.5L Cannula 12/16 0807 88 97 12/16 0800 Nasal 3.5L Cannula 12/16 0636 97.8 108 18 130/68 94 BIPAP 12/16 0549 106 93 12/16 0317 96 94 12/16 0033 108 94 12/16 0000 98 BIPAP 40% 12/15 2351 118 128/62 12/15 2234 97.9 130 18 114/60 97 12/15 2211 121 95 12/15 1834 BIPAP 40% 12/15 1830 93 95 12/15 1649 101 100 12/15 1615 103 99 Intake & Output 12/16 1600 12/16 0800 12/16 0000 Intake Total 641 120 120 Output Total 800 Balance 641 -680 120 Intake, IV 281 Intake, Oral 360 120 120 Output, Urine 800 Physical Exam General Appearance: Alert, Oriented X3, Cooperative, No Acute Distress Skin: No Rashes HEENT: Atraumatic, PERRLA, EOMI, DRY MOUTH MOST LIKELY SECONDARY TO bIpap Neck: No JVD Cardiovascular: REGULAR HEART RHYTHM, TACHYCARDIA, GRADE 3/6 PANSYSTOLIC MURMUR Lungs: DECREASED AIR ENTRY ALLOVER LUNG BILATERALLY, MILD RHONCHI DIFFUSELY OVER THE RIGHT SIDE MORE THAN THE LEFT. NO WHEEZING Abdomen: Soft, No Tenderness Neurological: Normal Speech Extremities: No Clubbing, No Cyanosis, No Edema, CHRONIC VENOUS STASIS WITH SKIN CHANGES BUT NO EDEMA Current Medications: Current Medications Sig/Migue Start time Last Medication Dose Route Stop Time Status Admin Albuterol Sulfate 3 ML EVERY 4 HRS/AWAKE 12/16 1600 AC INH Albuterol Sulfate 3 ML EVERY 4 HRS/AWAKE .. 12/15 1848 DC 12/16 INH 12/16 1559 1203 Albuterol Sulfate 3 ML Q6P PRN 12/15 1215 DC INH Apixaban 5 MG BID 12/15 1156 AC 12/16 PO 0905 Aspirin Buffered 81 MG Q48 12/15 1200 AC PO Azithromycin 500 MG DAILY 12/15 1046 AC 12/16 Dextrose/Water 250 ML IV 0905 Ceftriaxone Sodium 1,000 MG DAILY 12/15 1047 AC 12/16 IV 0905 Digoxin 0.25 MG BID 12/16 1347 AC PO 12/17 2201 Diltiazem HCl 240 MG DAILY 12/16 1000 AC 12/16 PO 0905 Diltiazem HCl 60 MG .STK-MED ONE 12/15 2349 DC PO 12/15 2350 Diltiazem HCl 60 MG ONCE ONE 12/15 2315 DC 12/15 PO 12/15 2316 2351 Furosemide 80 MG QAM 12/16 1000 AC 12/16 PO 0905 Ipratropium [place] 2.5 ML DAILY 12/16 1000 CAN INH Methylprednisolone 40 MG Q8 12/15 1400 AC 12/16 IV 1308 Nystatin 1 FRANCA TID 12/16 1600 AC TOP Omeprazole 40 MG DAILY AC 12/15 1158 AC PO Polycarbophil 625 MG QPM 12/15 2200 AC PO Potassium Chloride 20 MEQ DAILY 12/16 1000 AC 12/16 PO 0905 Tiotropium [place] 1 PUF DAILY 12/16 1000 AC 12/16 INH 0905 Last 24 Hrs of Lab/Ash Results Last 24 Hrs of Labs/Mics: Laboratory Tests 12/16/17 0632: Anion Gap 11, Estimated GFR > 60, BUN/Creatinine Ratio 41.0 H, CBC w Diff NO MAN DIFF REQ, RBC 3.45 L, MCV 95.3 H, MCH 30.7, MCHC 32.2 L, RDW 18.1 H, MPV 8.9, Gran % 93.7 H, Lymphocytes % 5.0 L, Monocytes % 1.3 L, Eosinophils % 0, Basophils % 0, Absolute Granulocytes 9.3 H, Absolute Lymphocytes 0.5 L, Absolute Monocytes 0.1, Absolute Eosinophils 0, Absolute Basophils 0 12/15/175: pH 7.42, pCO2 48 H, pO2 70 L, HCO3 30 H, ABG O2 Sat (Measured) 94.0 L, P-50 (Temp Corrected) N, Carboxyhemoglobin 0.8 L, O2 Concentration % .40, Respiration Rate 22, O2 Delivery Method BIPAP, Vent Mode ST, Expiratory Pressure 6, Inspiratory Pressure 22, Phlebotomy Draw Site RIGHT RADIAL Microbiology 12/15 1500 LOWER RESP: Respiratory Culture - CAN Cancelled: NUMBER OF SQUAMOUS CELLS INDICATES POOR QUALITY SPECIMEN 12/15 1500 LOWER RESP: Gram Stain - CAN Cancelled: NUMBER OF SQUAMOUS CELLS INDICATES POOR QUALITY SPECIMEN Assessment/Plan Assessment: This is an 86-year-old male with extensive PMH includes but not limited to COPD on 3 L baseline, HFpEF, severe s/p AVR in 2013, and atrial fibrillation who presented with chief complaint of dyspnea. In ED he is found to have acute hypoxic and hypercarbic respiratory failure which most likely secondary to multifactorial etiology including COPD, CHF, ELIZ and atrial fibrillation with rapid rate. PLAN: #Acute hypoxic and hypercarbic respiratory failure. Patient symptoms significantly improve. He start coughing yellow nonbloody sputum. Last ABG was done yesterday at 8 PM which showed normal pH with CO2 of 48, PaO2 70, bicarbonate 30. Patient reported choking on food at home, x-ray showed possible right base pneumonia which could represent aspiration pneumonia, given that his symptom and leukocytosis improved on azithromycin and ceftriaxone we will continue same medication. * We will continue azithromycin and ceftriaxone * We will continue IV Solu-Medrol 40 q8 tomorrow. * We will continue home dose of Lasix * We will order modify swallow eval * Strict monitoring of ins and outs * We will follow pulmonology and cardiology #Afib, CAD, HTN, Pt noted to be in Afib with rate 110s-150s. He is on eliquis. Denies any acute bleeding event. Had ablation in 2013. * We will continue Cardizem 240 extended release * We will start digoxin 0.25 mg twice a day for 2 days followed by 0.125 mg daily * We will continue aspirin * We will continue Eliquis 5 mg BID * We will hold Losartan at least for today given higher dose of Lasix that was given #LE wounds: His LLE is wrapped in bandage for chronic non-healing wounds. Sees wound care center. * We will order wound care consult. FC Nothing by mouth for BiPAP DVT PPx with eliquis Problem List: 1. Pulmonary edema 2. COPD exacerbation Pain Ratin Pain Location: na Pain Goal: Remain pain free Pain Plan: See A&P Tomorrow's Labs & Rationales: CBC to follow hemoglobin BEP to follow bicarbonate Froylan COLES,Ozzie 12/16/17 1139: Attending Review Statement Attending Statement Attending MD Statement: examined this patient, discuss w/resident/PA/COATING MIXER, agreed w/resident/PA/COATING MIXER, reviewed EMR data (avail), discussed with nursing, discussed with case mgmt, amended to note Attending Assessment/Plan: Patient seen and examined. He was taken off BiPAP therapy this morning and placed on 3.5 L of oxygen. Nursing staff reports finding with labored breathing. He was placed on 5 L of oxygen. When I evaluated him he was hypoxic saturating 80-89% on 5 L oxygen. He had labored breathing through his mouth and cyanotic lips. Patient eventually requested to be placed back on BiPAP therapy which was done this morning. Currently more comfortable. He is afebrile. He is hemodynamically stable. He remains in atrial fibrillation with mildly rapid ventricular response. When off BiPAP therapy this morning patient complained of difficulty swallowing. He did not do well with a bedside swallow eval and modified barium swallow was recommended. On examination he is currently more comfortable. Heart sounds are irregular. 3/6 systolic murmur. Diminished breath sounds but. Abdomen is obese soft and nontender. Recommendations: -Continue BiPAP therapy and follow-up ABG as recommended by the pulmonology service. -Continue bronchodilator therapy. Continue current dose of systemic steroid therapy. -Monitor fingersticks. -Continue empiric antibiotic therapy with ceftriaxone/azithromycin. Obtain modified barium swallow once patient is off BiPAP therapy. -Continue Cardizem for rate control. Cardiology follow-up appreciated. Digoxin has been recommended for added rate control. Continue anticoagulation therapy with Eliquis.
--- NOTE | 2017-12-16 10:33 | PN- Pulmonary ---
Subjective HPI/Critical Care Issues: pt seen and examined continues to require bipap for reduction of work of breathing Objective Current Medications: Current Medications Sig/Migue Start time Last Medication Dose Route Stop Time Status Admin Albuterol Sulfate 3 ML EVERY 4 HRS/AWAKE .. 12/15 1848 AC 12/16 INH 0803 Albuterol Sulfate 3 ML Q6P PRN 12/15 1215 DC INH Apixaban 5 MG BID 12/15 1156 AC 12/16 PO 0905 Aspirin Buffered 81 MG Q48 12/15 1200 AC PO Azithromycin 500 MG DAILY 12/15 1046 AC 12/16 Dextrose/Water 250 ML IV 0905 Ceftriaxone Sodium 0 .STK-MED ONE 12/15 1126 DC .ROUTE Ceftriaxone Sodium 1,000 MG DAILY 12/15 1047 AC 12/16 IV 0905 Diltiazem HCl 240 MG DAILY 12/16 1000 AC 12/16 PO 0905 Diltiazem HCl 60 MG .STK-MED ONE 12/15 2349 DC PO 12/15 2350 Diltiazem HCl 60 MG ONCE ONE 12/15 2315 DC 12/15 PO 12/15 2316 2351 Furosemide 80 MG QAM 12/16 1000 AC 12/16 PO 0905 Furosemide 0 .STK-MED ONE 12/15 1126 DC IV Furosemide 40 MG ONCE ONE 12/15 1100 DC 12/15 IV 12/15 1101 1125 Ipratropium [place] 2.5 ML DAILY 12/16 1000 CAN INH Methylprednisolone 40 MG Q8 12/15 1400 AC 12/16 IV 0615 Omeprazole 40 MG DAILY AC 12/15 1158 AC PO Polycarbophil 625 MG QPM 12/15 2200 AC PO Potassium Chloride 20 MEQ DAILY 12/16 1000 AC 12/16 PO 0905 Tiotropium [place] 1 PUF DAILY 12/16 1000 AC 12/16 INH 0905 Vital Signs & I&O Last 24 Hrs of Vitals and I&O: Vital Signs Date Time Temp Pulse Resp B/P B/P Pulse O2 O2 Flow FiO2 Mean Ox Delivery Rate 12/16 0902 115 156/72 12/16 0808 97 Nasal 3.5L Cannula 12/16 0807 88 97 12/16 0800 Nasal 3.5L Cannula 12/16 0636 97.8 108 18 130/68 94 BIPAP 12/16 0549 106 93 12/16 0317 96 94 12/16 0033 108 94 12/16 0000 98 BIPAP 40% 12/15 2351 118 128/62 12/15 2234 97.9 130 18 114/60 97 12/15 2211 121 95 12/15 1834 BIPAP 40% 12/15 1830 93 95 12/15 1649 101 100 12/15 1615 103 99 12/15 1435 97.5 124 22 118/54 93 BIPAP 12/15 1423 BIPAP 70% 12/15 1408 95 96 12/15 1312 97.8 120 24 147/70 95 BIPAP 70% 12/15 1127 97.6 118 33 136/66 93 BIPAP 12/15 1110 120 93 12/15 1100 97.8 121 26 138/71 93 BIPAP 60% Intake & Output 12/16 1600 12/16 0800 12/16 0000 Intake Total 120 120 Output Total 800 Balance -680 120 Intake, Oral 120 120 Output, Urine 800 Exam Other Physical Findings: gen awake and alert, mild conversational dyspnea heent bipap cvs s1, s2, irregular lungs diminished bs bases given body habitus abd obese ext with chronic venous stasis Results Last 24 Hrs of Lab Results: Laboratory Tests 12/16/17 0632: Anion Gap 11, Estimated GFR > 60, BUN/Creatinine Ratio 41.0 H, CBC w Diff NO MAN DIFF REQ, RBC 3.45 L, MCV 95.3 H, MCH 30.7, MCHC 32.2 L, RDW 18.1 H, MPV 8.9, Gran % 93.7 H, Lymphocytes % 5.0 L, Monocytes % 1.3 L, Eosinophils % 0, Basophils % 0, Absolute Granulocytes 9.3 H, Absolute Lymphocytes 0.5 L, Absolute Monocytes 0.1, Absolute Eosinophils 0, Absolute Basophils 0 12/15/17 1945: pH 7.42, pCO2 48 H, pO2 70 L, HCO3 30 H, ABG O2 Sat (Measured) 94.0 L, P-50 (Temp Corrected) N, Carboxyhemoglobin 0.8 L, O2 Concentration % .40, Respiration Rate 22, O2 Delivery Method BIPAP, Vent Mode ST, Expiratory Pressure 6, Inspiratory Pressure 22, Phlebotomy Draw Site RIGHT RADIAL 12/15/17 1300: pH 7.28 *L, pCO2 72 *H, pO2 97, HCO3 33 H, ABG O2 Sat (Measured) 95.0 L, Carboxyhemoglobin 1.6, O2 Concentration % 70%, Respiration Rate 12, O2 Delivery Method ST, Vent Mode AC, Expiratory Pressure 6, Inspiratory Pressure 22, Phlebotomy Draw Site LEFT RADIAL Impression/Plan Impression/Plan Impression/Plan: Impression 86 year old man * Dyspnea - likely acute exacerbation of COPD accompanied by a possible tracheobronchitis and also underlying acute on chronic chf exacerbation in setting of severe (AVR 2012) * deconditioning/obesity Plan -f/u cardiology, daily weights, diuresis -bipap, f/u abg -continue solumedrol 40mg iv q8h -monitor finger sticks -cont eliquis -started on ceftriaxone/zithromax -rate control -TRC/Nebs -Incentive spirometry need to address code status DVT prophylaxis at all times (on Eliquis)
[2017-12-16 15:12] VITALS: BP 140/80
[2017-12-16 22:12] VITALS: BP 110/80
[2017-12-17 06:48] VITALS: BP 124/64
--- NOTE | 2017-12-17 07:34 | PN- Housestaff ---
Tori COLES,[facility] 12/17/17 0733: Subjective Follow-up For: -Acute hypoxic hypercarbic respiratory failure -Atrial fibrillation with rapid ventricular response Subjective: Afebrile on steroids, hemodynamically stable with a heart rate between 70 to 100. He reports significant improvement of his dyspnea, this morning he saturating mid 90s on 5 L of oxygen. He still producing yellow nonbloody sputum. Waiting for modified swallow evaluation later today. Denies any current active complaints Review of Systems Constitutional: Reports: see HPI. Denies: chills, fever, weakness. Objective Last 24 Hrs of Vital Signs/I&O Vital Signs Date Time Temp Pulse Resp B/P B/P Pulse O2 O2 Flow FiO2 Mean Ox Delivery Rate 12/17 0828 128/60 12/17 0825 78 96 12/17 0807 96 BIPAP 40% 12/17 0806 72 96 12/17 0648 97.4 95 18 124/64 97 BIPAP 12/17 0600 97 BIPAP 40% 12/17 0544 101 97 12/17 0430 93 Nasal 5.0L Cannula 12/17 0313 87 96 12/17 0018 93 97 12/17 0000 98 BIPAP 40% 12/16 2214 99 98 12/16 2212 97.4 95 20 110/80 98 BIPAP 12/16 2200 98 BIPAP 40% 12/16 2143 104 96 12/16 2137 114 144/84 12/16 1709 112 92 12/16 1618 68 140/80 12/16 1613 96 Nasal 5.0L Cannula 12/16 1553 68 97 12/16 1512 97.6 105 20 140/80 98 12/16 1210 110 98 12/16 1020 132 97 Intake & Output 12/17 1600 12/17 0800 12/17 0000 Intake Total 350 Output Total 250 150 Balance 100 -150 Intake, IV 350 Output, Urine 250 150 Patient 117.169 kg Weight Physical Exam General Appearance: Alert, Oriented X3, Cooperative, No Acute Distress Skin: No Rashes HEENT: Atraumatic, PERRLA, EOMI, Mucous Membr. moist/pink Neck: No JVD Cardiovascular: Irregular heart rhythem, 3/6 pansystolic murmur Lungs: air-entry improved, no wheezing but mild rhonichy on the right side base Abdomen: Soft, No Tenderness Neurological: Normal Speech Extremities: chronic venostasis changes Current Medications: Current Medications Sig/Migue Start time Last Medication Dose Route Stop Time Status Admin Albuterol Sulfate 3 ML EVERY 4 HRS/AWAKE 12/16 1600 AC 12/17 INH 0803 Albuterol Sulfate 3 ML EVERY 4 HRS/AWAKE .. 12/15 1848 DC 12/16 INH 12/16 1559 1203 Apixaban 5 MG BID 12/15 1156 AC 12/17 PO 0828 Aspirin Buffered 81 MG Q48 12/15 1200 AC 12/17 PO 0828 Azithromycin 500 MG DAILY 12/15 1046 AC 12/17 Dextrose/Water 250 ML IV 0829 Ceftriaxone Sodium 1,000 MG DAILY 12/15 1047 AC 12/17 IV 0829 Dextrose/Sodium 1,000 ML Q20H 12/16 1815 AC 12/16 Chloride IV 1903 Digoxin 0.25 MG BID 12/16 1347 AC 12/17 PO 12/17 2201 0828 Diltiazem HCl 240 MG DAILY 12/16 1000 AC 12/17 PO 0828 Furosemide 80 MG QAM 12/16 1000 AC 12/17 PO 0829 Methylprednisolone 40 MG Q8 12/15 1400 AC 12/17 IV 0535 Nystatin 1 FRANCA TID 12/16 1600 AC 12/17 TOP 0829 Omeprazole 40 MG DAILY AC 12/15 1158 AC PO Polycarbophil 625 MG QPM 12/15 2200 AC 12/16 PO 2132 Potassium Chloride 20 MEQ DAILY 12/16 1000 AC 12/17 PO 0828 Tiotropium [place] 1 PUF DAILY 12/16 1000 AC 12/17 INH 0829 Last 24 Hrs of Lab/Ash Results Last 24 Hrs of Labs/Mics: Laboratory Tests 12/17/17 0615: Anion Gap 9, Estimated GFR 52 L, BUN/Creatinine Ratio 43.1 H, CBC w Diff Pending, WBC Pending, RBC Pending, Hgb Pending, Hct Pending, MCV Pending, MCH Pending, MCHC Pending, RDW Pending, Plt Count Pending, MPV Pending Assessment/Plan Assessment: The patient was admitted on December 15 for dyspnea, he was found to have acute hypoxic hypercarbic respiratory failure which most likely secondary to multifactorial underlying conditions includes COPD, A. fib with RVR, and pneumonia. On first day of admission he was given extra dose of Lasix given pulmonary edema on x-ray, he was started on antibiotic for pneumonia that was seen on x-ray, and he was started on IV steroid for possible COPD exacerbation. Now he saturating mid 90s on 5 L(baseline is 3.5 L), heartrate is controlled after adding digoxin yesterday. Assessment The patient improved significantly since admission. Currently he is on ceftriaxone and azithromycin for community-acquired pneumonia, we order modified barium swallow to rule out aspiration given history of shocking at home and the location of the pneumonia on x-ray. For COPD exacerbation he is receiving IV Solu-Medrol, given the improvement in dyspnea and wheezing we will discuss with pulmonology tapering down steroids. Atrial fibrillation with RVR improved after adding digoxin yesterday, currently he is hemodynamically stable with a heart rate in the 80s. This morning creatinine increased up to 1.3 from 1 yesterday which most likely prerenal secondary to Lasix and nothing by mouth. Plan * For CAP continue ceftriaxone and azithromycin * To rule out aspiration, NPO until modified barium swallow later today * COPD exacerbation, improved, we will taper steroids to Solu-Medrol Q12 * For A. fib, continue Cardizem ER 240, digoxin as per cardio, eliquis, ASA and Tele monitoring * For LEXIE, we'll hold losartan, continue IV fluid, and will follow renal function tests * For HFpEF, continue home dose of Lasix and DC [place], will consider hold Lasix if Cr increase * We will continue BiPAP as needed FC Nothing by mouth for BiPAP and pending swallowing eval DVT PPx with eliquis Problem List: 1. COPD exacerbation 2. Atrial fibrillation 3. Acute and chronic respiratory failure with hypoxia Pain Ratin Pain Location: NA Pain Goal: Remain pain free Pain Plan: See A&P Tomorrow's Labs & Rationales: BEP to follow kidney function Froylan COLES,Jaredugwalingmaria alejandra 12/17/17 1151: Attending MD Review Statement Attending Statement Attending MD Statement: examined this patient, discuss w/resident/PA/EMPLOYMENT RECRUITER, agreed w/resident/PA/EMPLOYMENT RECRUITER, reviewed EMR data (avail), discussed with nursing, discussed with case mgmt, amended to note Attending Assessment/Plan: Patient seen and examined. Tolerated BiPAP overnight. It was discontinued this morning and is doing much better than he was doing yesterday. He is maintaining saturation on 5 L of oxygen. He reports feeling better. He does report a productive cough. On examination he does not appear to be in acute respiratory distress. He has rhonchorous breath sounds bilaterally. Heart sounds are irregular. Abdomen is soft and nontender with normal bowel sounds. He has trace lower extremity edema. Recommendations: -Continue bronchodilator therapy. Taper down steroids to every 12 hours today. -Continue empiric antibiotic therapy with azithromycin/Rocephin. Obtain sputum cultures. -Creatinine level is trending upwards. Patient is on Lasix 80 mg daily orally. This is his home dose. Will monitor renal function closely. If creatinine continues to trend up we will consider holding Lasix. -Patient is scheduled for swallow evaluation today. -Continue rate control with diltiazem and digoxin. Continue anticoagulation with Eliquis.
[2017-12-17 08:26] LABS: ABSOLUTE BASOPHIL COUNT 0 /CUMM (0.0-0.2); ABSOLUTE EOSINOPHIL COUNT 0 /CUMM (0.0-0.7); ABSOLUTE GRANULOCYTE CT 9.2 /CUMM (1.4-6.5); ABSOLUTE LYMPH COUNT 0.5 /CUMM (1.2-3.4); ABSOLUTE MONOCYTE COUNT 0.5 /CUMM (0.10-0.60); BASOPHIL % 0.1 % (0.0-2.0); EOSINOPHIL % 0.1 % (0-5); GRANULOCYTE % 89.8 % (42.2-75.2); HEMATOCRIT 32.1 % (42-52); MEAN CORPUSCULAR HGB 31.1 PG (27.0-31.0); MEAN CORPUSCULAR HGB CONC 32.9 G/DL (33.0-37.0); MEAN CORPUSCULAR VOLUME 94.4 FL (80.0-94.0); MEAN PLATELET VOLUME 8.6 FL (7.4-10.4); PLATELET COUNT 157 /CUMM (130-400); RBC DISTRIBUTION WIDTH 18.5 % (11.5-14.5); WHITE BLOOD CELL COUNT 10.3 /CUMM (4.8-10.8)
--- NOTE | 2017-12-17 12:38 | PN- Cardiology ---
Subjective Subjective: Feeling better today. Still reports a cough but not producing much sputum. Objective Vital Signs and I&Os Vital Signs Date Time Temp Pulse Resp B/P B/P Pulse O2 O2 Flow FiO2 Mean Ox Delivery Rate 12/17 0828 128/60 12/17 0825 78 96 12/17 0807 96 BIPAP 40% 12/17 0806 72 96 12/17 0648 97.4 95 18 124/64 97 BIPAP 12/17 0600 97 BIPAP 40% 12/17 0544 101 97 12/17 0430 93 Nasal 5.0L Cannula 12/17 0313 87 96 12/17 0018 93 97 12/17 0000 98 BIPAP 40% 12/16 2214 99 98 12/16 2212 97.4 95 20 110/80 98 BIPAP 12/16 2200 98 BIPAP 40% 12/16 2143 104 96 12/16 2137 114 144/84 12/16 1709 112 92 12/16 1618 68 140/80 12/16 1613 96 Nasal 5.0L Cannula 12/16 1553 68 97 12/16 1512 97.6 105 20 140/80 98 Intake & Output 12/17 1600 12/17 0800 12/17 0000 12/16 1600 12/16 0800 12/16 0000 Intake Total 350 641 120 120 Output Total 250 150 550 800 Balance 100 -150 91 -680 120 Intake, IV 350 281 Intake, Oral 360 120 120 Output, Urine 250 150 550 800 Patient 258 lb Weight Physical Exam: General: no apparent distress. Alert. On nasal cannula Eyes: No obvious scleral icterus. HEENT: No jugular venous distention or abnormal jugular venous pulsations. Cardiovascular: Normal intensity S1/S2. Irregular; 3/6 systolic murmur Respiratory: mildly decreased air entry Abdomen: Soft, nontender with no guarding or rebound tenderness. Musculoskeletal: Trace edema Skin: warm Neurologic: No gross focal deficits noted. Current Medications: Current Medications Sig/Migue Start time Last Medication Dose Route Stop Time Status Admin Albuterol Sulfate 3 ML EVERY 4 HRS/AWAKE 12/16 1600 AC 12/17 INH 1134 Albuterol Sulfate 3 ML EVERY 4 HRS/AWAKE .. 12/15 1848 DC 12/16 INH 12/16 1559 1203 Apixaban 5 MG BID 12/15 1156 AC 12/17 PO 0828 Aspirin Buffered 81 MG Q48 12/15 1200 AC 12/17 PO 0828 Azithromycin 500 MG DAILY 12/15 1046 AC 12/17 Dextrose/Water 250 ML IV 0829 Ceftriaxone Sodium 1,000 MG DAILY 12/15 1047 AC 12/17 IV 0829 Dextrose/Sodium 1,000 ML Q20H 12/16 1815 AC 12/16 Chloride IV 1903 Digoxin 0.25 MG BID 12/16 1347 AC 12/17 PO 12/17 2201 0828 Diltiazem HCl 240 MG DAILY 12/16 1000 AC 12/17 PO 0828 Furosemide 80 MG QAM 12/16 1000 AC 12/17 PO 0829 Methylprednisolone 40 MG Q12 12/17 2200 AC IV Methylprednisolone 40 MG Q8 12/15 1400 DC 12/17 IV 0535 Nystatin 1 FRANCA TID 12/16 1600 AC 12/17 TOP 0829 Omeprazole 40 MG DAILY AC 12/15 1158 AC PO Polycarbophil 625 MG QPM 12/15 2200 AC 12/16 PO 2132 Potassium Chloride 20 MEQ DAILY 12/16 1000 AC 12/17 PO 0828 Tiotropium [place] 1 PUF DAILY 12/16 1000 AC 12/17 INH 0829 Results Last 48 Hrs of Labs/Mics: Laboratory Tests 12/17/17 0615: Anion Gap 9, Estimated GFR 52 L, BUN/Creatinine Ratio 43.1 H, CBC w Diff NO MAN DIFF REQ, RBC 3.40 L, MCV 94.4 H, MCH 31.1 H, MCHC 32.9 L, RDW 18.5 H, MPV 8.6, Gran % 89.8 H, Lymphocytes % 5.3 L, Monocytes % 4.7, Eosinophils % 0.1, Basophils % 0.1, Absolute Granulocytes 9.2 H, Absolute Lymphocytes 0.5 L, Absolute Monocytes 0.5, Absolute Eosinophils 0, Absolute Basophils 0 12/16/17 0632: Anion Gap 11, Estimated GFR > 60, BUN/Creatinine Ratio 41.0 H, CBC w Diff NO MAN DIFF REQ, RBC 3.45 L, MCV 95.3 H, MCH 30.7, MCHC 32.2 L, RDW 18.1 H, MPV 8.9, Gran % 93.7 H, Lymphocytes % 5.0 L, Monocytes % 1.3 L, Eosinophils % 0, Basophils % 0, Absolute Granulocytes 9.3 H, Absolute Lymphocytes 0.5 L, Absolute Monocytes 0.1, Absolute Eosinophils 0, Absolute Basophils 0 12/15/17 1945: pH 7.42, pCO2 48 H, pO2 70 L, HCO3 30 H, ABG O2 Sat (Measured) 94.0 L, P-50 (Temp Corrected) N, Carboxyhemoglobin 0.8 L, O2 Concentration % .40, Respiration Rate 22, O2 Delivery Method BIPAP, Vent Mode ST, Expiratory Pressure 6, Inspiratory Pressure 22, Phlebotomy Draw Site RIGHT RADIAL 12/15/17 1300: pH 7.28 *L, pCO2 72 *H, pO2 97, HCO3 33 H, ABG O2 Sat (Measured) 95.0 L, Carboxyhemoglobin 1.6, O2 Concentration % 70%, Respiration Rate 12, O2 Delivery Method ST, Vent Mode AC, Expiratory Pressure 6, Inspiratory Pressure 22, Phlebotomy Draw Site LEFT RADIAL Recent Imaging Studies: Telemetry tracings were personally reviewed and show atrial fibrillation with controlled ventricular response rate Assessment/Plan Assessment/Plan 1. Hypercarbic respiratory insufficiency 2. COPD on home oxygen 3. 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 Acute on chronic heart failure with preserved ejection fraction 6. Sleep apnea 7. Pulmonary HTN 8. Known history of venous insufficiency Patient is improving. Overall heart rate appears well controlled on telemetry. Can continue on the oral Lasix while monitoring creatinine which has increased slightly today. Continue oral anticoagulation. Bobby Benavidez MD [facility] Continue telemetry? No
--- NOTE | 2017-12-17 13:08 | RADIOLOGY REPORT ---
EXAMINATION: XR MODIFIED BARIUM SWALLOW CLINICAL INFORMATION: Check on food. Aspiration pneumonia. COMPARISON: None. TECHNIQUE: A modified barium swallow was performed with speech pathologist in attendance. Pur?e, honey thick, nectar thick, thin, bread, and cracker consistencies were given to the patient and the swallowing mechanism was observed fluoroscopically with several spot films taken using the last image hold feature. FLUOROSCOPY TIME: 2 minutes 29 seconds. FINDINGS: With all consistencies, the oral phase of swallowing is largely normal, though on occasion, premature passage of the contrast into the valleculae is noted. There is mild pooling of contrast in the valleculae which clears on successive swallows. With thin barium and with bread and cracker consistency, transient penetration of contrast is seen, largely silent. On one or 2 occasions, with the thin contrast penetration, delayed sensation and cough reflex was elicited.. IMPRESSION: 1. Premature spillage of contrast into the valleculae seen with all consistencies with pooling in the vallecula noted, clearing on successive swallows. 2. Transient largely silent penetration of contrast is noted with liquid barium and bread and cracker consistency. 3. Speech pathologist assessment issued separately.
[2017-12-17 14:00] VITALS: BP 120/70
--- NOTE | 2017-12-17 14:41 | PN- Pulmonary ---
Subjective HPI/Critical Care Issues: Patient seen and examined this morning. He appears to be doing better. Objective Current Medications: Current Medications Sig/Migue Start time Last Medication Dose Route Stop Time Status Admin Albuterol Sulfate 3 ML EVERY 4 HRS/AWAKE 12/16 1600 AC 12/17 INH 1134 Apixaban 5 MG BID 12/15 1156 AC 12/17 PO 0828 Aspirin Buffered 81 MG Q48 12/15 1200 AC 12/17 PO 0828 Azithromycin 500 MG DAILY 12/15 1046 AC 12/17 Dextrose/Water 250 ML IV 0829 Ceftriaxone Sodium 1,000 MG DAILY 12/15 1047 AC 12/17 IV 0829 Dextrose/Sodium 1,000 ML Q20H 12/16 1815 AC 12/16 Chloride IV 1903 Digoxin 0.25 MG BID 12/16 1347 AC 12/17 PO 12/17 2201 0828 Diltiazem HCl 240 MG DAILY 12/16 1000 AC 12/17 PO 0828 Furosemide 80 MG QAM 12/16 1000 AC 12/17 PO 0829 Methylprednisolone 40 MG Q12 12/17 2200 AC IV Methylprednisolone 40 MG Q8 12/15 1400 DC 12/17 IV 0535 Nystatin 1 FRANCA TID 12/16 1600 AC 12/17 TOP 0829 Omeprazole 40 MG DAILY AC 12/15 1158 AC PO Polycarbophil 625 MG QPM 12/15 2200 AC 12/16 PO 2132 Potassium Chloride 20 MEQ DAILY 12/16 1000 AC 12/17 PO 0828 Tiotropium [place] 1 PUF DAILY 12/16 1000 AC 12/17 INH 0829 Vital Signs & I&O Last 24 Hrs of Vitals and I&O: Vital Signs Date Time Temp Pulse Resp B/P B/P Pulse O2 O2 Flow FiO2 Mean Ox Delivery Rate 12/17 1400 98.0 87 20 120/70 94 Nasal 4.0L Cannula 12/17 0828 128/60 12/17 0825 78 96 12/17 0807 96 BIPAP 40% 12/17 0806 72 96 12/17 0648 97.4 95 18 124/64 97 BIPAP 12/17 0600 97 BIPAP 40% 12/17 0544 101 97 12/17 0430 93 Nasal 5.0L Cannula 12/17 0313 87 96 12/17 0018 93 97 12/17 0000 98 BIPAP 40% 12/16 2214 99 98 12/16 2212 97.4 95 20 110/80 98 BIPAP 12/16 2200 98 BIPAP 40% 12/16 2143 104 96 12/167 114 144/84 12/16 1709 112 92 12/16 1618 68 140/80 12/16 1613 96 Nasal 5.0L Cannula 12/16 1553 68 97 12/16 1512 97.6 105 20 140/80 98 Intake & Output 12/17 1600 12/17 0800 12/17 0000 Intake Total 350 Output Total 250 150 Balance 100 -150 Intake, IV 350 Output, Urine 250 150 Patient 258 lb 258 lb Weight Exam Other Physical Findings: gen awake and alert, mild conversational dyspnea heent nasal cannula cvs s1, s2, irregular lungs diminished bs bases given body habitus abd obese ext with chronic venous stasis Results Last 24 Hrs of Lab Results: Laboratory Tests 12/17/17 0615: Anion Gap 9, Estimated GFR 52 L, BUN/Creatinine Ratio 43.1 H, CBC w Diff NO MAN DIFF REQ, RBC 3.40 L, MCV 94.4 H, MCH 31.1 H, MCHC 32.9 L, RDW 18.5 H, MPV 8.6, Gran % 89.8 H, Lymphocytes % 5.3 L, Monocytes % 4.7, Eosinophils % 0.1, Basophils % 0.1, Absolute Granulocytes 9.2 H, Absolute Lymphocytes 0.5 L, Absolute Monocytes 0.5, Absolute Eosinophils 0, Absolute Basophils 0 Impression/Plan Impression/Plan Impression/Plan: Impression 86 year old man * Dyspnea - likely acute exacerbation of COPD accompanied by a possible tracheobronchitis and also underlying acute on chronic chf exacerbation in setting of severe (AVR 2012) * deconditioning/obesity * ELIZ * pulmonary htn Plan -f/u cardiology, daily weights, diuresis -bipap -reduce solumedrol 40mg iv q12h -monitor finger sticks -cont eliquis -course of abx ceftriaxone/zithromax -rate control -TRC/Nebs -Incentive spirometry need to address code status DVT prophylaxis at all times (on Eliquis)
[2017-12-17 22:27] VITALS: BP 132/68
--- NOTE | 2017-12-18 08:38 | PN- Housestaff ---
See Addendum Subjective Follow-up For: -Acute hypoxic hypercarbic respiratory failure -Atrial fibrillation with rapid ventricular response Tele-Events Since Last Visit: A-fib 67-90s, some PVCs Subjective: No overnight event. Patient slept for 2 hours overnight with BiPAP. denied CP/ dizziness. NO otherspecific complaint. Review of Systems Constitutional: Reports: see HPI. Objective Last 24 Hrs of Vital Signs/I&O Vital Signs Date Time Temp Pulse Resp B/P B/P Pulse O2 O2 Flow FiO2 Mean Ox Delivery Rate 12/18 0815 94 12/18 0710 86 95 12/18 0600 98.0 86 22 91 12/18 0600 89 Nasal 5.0L Cannula 12/18 0300 63 98 12/18 0050 83 94 12/17 2227 98.0 100 28 132/68 90 Nasal 5.0L Cannula 12/17 2224 90 Nasal 5.0L Cannula 12/17 2206 82 95 12/17 2200 90 Nasal 5.0L Cannula 12/17 2116 100 132/68 12/17 1615 92 Nasal 5.0L Cannula 12/17 1600 94 Nasal 5.0L Cannula 12/17 1400 94 Nasal 5.0L Cannula 12/17 1400 98.0 87 20 120/70 94 Nasal 4.0L Cannula Intake & Output 12/18 1600 12/18 0800 12/18 0000 Intake Total 720 240 Output Total 600 200 Balance 120 40 Intake, IV 0 Intake, Oral 720 240 Number 1 0 Bowel Movements Output, Urine 600 200 Physical Exam General Appearance: Alert, Oriented X3, Cooperative, No Acute Distress Cardiovascular: Regular Rate Lungs: Normal Air Movement Abdomen: Soft, No Tenderness Neurological: Normal Speech Extremities: No Edema, Normal Pulses, BLE chronic skin change Current Medications: Current Medications Sig/Migue Start time Last Medication Dose Route Stop Time Status Admin Albuterol Sulfate 3 ML EVERY 4 HRS/AWAKE 12/16 1600 AC 12/18 INH 0807 Apixaban 5 MG BID 12/15 1156 AC 12/18 PO 0834 Aspirin Buffered 81 MG Q48 12/15 1200 AC 12/17 PO 0828 Azithromycin 500 MG DAILY 12/15 1046 AC 12/18 Dextrose/Water 250 ML IV 0835 Ceftriaxone Sodium 1,000 MG DAILY 12/15 1047 AC 12/18 IV 0836 Dextrose/Sodium 1,000 ML Q20H 12/16 1815 DC 12/16 Chloride IV 1903 Digoxin 0.125 MG 1700 12/18 1700 AC PO Digoxin 0.25 MG BID 12/16 1347 DC 12/17 PO 12/17 2201 2116 Diltiazem HCl 240 MG DAILY 12/16 1000 AC 12/18 PO 0835 Furosemide 80 MG QAM 12/16 1000 AC 12/18 PO 0834 Methylprednisolone 40 MG Q12 12/17 2200 DC 12/18 IV 0835 Methylprednisolone 40 MG Q8 12/15 1400 DC 12/17 IV 0535 Nystatin 1 FRANCA TID 12/16 1600 AC 12/18 TOP 0835 Omeprazole 40 MG DAILY AC 12/15 1158 AC 12/18 PO 0543 Polycarbophil 625 MG QPM 12/15 2200 AC 12/17 PO 2116 Potassium Chloride 20 MEQ DAILY 12/16 1000 AC 12/18 PO 0834 Prednisone 60 MG DAILY 12/19 1000 UNVr PO Tiotropium [place] 1 PUF DAILY 12/16 1000 AC 12/18 INH 0835 Last 24 Hrs of Lab/Ash Results Last 24 Hrs of Labs/Mics: Laboratory Tests 12/18/17 0621: Sodium Pending, Potassium Pending, Chloride Pending, Carbon Dioxide Pending, Anion Gap Pending, BUN Pending, Creatinine Pending, BUN/Creatinine Ratio Pending , CBC w Diff NO MAN DIFF REQ, RBC 3.56 L, MCV 95.2 H, MCH 31.0, MCHC 32.5 L, RDW 17.9 H, MPV 8.7, Gran % 92.9 H, Lymphocytes % 2.7 L, Monocytes % 4.4, Eosinophils % 0, Basophils % 0, Absolute Granulocytes 11.1 H, Absolute Lymphocytes 0.3 L, Absolute Monocytes 0.5, Absolute Eosinophils 0, Absolute Basophils 0 Assessment/Plan Assessment: The patient was admitted on December 15 for dyspnea, he was found to have acute hypoxic hypercarbic respiratory failure which most likely secondary to multifactorial underlying conditions includes COPD, A. fib with RVR, and pneumonia. On first day of admission he was given extra dose of Lasix given pulmonary edema on x-ray, he was started on antibiotic for pneumonia that was seen on x-ray, and he was started on IV steroid for possible COPD exacerbation. Now he saturating mid 90s on 5 L(baseline is 3.5 L), heartrate is controlled after adding digoxin yesterday. Assessment The patient improved significantly since admission. Currently he is on ceftriaxone and azithromycin for community-acquired pneumonia, we order modified barium swallow to rule out aspiration given history of shocking at home and the location of the pneumonia on x-ray. For COPD exacerbation he is receiving IV Solu-Medrol, given the improvement in dyspnea and wheezing we will discuss with pulmonology tapering down steroids. Atrial fibrillation with RVR improved after adding digoxin yesterday, currently he is hemodynamically stable with a heart rate in the 80s. This morning creatinine increased up to 1.3 from 1 yesterday which most likely prerenal secondary to Lasix and nothing by mouth. Plan * For CAP continue ceftriaxone and azithromycin today, currently day 4 * To rule out aspiration, MBS passed, on heart healthy diet w/ puree/nectar * COPD exacerbation, improved, we will taper steroids to Solu-Medrol Qd and start PO prednisone on 12/19. * For A. fib, continue Cardizem ER 240, digoxin as per cardio, eliquis, ASA and Tele monitoring * For LEXIE, we'll hold losartan, continue IV fluid, and will follow renal function tests - Cr remained elevated 1.3 on latest lab, will continue holding Losartan * For HFpEF, continue home dose of Lasix 80mg qd, and SHELDON [place], will consider hold Lasix if Cr increase * We will continue BiPAP as needed FC Heart healthy diet nectar/Puree DVT PPx with eliquis Problem List: 1. Atrial fibrillation 2. Acute and chronic respiratory failure with hypoxia 3. COPD Pain Ratin Pain Location: NA Pain Goal: Remain pain free Pain Plan: see AP Tomorrow's Labs & Rationales: CBC/BEP
--- NOTE | 2017-12-18 08:55 | PN- Pulmonary ---
Subjective HPI/Critical Care Issues: Patient's feel shortness of breath is improved still has a cough Objective Current Medications: Current Medications Sig/Migue Start time Last Medication Dose Route Stop Time Status Admin Albuterol Sulfate 3 ML EVERY 4 HRS/AWAKE 12/16 1600 AC 12/18 INH 0807 Apixaban 5 MG BID 12/15 1156 AC 12/18 PO 0834 Aspirin Buffered 81 MG Q48 12/15 1200 AC 12/17 PO 0828 Azithromycin 500 MG DAILY 12/15 1046 AC 12/18 Dextrose/Water 250 ML IV 0835 Ceftriaxone Sodium 1,000 MG DAILY 12/15 1047 AC 12/18 IV 0836 Dextrose/Sodium 1,000 ML Q20H 12/16 1815 DC 12/16 Chloride IV 1903 Digoxin 0.125 MG 1700 12/18 1700 AC PO Digoxin 0.25 MG BID 12/16 1347 DC 12/17 PO 12/17 2201 2116 Diltiazem HCl 240 MG DAILY 12/16 1000 AC 12/18 PO 0835 Furosemide 80 MG QAM 12/16 1000 AC 12/18 PO 0834 Methylprednisolone 40 MG Q12 12/17 2200 AC 12/18 IV 0835 Methylprednisolone 40 MG Q8 12/15 1400 DC 12/17 IV 0535 Nystatin 1 FRANCA TID 12/16 1600 AC 12/18 TOP 0835 Omeprazole 40 MG DAILY AC 12/15 1158 AC 12/18 PO 0543 Polycarbophil 625 MG QPM 12/15 2200 AC 12/17 PO 2116 Potassium Chloride 20 MEQ DAILY 12/16 1000 AC 12/18 PO 0834 Tiotropium [place] 1 PUF DAILY 12/16 1000 AC 12/18 INH 0835 Vital Signs & I&O Last 24 Hrs of Vitals and I&O: Vital Signs Date Time Temp Pulse Resp B/P B/P Pulse O2 O2 Flow FiO2 Mean Ox Delivery Rate 12/18 0815 94 12/18 0710 86 95 12/18 0600 98.0 86 22 91 12/18 0600 89 Nasal 5.0L Cannula 12/18 0300 63 98 12/18 0050 83 94 12/177 98.0 100 28 132/68 90 Nasal 5.0L Cannula 12/174 90 Nasal 5.0L Cannula 12/176 82 95 12/17 2200 90 Nasal 5.0L Cannula 12/17 2116 100 132/68 12/17 1615 92 Nasal 5.0L Cannula 12/17 1600 94 Nasal 5.0L Cannula 12/17 1400 94 Nasal 5.0L Cannula 12/17 1400 98.0 87 20 120/70 94 Nasal 4.0L Cannula Intake & Output 12/18 1600 12/18 0800 12/18 0000 Intake Total 720 240 Output Total 600 200 Balance 120 40 Intake, IV 0 Intake, Oral 720 240 Number 1 0 Bowel Movements Output, Urine 600 200 Impression/Plan Impression/Plan Impression/Plan: And saturation 5 L 94% exam of his chest shows occasional expiratory wheezing cardiac exam shows a regular S1 and S2 with systolic ejection murmur is chronic venous stasis changes and edema gentleman admitted with increasing shortness of breath hypercarbic respiratory failure improved with diuresis and treatment of COPD. Recommendations: DC IV Solu-Medrol begin oral prednisone. Continue negative fluid balance as renal function allows. taPer FiO2 his saturations allow follow up cultures
[2017-12-18 09:27] LABS: ABSOLUTE BASOPHIL COUNT 0 /CUMM (0.0-0.2); ABSOLUTE EOSINOPHIL COUNT 0 /CUMM (0.0-0.7); ABSOLUTE GRANULOCYTE CT 11.1 /CUMM (1.4-6.5); ABSOLUTE LYMPH COUNT 0.3 /CUMM (1.2-3.4); ABSOLUTE MONOCYTE COUNT 0.5 /CUMM (0.10-0.60); BASOPHIL % 0 % (0.0-2.0); EOSINOPHIL % 0 % (0-5); GRANULOCYTE % 92.9 % (42.2-75.2); HEMATOCRIT 33.9 % (42-52); MEAN CORPUSCULAR HGB CONC 32.5 G/DL (33.0-37.0); MEAN CORPUSCULAR VOLUME 95.2 FL (80.0-94.0); MEAN PLATELET VOLUME 8.7 FL (7.4-10.4); PLATELET COUNT 156 /CUMM (130-400); RBC DISTRIBUTION WIDTH 17.9 % (11.5-14.5); RED BLOOD CELL CT 3.56 /CUMM (4.70-6.10)
[2017-12-18 15:37] VITALS: BP 130/72
--- NOTE | 2017-12-18 18:24 | PN- Cardiology ---
Subjective Subjective: Stable overnight. NO new CV complaints. Objective Vital Signs and I&Os Vital Signs Date Time Temp Pulse Resp B/P B/P Pulse O2 O2 Flow FiO2 Mean Ox Delivery Rate 12/18 1815 78 138/82 12/18 1559 93 97 12/18 1537 98.2 87 23 130/72 90 Nasal 7.0L Cannula 12/18 1512 91 94 12/18 1400 95 Nasal 5.0L Cannula 12/18 1323 88 93 12/18 1217 65 92 12/18 1146 94 Nasal 5.0L Cannula 12/18 0815 94 12/18 0800 97 Nasal 5.0L Cannula 12/18 0710 86 95 12/18 0600 98.0 86 22 91 12/18 0600 89 Nasal 5.0L Cannula 12/18 0300 63 98 12/18 0050 83 94 12/17 2227 98.0 100 28 132/68 90 Nasal 5.0L Cannula 12/17 2224 90 Nasal 5.0L Cannula 12/17 2206 82 95 12/17 2200 90 Nasal 5.0L Cannula 12/17 2116 100 132/68 Intake & Output 12/18 1600 12/18 0800 12/18 0000 12/17 1600 12/17 0800 12/17 0000 Intake Total 700 720 240 100 350 Output Total 500 600 200 525 250 150 Balance 200 120 40 -425 100 -150 Intake, IV 250 0 100 350 Intake, Oral 450 720 240 Number 1 0 Bowel Movements Output, Urine 500 600 200 525 250 150 Patient 258 lb 258 lb Weight Current Medications: Current Medications Sig/Migue Start time Last Medication Dose Route Stop Time Status Admin Albuterol Sulfate 3 ML EVERY 4 HRS/AWAKE 12/16 1600 AC 12/18 INH 1555 Apixaban 5 MG BID 12/15 1156 AC 12/18 PO 0834 Aspirin Buffered 81 MG Q48 12/15 1200 AC 12/17 PO 0828 Azithromycin 500 MG DAILY 12/15 1046 AC 12/18 Dextrose/Water 250 ML IV 0835 Ceftriaxone Sodium 1,000 MG DAILY 12/15 1047 AC 12/18 IV 0836 Dextrose/Sodium 1,000 ML Q20H 12/16 1815 DC 12/16 Chloride IV 1903 Digoxin 0.125 MG 1700 12/18 1700 AC 12/18 PO 1815 Digoxin 0.25 MG BID 12/16 1347 DC 03/16 PO 12/17 2201 2116 Diltiazem HCl 240 MG DAILY 12/16 1000 AC 12/18 PO 0835 Furosemide 80 MG QAM 12/16 1000 AC 12/18 PO 0834 Methylprednisolone 40 MG Q12 12/17 2200 DC 12/18 IV 0835 Nystatin 1 FRANCA TID 12/16 1600 AC 12/18 TOP 1815 Omeprazole 40 MG DAILY AC 12/15 1158 AC 12/18 PO 0543 Polycarbophil 625 MG QPM 12/15 2200 AC 12/17 PO 2116 Potassium Chloride 20 MEQ DAILY 12/16 1000 AC 12/18 PO 0834 Prednisone 60 MG DAILY 12/19 1000 AC PO Tiotropium [place] 1 PUF DAILY 12/16 1000 AC 12/18 INH 0835 Results Last 48 Hrs of Labs/Mics: Laboratory Tests 12/18/17 0621: Anion Gap 9, Estimated GFR 52 L, BUN/Creatinine Ratio 46.9 H, CBC w Diff NO MAN DIFF REQ, RBC 3.56 L, MCV 95.2 H, MCH 31.0, MCHC 32.5 L, RDW 17.9 H, MPV 8.7, Gran % 92.9 H, Lymphocytes % 2.7 L, Monocytes % 4.4, Eosinophils % 0, Basophils % 0, Absolute Granulocytes 11.1 H, Absolute Lymphocytes 0.3 L, Absolute Monocytes 0.5, Absolute Eosinophils 0, Absolute Basophils 0 12/17/17 0615: Anion Gap 9, Estimated GFR 52 L, BUN/Creatinine Ratio 43.1 H, CBC w Diff NO MAN DIFF REQ, RBC 3.40 L, MCV 94.4 H, MCH 31.1 H, MCHC 32.9 L, RDW 18.5 H, MPV 8.6, Gran % 89.8 H, Lymphocytes % 5.3 L, Monocytes % 4.7, Eosinophils % 0.1, Basophils % 0.1, Absolute Granulocytes 9.2 H, Absolute Lymphocytes 0.5 L, Absolute Monocytes 0.5, Absolute Eosinophils 0, Absolute Basophils 0 Assessment/Plan Assessment/Plan Assessment: 1. Hypercarbic respiratory insufficiency 2. COPD on home oxygen 3. 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 Acute on chronic heart failure with preserved ejection fraction 6. Sleep apnea 7. Pulmonary HTN 8. Known history of venous insufficiency Recommendations: - Continue current medication - Continue daily lasix with monitoring of I/Os etc. - Followup metabolic parameters in AM Continue telemetry? Yes
[2017-12-18 22:35] VITALS: BP 140/100
--- NOTE | 2017-12-19 08:42 | PN- Pulmonary ---
Subjective HPI/Critical Care Issues: Patient is comfortable on nasal BiPAP. Objective Current Medications: Current Medications Sig/Migue Start time Last Medication Dose Route Stop Time Status Admin Albuterol Sulfate 3 ML EVERY 4 HRS/AWAKE 12/16 1600 AC 12/19 INH 0742 Apixaban 5 MG BID 12/15 1156 AC 12/18 PO 2233 Aspirin Buffered 81 MG Q48 12/15 1200 AC 12/17 PO 0828 Azithromycin 500 MG DAILY 12/15 1046 AC 12/18 Dextrose/Water 250 ML IV 0835 Ceftriaxone Sodium 1,000 MG DAILY 12/15 1047 AC 12/18 IV 0836 Digoxin 0.125 MG 1700 12/18 1700 AC 12/18 PO 1815 Diltiazem HCl 240 MG DAILY 12/16 1000 AC 12/18 PO 0835 Furosemide 80 MG QAM 12/16 1000 AC 12/18 PO 0834 Methylprednisolone 40 MG Q12 12/17 2200 DC 12/18 IV 0835 Nystatin 1 FRANCA TID 12/16 1600 AC 12/18 TOP 2233 Omeprazole 40 MG DAILY AC 12/15 1158 AC 12/19 PO 0604 Polycarbophil 625 MG QPM 12/15 2200 AC 12/18 PO 2233 Potassium Chloride 20 MEQ DAILY 12/16 1000 AC 12/18 PO 0834 Prednisone 60 MG DAILY 12/19 1000 AC PO Tiotropium [place] 1 PUF DAILY 12/16 1000 AC 12/18 INH 0835 Vital Signs & I&O Last 24 Hrs of Vitals and I&O: Vital Signs Date Time Temp Pulse Resp B/P B/P Pulse O2 O2 Flow FiO2 Mean Ox Delivery Rate 12/19 0825 81 94 12/19 0742 91 Nasal 5.0L Cannula 12/19 0600 CPAP 95% 12/19 0544 63 96 12/19 0309 72 96 12/19 0003 80 94 12/19 0000 CPAP 12/18 2235 98.0 103 20 140/100 90 12/18 2200 96 BIPAP 40% 12/18 2200 90 96 12/18 2030 96 BIPAP 40% 12/18 1900 92 96 12/18 1815 78 138/82 12/18 1559 93 97 12/18 1537 98.2 87 23 130/72 90 Nasal 7.0L Cannula 12/18 1512 91 94 12/18 1400 95 Nasal 5.0L Cannula 12/18 1323 88 93 12/18 1217 65 92 12/18 1146 94 Nasal 5.0L Cannula Intake & Output 12/19 1600 12/19 0800 12/19 0000 Intake Total 550 Output Total 500 450 Balance 50 -450 Intake, Oral 550 Output, Urine 500 450 Since saturation 5 L 94% exam of his chest shows diminished breath sounds wheezes cardiac exam shows a regular S1 and S2 without murmurs abdomen is soft Impression/Plan Impression/Plan Impression/Plan: 86-year-old with respiratory failure improved on BiPAP aspiration pneumonia Recommendations: DC IV Solu-Medrol begin oral prednisone. Continue negative fluid balance as renal function allows. taPer FiO2 his saturations allow follow up cultures complete course of antibiotics
--- NOTE | 2017-12-19 09:32 | PN- Cardiology ---
Subjective Subjective: The patient is lying in bed, comfortable, denies any significant change. Feels better than yesterday. Objective Vital Signs and I&Os Vital Signs Date Time Temp Pulse Resp B/P B/P Pulse O2 O2 Flow FiO2 Mean Ox Delivery Rate 12/19 0825 81 94 12/19 0742 91 Nasal 5.0L Cannula 12/19 0600 CPAP 95% 12/19 0544 63 96 12/19 0309 72 96 12/19 0003 80 94 12/19 0000 CPAP 12/18 2235 98.0 103 20 140/100 90 12/18 2200 96 BIPAP 40% 12/18 2200 90 96 12/18 2030 96 BIPAP 40% 12/18 1900 92 96 12/18 1815 78 138/82 12/18 1559 93 97 12/18 1537 98.2 87 23 130/72 90 Nasal 7.0L Cannula 12/18 1512 91 94 12/18 1400 95 Nasal 5.0L Cannula 12/18 1323 88 93 12/18 1217 65 92 12/18 1146 94 Nasal 5.0L Cannula Intake & Output 12/19 1600 12/19 0800 12/19 0000 12/18 1600 12/18 0800 12/18 0000 Intake Total 550 700 720 240 Output Total 500 450 500 600 200 Balance 50 -450 200 120 40 Intake, IV 250 0 Intake, Oral 550 450 720 240 Number 1 0 Bowel Movements Output, Urine 500 450 500 600 200 Physical Exam: General Appearance: Alert, Oriented X3, Cooperative, No Acute Distress Skin: No Rashes HEENT: Atraumatic, PERRLA, EOMI, Mucous Membr. moist/pink Neck: No JVD Cardiovascular: Irregular heart rhythem, 3/6 pansystolic murmur Lungs: air-entry improved, no wheezing but mild rhonichy on the right side base Abdomen: Soft, No Tenderness Neurological: Normal Speech Extremities: chronic venostasis changes Current Medications: Current Medications Sig/Migue Start time Last Medication Dose Route Stop Time Status Admin Albuterol Sulfate 3 ML EVERY 4 HRS/AWAKE 12/16 1600 AC 12/19 INH 0742 Apixaban 5 MG BID 12/15 1156 AC 12/19 PO 0903 Aspirin Buffered 81 MG Q48 12/15 1200 AC 12/19 PO 0904 Azithromycin 500 MG DAILY 12/15 1046 AC 12/19 Dextrose/Water 250 ML IV 0905 Ceftriaxone Sodium 1,000 MG DAILY 12/15 1047 AC 12/19 IV 0904 Digoxin 0.125 MG 1700 12/18 1700 AC 12/18 PO 1815 Diltiazem HCl 240 MG DAILY 12/16 1000 AC 12/19 PO 0903 Furosemide 80 MG QAM 12/16 1000 AC 12/19 PO 0904 Methylprednisolone 40 MG Q12 12/17 2200 DC 12/18 IV 0835 Nystatin 1 FRANCA TID 12/16 1600 AC 12/19 TOP 0905 Omeprazole 40 MG DAILY AC 12/15 1158 AC 12/19 PO 0604 Polycarbophil 625 MG QPM 12/15 2200 AC 12/18 PO 2233 Potassium Chloride 20 MEQ DAILY 12/16 1000 AC 12/19 PO 0904 Prednisone 60 MG DAILY 12/19 1000 AC 12/19 PO 0904 Tiotropium [place] 1 PUF DAILY 12/16 1000 AC 12/19 INH 0903 Results Last 48 Hrs of Labs/Mics: Laboratory Tests 12/19/17 0623: Anion Gap 10, Estimated GFR > 60, BUN/Creatinine Ratio 50.0 H 12/18/17 0621: Anion Gap 9, Estimated GFR 52 L, BUN/Creatinine Ratio 46.9 H, CBC w Diff NO MAN DIFF REQ, RBC 3.56 L, MCV 95.2 H, MCH 31.0, MCHC 32.5 L, RDW 17.9 H, MPV 8.7, Gran % 92.9 H, Lymphocytes % 2.7 L, Monocytes % 4.4, Eosinophils % 0, Basophils % 0, Absolute Granulocytes 11.1 H, Absolute Lymphocytes 0.3 L, Absolute Monocytes 0.5, Absolute Eosinophils 0, Absolute Basophils 0 Assessment/Plan Assessment/Plan Assessment: 1. Hypercarbic respiratory insufficiency 2. COPD on home oxygen 3. 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 Acute on chronic heart failure with preserved ejection fraction 6. Sleep apnea 7. Pulmonary HTN 8. Known history of venous insufficiency Recommendations: -The patient appears to be improving clinically -Heart rate remains controlled, continue current medications -Continue other medications for now. -Follow-up in the morning. Continue telemetry? No
--- NOTE | 2017-12-19 12:50 | PN- Att Addend ---
Attending Addendum Attending Brief Note Patient seen and examined. Continues to require BiPAP therapy on and off. He was on BiPAP therapy this morning. He did receive a break was placed on high flow oxygen to eat breakfast. Resting comfortably. Occasionally appear short of breath. Denies chest pain. Continues complain of productive cough. He is afebrile. He is hemodynamically stable. On examination he has no jugular venous distention. Heart sounds are regular. Decreased breath sounds bilaterally with no added sounds. Trace peripheral edema. Recommendations: -Continue bronchodilator therapy. Patient has been started on oral prednisone. -Continue BiPAP therapy as needed. He is currently on high flow oxygen. Continue therapy for his advanced COPD as recommended by the pulmonology service. -Lasix therapy was held due to elevation of creatinine. Creatinine level is improved today. Resume his home Lasix dose tomorrow. -Physical therapy consultation to mobilize patient as tolerated. -Complete 10 days of antibiotic therapy for pneumonia.
[2017-12-19 14:36] VITALS: BP 130/60
[2017-12-19 22:41] VITALS: BP 134/64
[2017-12-20 06:48] VITALS: BP 140/68
--- NOTE | 2017-12-20 07:14 | PN- Housestaff ---
Nicolas COLES,Andrés 12/20/17 0714: Subjective Follow-up For: Acute hypercarbic hypoxic respiratory failure Pneumonia Pneumonia Subjective: Patient is seen and examined at bedside while he is on high flow nasal, during overnight, he was on BiPAP. Patient appears upset and states that he would like his BiPAP removed exactly around 7 AM and switched to high flow so he can have his breakfast at 7 AM. Otherwise he reports that his breathing is much better compared to yesterday's, he does not endorse any chest pain, palpitation, fever, chills, abdominal pain, nausea, or dysuria. Review of Systems Constitutional: Reports: see HPI. Objective Last 24 Hrs of Vital Signs/I&O Vital Signs Date Time Temp Pulse Resp B/P B/P Pulse O2 O2 Flow FiO2 Mean Ox Delivery Rate 12/20 0648 96.6 86 20 140/68 93 BIPAP 12/20 0543 73 94 12/20 0328 95 BIPAP 40% 12/20 0309 77 95 12/20 0014 71 93 12/19 2241 98.4 97 22 134/64 95 Nasal Cannula 12/19 2225 82 95 12/19 2215 94 Nasal 60% Cannula 12/19 204 85 134/70 12/19 204 95 Nasal 60% Cannula 12/19 2009 88 91 12/19 1602 73 93 12/19 1601 93 BIPAP 40% 12/19 1436 98.3 78 22 130/60 92 BIPAP 12/19 1322 86 92 12/19 1148 80 94 Intake & Output 12/20 1600 12/20 0800 12/20 0000 Intake Total 360 360 Output Total 425 750 Balance -65 -390 Intake, Oral 360 360 Output, Urine 425 750 Physical Exam General Appearance: Alert, Oriented X3, mildly anxious Current Medications: Current Medications Sig/Migue Start time Last Medication Dose Route Stop Time Status Admin Albuterol Sulfate 3 ML EVERY 4 HRS/AWAKE 12/16 1600 AC 12/20 INH 0314 Amoxicillin/ 875 MG Q12 12/20 1000 AC 12/20 Clavulanate Potassium PO 0947 Apixaban 5 MG BID 12/15 1156 AC 12/20 PO 0947 Aspirin Buffered 81 MG Q48 12/15 1200 AC 12/19 PO 0904 Azithromycin 500 MG DAILY 12/15 1046 DC 12/19 Dextrose/Water 250 ML IV 0905 Ceftriaxone Sodium 1,000 MG DAILY 12/15 1047 DC 12/19 IV 0904 Digoxin 0.125 MG 1700 12/18 1700 AC 12/19 PO 2044 Diltiazem HCl 240 MG DAILY 12/16 1000 AC 12/20 PO 0947 Furosemide 80 MG DAILY 12/20 1000 CAN PO Furosemide 80 MG QAM 12/16 1000 AC 12/20 PO 0947 Nystatin 1 FRANCA TID 12/16 1600 AC 12/20 TOP 1002 Omeprazole 40 MG DAILY AC 12/15 1158 AC 12/20 PO 0531 Polycarbophil 625 MG QPM 12/15 2200 AC 12/19 PO 2042 Potassium Chloride 20 MEQ DAILY 12/16 1000 AC 12/20 PO 0947 Prednisone 60 MG DAILY 12/19 1000 AC 12/20 PO 0948 Tiotropium [place] 1 PUF DAILY 12/16 1000 AC 12/20 INH 0948 Last 24 Hrs of Lab/Ash Results Last 24 Hrs of Labs/Mics: Laboratory Tests 12/20/17 0632: Anion Gap 9, Estimated GFR > 60, BUN/Creatinine Ratio 62.2 H, CBC w Diff NO MAN DIFF REQ, RBC 3.64 L, MCV 96.4 H, MCH 30.7, MCHC 31.8 L, RDW 17.9 H, MPV 8.7 , Gran % 81.2 H, Lymphocytes % 7.2 L, Monocytes % 11.4 H, Eosinophils % 0.1, Basophils % 0.1, Absolute Granulocytes 9.6 H, Absolute Lymphocytes 0.9 L, Absolute Monocytes 1.4 H, Absolute Eosinophils 0, Absolute Basophils 0 Assessment/Plan Assessment: 87-year-old gentleman with a significant respiratory medical history including COPD on 3 L oxygen, obstructive sleep apnea noncompliant with CPAP, cardiac history of aortic valve replacement 2012 due to severe aortic stenosis, atrial fibrillation requiring ablation 2012 and now on a Elliquis, hypertension admitted for acute on chronic hypercarbic and hypoxic respiratory failure with admission blood gas remarkable for PCO2 of 87 and a pH of 7.8. Chest x-ray was suggestive of community-acquired pneumonia and edema. Impression * Acute hypoxic hypercarbic respiratory failure. Multifactorial given the patient history of COPD and noncompliance with his CPAP for his obstructive sleep apnea. Given the body habitus most likely patient also has an element of obesity hypoventilation syndrome. His condition was most likely exacerbated by pneumonia as evident by x-ray finding and a leukocytosis on presentation. * Community-acquired pneumonia. * COPD exacerbation. * Acute kidney injury. * History of chronic diseases: Hypertension, heart failure with preserved ejection fraction, COPD, ELIZ. Plan Patient is on day 6 of hospitalization for the acute on chronic hypoxic hypercarbic respiratory failure and COPD exacerbation in the setting of pneumonia. He was started on Solu-Medrol IV and now transitioned to oral prednisone, his antibiotic has now been switched to Augmentin today to complete a 10 day course. His chest x-ray was also suggestive of pulmonary edema and patient is on furosemide therapy. Even though patient states that his breathing is much better, he continues to be on high flow nasal oxygen supplementation at times up to 60%. On Physical examination, he did not exhibit any wheezing but he was rhonchorous. Per pulmonology recommendation, will will initiate Mucomyst and also obtain a chest x-ray to assess interval changes since the last image that was done about 5 days ago. His O2 sats on high flow are stable, he is not exhibiting any altered mental status and his last blood gas was within normal limits, therefore no need for repeat ABG. His rising bicarbonate is most likely suggestive of contraction alkalosis from the furosemide therapy rather than worsening hypercarbia. We will hold off on furosemide for now. Will continue his digoxin and apixaban, Will wait further cardiology recommendations on optimal diuresis therapy. A physical therapy consult has been ordered for the patient, at minimal patient should attempt out of bed to chair status. Problem List: 1. COPD exacerbation 2. Acute and chronic respiratory failure with hypoxia Pain Ratin Pain Location: none Pain Goal: Remain pain free Pain Plan: per pathway Tomorrow's Labs & Rationales: BEP: METABOLIC ALKALOSIS Ozzie Galeano MD 12/20/17 1057: Attending MD Review Statement Attending Statement Attending MD Statement: examined this patient, discuss w/resident/PA/PLANER FEEDER, agreed w/resident/PA/PLANER FEEDER, reviewed EMR data (avail), discussed with nursing, discussed with case mgmt, amended to note Attending Assessment/Plan: Patient seen and examined lying in bed. He continues to require BiPAP therapy on and off during the day. He is currently on BiPAP therapy. He was upset that he was not taken off it earlier on so that he could have breakfast. Reports feeling more comfortable when he is on BiPAP therapy. On examination he appears comfortable when he is on BiPAP therapy. His lips continue to have bluish discoloration. Heart sounds are irregular. Breath sounds are congested. Abdomen is obese, soft and nontender. He has trace peripheral edema. Laboratory data shows elevated sodium this morning. Creatinine has improved however BUN remains elevated and serum bicarb is worsening. Recommendations: -Continue bronchodilator therapies. Continue systemic steroid therapy orally. O2 BiPAP therapy as recommended by the pulmonology service. -He appears to be developing a contraction alkalosis. Recommend holding diuretics today. Repeat serum chemistry in a.m. to evaluate improvement of his sodium and BUN. Allow patient to hydrate orally. Hold off intravenous hydration for now. -Physical therapy evaluation to mobilize patient.
[2017-12-20 08:20] LABS: ABSOLUTE BASOPHIL COUNT 0 /CUMM (0.0-0.2); ABSOLUTE EOSINOPHIL COUNT 0 /CUMM (0.0-0.7); ABSOLUTE GRANULOCYTE CT 9.6 /CUMM (1.4-6.5); ABSOLUTE LYMPH COUNT 0.9 /CUMM (1.2-3.4); ABSOLUTE MONOCYTE COUNT 1.4 /CUMM (0.10-0.60); BASOPHIL % 0.1 % (0.0-2.0); EOSINOPHIL % 0.1 % (0-5); GRANULOCYTE % 81.2 % (42.2-75.2); MEAN CORPUSCULAR HGB 30.7 PG (27.0-31.0); MEAN CORPUSCULAR HGB CONC 31.8 G/DL (33.0-37.0); MEAN CORPUSCULAR VOLUME 96.4 FL (80.0-94.0); MEAN PLATELET VOLUME 8.7 FL (7.4-10.4); PLATELET COUNT 145 /CUMM (130-400); RBC DISTRIBUTION WIDTH 17.9 % (11.5-14.5); RED BLOOD CELL CT 3.64 /CUMM (4.70-6.10); WHITE BLOOD CELL COUNT 11.8 /CUMM (4.8-10.8)
--- NOTE | 2017-12-20 11:47 | PN- Cardiology ---
Subjective Subjective: Comfortable on BiPAP. No chest pain. Objective Vital Signs and I&Os Vital Signs Date Time Temp Pulse Resp B/P B/P Pulse O2 O2 Flow FiO2 Mean Ox Delivery Rate 12/20 0830 86 95 12/20 0800 86 95 12/20 0648 96.6 86 20 140/68 93 BIPAP 12/20 0543 73 94 12/20 0328 95 BIPAP 40% 12/20 0309 77 95 12/20 0014 71 93 12/19 2241 98.4 97 22 134/64 95 Nasal Cannula 12/19 2225 82 95 12/19 2215 94 Nasal 60% Cannula 12/20 2043 85 134/70 12/19 2042 95 Nasal 60% Cannula 12/19 2009 88 91 12/19 1602 73 93 12/19 1601 93 BIPAP 40% 12/19 1436 98.3 78 22 130/60 92 BIPAP 12/19 1322 86 92 12/19 1148 80 94 Intake & Output 12/20 1600 12/20 0800 12/20 0000 12/19 1600 12/19 0800 12/19 0000 Intake Total 360 360 600 550 Output Total 425 750 800 500 450 Balance -65 -390 -200 50 -450 Intake, IV 250 Intake, Oral 360 360 350 550 Number 1 Bowel Movements Output, Urine 425 750 800 500 450 Physical Exam: General: no apparent distress. Alert. On Bipap. Eyes: No obvious scleral icterus. HEENT: No jugular venous distention or abnormal jugular venous pulsations. Cardiovascular: Normal intensity S1/S2. Irregular; 3/6 systolic murmur Respiratory: mildly decreased air entry Abdomen: Soft, nontender with no guarding or rebound tenderness. Musculoskeletal: Trace edema Skin: warm Neurologic: No gross focal deficits noted. Current Medications: Current Medications Sig/Migue Start time Last Medication Dose Route Stop Time Status Admin Acetylcysteine 2 ML BID 12/20 1119 AC INH Albuterol Sulfate 3 ML EVERY 4 HRS/AWAKE 12/16 1600 AC 12/20 INH 0830 Amoxicillin/ 875 MG Q12 12/20 1000 AC 12/20 Clavulanate Potassium PO 0947 Apixaban 5 MG BID 12/15 1156 AC 12/20 PO 0947 Aspirin Buffered 81 MG Q48 12/15 1200 AC 12/19 PO 0904 Digoxin 0.125 MG 1700 12/18 1700 AC 12/19 PO 2044 Diltiazem HCl 240 MG DAILY 12/16 1000 AC 12/20 PO 0947 Furosemide 80 MG DAILY 12/20 1000 CAN PO Furosemide 80 MG QAM 12/16 1000 DC 12/20 PO 0947 Nystatin 1 FRANCA TID 12/16 1600 AC 12/20 TOP 1002 Omeprazole 40 MG DAILY AC 12/15 1158 AC 12/20 PO 0531 Polycarbophil 625 MG QPM 12/15 2200 AC 12/19 PO 2042 Potassium Chloride 20 MEQ DAILY 12/16 1000 AC 12/20 PO 0947 Prednisone 60 MG DAILY 12/19 1000 AC 12/20 PO 0948 Tiotropium [place] 1 PUF DAILY 12/16 1000 AC 12/20 INH 0948 Results Last 48 Hrs of Labs/Mics: Laboratory Tests 12/20/17 0632: Anion Gap 9, Estimated GFR > 60, BUN/Creatinine Ratio 62.2 H, CBC w Diff NO MAN DIFF REQ, RBC 3.64 L, MCV 96.4 H, MCH 30.7, MCHC 31.8 L, RDW 17.9 H, MPV 8.7 , Gran % 81.2 H, Lymphocytes % 7.2 L, Monocytes % 11.4 H, Eosinophils % 0.1, Basophils % 0.1, Absolute Granulocytes 9.6 H, Absolute Lymphocytes 0.9 L, Absolute Monocytes 1.4 H, Absolute Eosinophils 0, Absolute Basophils 0 12/19/17 0623: Anion Gap 10, Estimated GFR > 60, BUN/Creatinine Ratio 50.0 H Recent Imaging Studies: Patient not currently on telemetry Assessment/Plan Assessment/Plan 1. Hypercarbic respiratory insufficiency 2. COPD on home oxygen 3. 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 Acute on chronic heart failure with preserved ejection fraction 6. Sleep apnea 7. Pulmonary HTN 8. Known history of venous insufficiency Currently on BiPAP. Creatinine has been trending down; I do not think he is hypovolemic and would continue the oral Lasix dosing but I do not think he needs intravenous diuresis at this time. Continue oral anticoagulation. Bobby Benavidez MD [facility] Continue telemetry? Not applicable
--- NOTE | 2017-12-20 12:19 | PN- Pulmonary ---
Subjective HPI/Critical Care Issues: pt seen and examined on bipap overall feeling better still bipap/high flow dependent Objective Current Medications: Current Medications Sig/Migue Start time Last Medication Dose Route Stop Time Status Admin Acetylcysteine 2 ML BID 12/20 1119 AC INH Albuterol Sulfate 3 ML EVERY 4 HRS/AWAKE 12/16 1600 AC 12/20 INH 0830 Amoxicillin/ 875 MG Q12 12/20 1000 AC 12/20 Clavulanate Potassium PO 0947 Apixaban 5 MG BID 12/15 1156 AC 12/20 PO 0947 Aspirin Buffered 81 MG Q48 12/15 1200 AC 12/19 PO 0904 Digoxin 0.125 MG 1700 12/18 1700 AC 12/19 PO 2044 Diltiazem HCl 240 MG DAILY 12/16 1000 AC 12/20 PO 0947 Furosemide 80 MG DAILY 12/20 1000 CAN PO Furosemide 80 MG QAM 12/16 1000 DC 12/20 PO 0947 Nystatin 1 FRANCA TID 12/16 1600 AC 12/20 TOP 1002 Omeprazole 40 MG DAILY AC 12/15 1158 AC 12/20 PO 0531 Polycarbophil 625 MG QPM 12/15 2200 AC 12/19 PO 2042 Potassium Chloride 20 MEQ DAILY 12/16 1000 AC 12/20 PO 0947 Prednisone 60 MG DAILY 12/19 1000 AC 12/20 PO 0948 Tiotropium [place] 1 PUF DAILY 12/16 1000 AC 12/20 INH 0948 Vital Signs & I&O Last 24 Hrs of Vitals and I&O: Vital Signs Date Time Temp Pulse Resp B/P B/P Pulse O2 O2 Flow FiO2 Mean Ox Delivery Rate 12/20 0830 86 95 12/20 0800 86 95 12/20 0648 96.6 86 20 140/68 93 BIPAP 12/20 0543 73 94 12/20 0328 95 BIPAP 40% 12/20 0309 77 95 12/20 0014 71 93 12/19 2241 98.4 97 22 134/64 95 Nasal Cannula 12/19 2225 82 95 12/19 2215 94 Nasal 60% Cannula 12/194 85 134/70 12/19 2042 95 Nasal 60% Cannula 12/19 2009 88 91 12/19 1602 73 93 12/19 1601 93 BIPAP 40% 12/19 1436 98.3 78 22 130/60 92 BIPAP 12/19 1322 86 92 Intake & Output 12/20 1600 12/20 0800 12/20 0000 Intake Total 360 360 Output Total 300 425 750 Balance -300 -65 -390 Intake, Oral 360 360 Output, Urine 300 425 750 Exam Other Physical Findings: gen awake and alert, mild conversational dyspnea heent nasal cannula cvs s1, s2, irregular lungs diminished bs bases given body habitus abd obese ext with chronic venous stasis Results Last 24 Hrs of Lab Results: Laboratory Tests 12/20/17 0632: Anion Gap 9, Estimated GFR > 60, BUN/Creatinine Ratio 62.2 H, CBC w Diff NO MAN DIFF REQ, RBC 3.64 L, MCV 96.4 H, MCH 30.7, MCHC 31.8 L, RDW 17.9 H, MPV 8.7 , Gran % 81.2 H, Lymphocytes % 7.2 L, Monocytes % 11.4 H, Eosinophils % 0.1, Basophils % 0.1, Absolute Granulocytes 9.6 H, Absolute Lymphocytes 0.9 L, Absolute Monocytes 1.4 H, Absolute Eosinophils 0, Absolute Basophils 0 Impression/Plan Impression/Plan Impression/Plan: Impression 86 year old man * Dyspnea - likely acute exacerbation of COPD accompanied by a possible tracheobronchitis and also underlying acute on chronic chf exacerbation in setting of severe (AVR 2012) * deconditioning/obesity * ELIZ * pulmonary htn Plan -cxr today -mucomyst nebulized bid for 72 hrs -f/u cardiology, daily weights, diuresis -bipap and high flow alternate -prednisone taper as ordered -monitor finger sticks -cont eliquis -course of abx - on Augmentin -rate control -TRC/Nebs -Incentive spirometry DVT prophylaxis at all times (on Eliquis)
[2017-12-20 14:33] VITALS: BP 132/76
--- NOTE | 2017-12-20 15:04 | RADIOLOGY REPORT ---
EXAMINATION: XR PORTABLE CHEST CLINICAL INFORMATION: Worsening edema versus pneumonia. Continued shortness of breath. COMPARISON: Portal chest x-ray dated 12/15/2017. TECHNIQUE: Portable frontal view of the chest was obtained. FINDINGS: There is interval decrease in the density present in the right lung base and upper portion of the left hemithorax by comparison with the prior study, with overall decreased pulmonary interstitial markings/peribronchial cuffing by direct comparison with the prior study. The findings are suggestive of interval decreasing pulmonary edema. No new focal areas of airspace opacification are present. The median sternotomy wires are stable compared to the prior study. IMPRESSION: Findings consistent with decreasing pulmonary edema when directly compared with the previous study of 12/15/2017.
[2017-12-20 22:57] VITALS: BP 140/70
[2017-12-21 06:56] VITALS: BP 160/70
--- NOTE | 2017-12-21 08:24 | PN- Housestaff ---
[facility]24: Subjective Follow-up For: -Acute hypoxic hypercarbic respiratory failure -Atrial fibrillation with rapid ventricular response -CAP Subjective: Afebrile on steroid, hypertensive up to 160/70, heart rate in the 70s, and saturating lower 90 on 55% high flow oxygen. Through the night the patient was on BiPAP. His cough improved and sputum production decreased in the amount and frequency. Patient denies any other current active complaints Review of Systems Constitutional: Reports: no symptoms, see HPI. Objective Last 24 Hrs of Vital Signs/I&O Vital Signs Date Time Temp Pulse Resp B/P B/P Pulse O2 O2 Flow FiO2 Mean Ox Delivery Rate 12/21 0850 92 Nasal 55% Cannula 12/21 0845 76 95 12/21 0656 97.4 78 20 160/70 93 BIPAP 12/21 0045 89 92 12/21 0000 96 BIPAP 40% 12/20 2257 98.0 88 20 140/70 95 Nasal Cannula 12/20 2221 83 92 12/20 2050 90 88 12/20 1905 95 Nasal 60% Cannula 12/20 1811 76 132/76 12/20 1810 95 Nasal 60% Cannula 12/20 1643 86 91 12/20 1640 91 BIPAP 40% 12/20 1600 91 BIPAP 40% 12/20 1440 76 91 12/20 1433 96.9 81 20 132/76 90 BIPAP 12/20 1255 67 92 Intake & Output 12/21 1600 12/21 0800 12/21 0000 Intake Total 240 680 Output Total 400 500 Balance -160 180 Intake, Oral 240 680 Number 1 1 Bowel Movements Output, Urine 400 500 Physical Exam General Appearance: Alert, Oriented X3, Cooperative, No Acute Distress Skin: No Rashes Cardiovascular: irregular heart rhythem, 3/6 systolic murmur most likely . Lungs: clear auscultation over upper lung bilaterally, diminished air entry with mild crackles over lung bases bilaterally. No wheezing Abdomen: Soft, No Tenderness Neurological: Normal Speech Extremities: No Clubbing, No Cyanosis, No Edema, bilateral lower extremity venous stasis changes Current Medications: Current Medications Sig/Migue Start time Last Medication Dose Route Stop Time Status Admin Acetylcysteine 2 ML BID 12/20 1119 AC 12/21 INH 0834 Albuterol Sulfate 3 ML EVERY 4 HRS/AWAKE 12/16 1600 AC 12/21 INH 0834 Amoxicillin/ 875 MG Q12 12/20 1000 DC 12/20 Clavulanate Potassium PO 2020 Apixaban 5 MG BID 12/15 1156 AC 12/20 PO 202 Aspirin Buffered 81 MG Q48 12/15 1200 AC 12/19 PO 0904 Dextrose/Water 500 ML Q13H 12/21 0945 AC IV 12/23 2003 Digoxin 0.125 MG 1700 12/18 1700 AC 12/20 PO 1811 Diltiazem HCl 240 MG DAILY 12/16 1000 AC 12/20 PO 0947 Furosemide 80 MG QAM 12/16 1000 DC 12/20 PO 0947 Nystatin 1 FRANCA TID 12/16 1600 DC 12/20 TOP 1002 Omeprazole 40 MG DAILY AC 12/15 1158 AC 12/21 PO 0629 Polycarbophil 625 MG QPM 12/15 2200 AC 12/20 PO 2020 Potassium Chloride 20 MEQ DAILY 12/16 1000 AC 12/20 PO 0947 Prednisone 60 MG DAILY 12/19 1000 AC 12/20 PO 0948 Tiotropium [place] 1 PUF DAILY 12/16 1000 AC 12/20 INH 0948 Last 24 Hrs of Lab/Ash Results Last 24 Hrs of Labs/Mics: Laboratory Tests 12/21/17 0635: Anion Gap 8, Estimated GFR > 60, BUN/Creatinine Ratio 56.3 H Assessment/Plan Assessment: Briefly about the patient since admission, he was admitted on December 15 for dyspnea, he was found to have acute hypoxic hypercarbic respiratory failure which most likely secondary to multifactorial underlying conditions includes COPD, A. fib with RVR, and CAP. On the day of admission he was given extra dose of Lasix given pulmonary edema on x-ray, he was started ceftriaxone and azithromycin for pneumonia that was seen on x-ray, and he was started on IV steroid for possible COPD exacerbation. He was found to have abnormal swallowing on modified barium swallow for which she was started on puree and nectar. Assessment The patient improved significantly since admission. However he continue to require respiratory support with either BiPAP or high flow oxygen. Chest x-ray yesterday revealed pulmonary edema improvement and no sign of pneumonia worsening. Today patient finished 7 days of antibiotic for pneumonia. Heartrate is controlled since we added digoxin. COPD seems to be controlled given no wheezing on exam, currently is on oral prednisone. Sodium is increasing since March 18th, currently his sodium is 148 up from 140 on admission, this most likely secondary to being nothing by mouth during the first 2 days, thickened water after full swallow eval, and Lasix use. Bicarbonate continue to increase which most likely secondary to Lasix use( contraction alkalosis), we will hold Lasix today and repeat bicarbonate level tomorrow. Plan * For CAP we will DC antibiotic, already finished 7 days course. * For aspiration, we repeat swallow eval. For now we will continue current diet order * COPD exacerbation, improved symptom hannah, but continued to require BiPAP and high flow oxygen. We will discuss with pulmonology if patient would benefit from IV Solu-Medrol again * For A. fib: continue Cardizem ER 240, digoxin 0.125, eliquis, ASA and Tele monitoring * LEXIE: Resolved * For HFpEF, will hold Lasix today given contraction alkalosis and hyponatremia * Hypernatremia: Calculated volume deficit is 3.2 free water.To avoid pulm edema we will start pt on D5W at 70 of 60 mL per hour(half required rate). * We will continue BiPAP as needed * We will initiate discussion about CODE STATUS. FC Nothing by mouth for BiPAP and pending swallowing eval DVT PPx with eliquis Problem List: 1. Pulmonary edema 2. Atrial fibrillation 3. COPD exacerbation 4. Acute and chronic respiratory failure with hypoxia Pain Ratin Pain Location: N/A Pain Goal: Remain pain free Pain Plan: See A&P Tomorrow's Labs & Rationales: BEP to follow Na+ Froylan COLES,Ozzie 12/21/17 1143: Attending MD Review Statement Attending Statement Attending MD Statement: examined this patient, discuss w/resident/PA/DIRECTOR SALES AND MARKETING, agreed w/resident/PA/DIRECTOR SALES [employer] MARKETING, reviewed EMR data (avail), discussed with nursing, discussed with case mgmt, amended to note Attending Assessment/Plan: Patient seen and examined. Per nursing staff patient required BiPAP therapy essentially all through the day yesterday with brief periods of therapy to allow him to eat. He was placed on high flow oxygen briefly this morning however he desaturated on this after being moved for routine nursing care. He has currently been placed back on BiPAP therapy. He reports feeling better however this is not consistent with his overall clinical picture. He is much more comfortable when on BiPAP therapy. Lips remained cyanotic. Remains Irregular. No Jugular Venous Distention. He Has Fair Entry Bilaterally with No Added Sounds. Abdomen Is Obese Soft and Nontender. He Has Trace Peripheral Edema. Chest x-ray done yesterday showed decreasing pulmonary edema compared to previous imaging. Recommendations: -Continue bronchodilator therapy. Continue oral steroid therapy. -Follow-up with the pulmonology service regarding BiPAP management. Consider rechecking an ABG to determine his CO2 status. -His elevated bicarb is likely combination of compensation for respiratory acidosis and contraction alkalosis from diuretics. -Sodium level remains elevated. This orally take his poor as he is on thickened fluid. Will follow up with the speech therapist to determine if he is diet can be advanced so that he can take in more [place]. The rising hypernatremia can worsen his mental status. If diet is unable to be advanced may consider starting patient on D5W and slowly correct his free water deficit. -Prognosis is guarded. Follow-up with the patient's pediatric anesthesiologist regarding patient's CODE STATUS and previously stated advanced directives.
--- NOTE | 2017-12-21 10:28 | PN- Cardiology ---
Subjective Subjective: The patient remains on BiPAP. He still complains of shortness of breath but denies chest pain. Review of Systems: Eyes no blurred or double vision Ears no deafness or ringing Nose and throat no recurrent sinusitis Lungs per history of present illness Heart per history of present illness Abdomen no nausea vomiting Musculoskeletal occasional muscle and joint pains Psych no anxiety or depression Neuro without recurrent headache or seizures Endocrine no heat or cold intolerance Objective Vital Signs and I&Os Vital Signs Date Time Temp Pulse Resp B/P B/P Pulse O2 O2 Flow FiO2 Mean Ox Delivery Rate 12/21 1002 80 90 12/21 0850 92 Nasal 55% Cannula 12/21 0845 76 95 12/21 0656 97.4 78 20 160/70 93 BIPAP 12/21 0045 89 92 12/21 0000 96 BIPAP 40% 12/20 2257 98.0 88 20 140/70 95 Nasal Cannula 12/20 2221 83 92 12/20 2050 90 88 12/20 1905 95 Nasal 60% Cannula 12/20 1811 76 132/76 12/20 1810 95 Nasal 60% Cannula 12/20 1643 86 91 12/20 1640 91 BIPAP 40% 12/20 1600 91 BIPAP 40% 12/20 1440 76 91 12/20 1433 96.9 81 20 132/76 90 BIPAP 12/20 1255 67 92 Intake & Output 12/21 1600 12/21 0800 12/21 0000 12/20 1600 12/20 0800 12/20 0000 Intake Total 240 680 680 360 360 Output Total 055 281 3939 425 750 Balance -160 180 -1070 -65 -390 Intake, Oral 240 680 680 360 360 Number 1 1 Bowel Movements Output, Urine 146 048 2659 425 750 Physical Exam: Patient is a well-developed obese male appearing in no acute distress HEENT is unremarkable Neck is supple there is no JVD Lungs decreased air entry bilaterally Heart regular rhythm S1 and S2 are normal no murmurs gallops or rubs Abdomen bowel sounds positive Extremities without edema Current Medications: Current Medications Sig/Migue Start time Last Medication Dose Route Stop Time Status Admin Acetylcysteine 2 ML BID 12/20 1119 AC 12/21 INH 0834 Albuterol Sulfate 3 ML EVERY 4 HRS/AWAKE 12/16 1600 AC 12/21 INH 0834 Amoxicillin/ 875 MG Q12 12/20 1000 DC 12/20 Clavulanate Potassium PO 2020 Apixaban 5 MG BID 12/15 1156 AC 12/20 PO 202 Aspirin Buffered 81 MG Q48 12/15 1200 AC 12/19 PO 0904 Dextrose/Water 500 ML Q13H 12/21 0945 AC IV 12/23 2003 Digoxin 0.125 MG 1700 12/18 1700 AC 12/20 PO 1811 Diltiazem HCl 240 MG DAILY 12/16 1000 AC 12/20 PO 0947 Furosemide 80 MG QAM 12/16 1000 DC 12/20 PO 0947 Nystatin 1 FRANCA TID 12/16 1600 DC 12/20 TOP 1002 Omeprazole 40 MG DAILY AC 12/15 1158 AC 12/21 PO 0629 Polycarbophil 625 MG QPM 12/15 2200 AC 12/20 PO 202 Potassium Chloride 20 MEQ DAILY 12/16 1000 AC 12/20 PO 0947 Prednisone 60 MG DAILY 12/19 1000 AC 12/20 PO 0948 Tiotropium [place] 1 PUF DAILY 12/16 1000 AC 12/20 INH 0948 Results Last 48 Hrs of Labs/Mics: Laboratory Tests 12/21/17 0635: Anion Gap 8, Estimated GFR > 60, BUN/Creatinine Ratio 56.3 H 12/20/17 0632: Anion Gap 9, Estimated GFR > 60, BUN/Creatinine Ratio 62.2 H, CBC w Diff NO MAN DIFF REQ, RBC 3.64 L, MCV 96.4 H, MCH 30.7, MCHC 31.8 L, RDW 17.9 H, MPV 8.7 , Gran % 81.2 H, Lymphocytes % 7.2 L, Monocytes % 11.4 H, Eosinophils % 0.1, Basophils % 0.1, Absolute Granulocytes 9.6 H, Absolute Lymphocytes 0.9 L, Absolute Monocytes 1.4 H, Absolute Eosinophils 0, Absolute Basophils 0 Recent Imaging Studies: Chest x-ray IMPRESSION: Findings consistent with decreasing pulmonary edema when directly compared with the previous study of 12/15/2017. Assessment/Plan Assessment/Plan 1. Hypercarbic respiratory insufficiency 2. COPD on home oxygen 3. 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 Acute on chronic heart failure with preserved ejection fraction 6. Sleep apnea 7. Pulmonary HTN 8. Known history of venous insufficiency Recommendations 1. Continue current medications including Eliquis for stroke prevention 2. Wean BiPAP as tolerated 3. Continue to monitor renal function. If there is continued signs of improvement would resume outpatient by mouth Lasix Continue telemetry? Not applicable
--- NOTE | 2017-12-21 10:52 | Discharge Summary ---
Visit Information Visit Dates Admission Date: 12/15/17 Discharge Date: 12/24/17 Hospital Course Course Attending Physician: Ozzie Galeano MD Primary Care Physician: Yaw Cason MD Hospital Course: The patient was admitted on December 15 for dyspnea, he was found to have acute hypoxic hypercarbic respiratory failure which most likely secondary to multifactorial underlying conditions includes COPD, A. fib with RVR, and CAP. On the day of admission he was given extra dose of Lasix given pulmonary edema on x-ray, he was started ceftriaxone and azithromycin for pneumonia that was seen on x-ray until finished a course of 7 days, and he was started on IV steroid for possible COPD exacerbation that was later switched to oral steroid taper. He was found to have abnormal swallowing on modified barium swallow for which she was started on puree and nectar. For Afib with RVR the patient was started on digoxin after which his HR became more contolled. The patient improved significantly since admission. However he continue to require respiratory support with either BiPAP or high flow oxygen. He had LEXIE on admission that resolved with avoiding all nephrotoxic medicatoin. Allergies: Coded Allergies: lisinopril (COUGHING 10/21/17) Disposition Summary Disposition Principal Diagnosis: acute hypoxic hypercarbic respiratory failure Additional Diagnosis: Afib with RVR Discharge Disposition: SNF Discharge Instructions General Discharge Information Code Status: Full Code Patient's Diet: puree and nectar. Patient's Activity: as tolerated Follow-Up Instructions/Appts: please follow with PCP within one week Please follow with [facility] within one week Medications at Discharge Discharge Medications: Stop taking the following medications: Nystatin (Nystatin) 100,000 UNIT/GRAM CREAM..G. On the skin THREE TIMES DAILY Qty = 1 Prednisone (Prednisone) 10 MG TABLET ORAL TITRATE Qty = 22 Continue taking these medications: Aspirin (Ecotrin*) 81 MG TABLET.DR 1 Tablet ORAL Every other day Comments: Last Taken:12/23/17 Time:9:11 Furosemide (Furosemide) 40 MG TABLET 2 Tablet ORAL Every Morning Qty = 180 Comments: Last Taken: 12/24/17 Time: 920 Tiotropium [place] (Spiriva) 18 MCG CAP.W.DEV 1 Capsule Inhale through mouth DAILY Qty = 90 Comments: Last Taken: 12/24/17 Time: 921 Losartan Potassium (Losartan Potassium) 50 MG TABLET 1 Tablet ORAL DAILY Qty = 90 Comments: NOT GIVEN IN HOSPITAL Calcitriol (Calcitriol) 0.25 MCG CAPSULE 1 Capsule ORAL DAILY Qty = 90 Comments: NOT GIVEN THIS ADMISSION Clotrimazole/Betamethasone Dip (Clotrimazole-Betamethasone Crm) 1 %-0.05 % CREAM..G. 1 Application On the skin As Directed Qty = 270 Instructions: apply to affected area(s) Comments: NOT GIVEN THIS ADMISSION HAD NYASTATIN POWER 10/26/17 1000 Potassium Chloride (Potassium Chloride) 20 MEQ TAB.ER.PRT 1 Tablet ORAL DAILY Qty = 90 Comments: Last Taken: 12/24/17 Time:09 Omeprazole (Omeprazole) 40 MG CAPSULE. 1 Capsule ORAL DAILY Qty = 90 Comments: Last Taken:12/24/17 Time:06 Denosumab (Prolia) 60 MG/ML SYRINGE 60 Milligram INJECTABLE Q6M Qty = 1 Comments: NOT GIVEN THIS ADMISSION Albuterol Sulfate (Proair Hfa) 90 MCG HFA.AER.AD 2 Puff Inhale through mouth 4XDAILY Qty = 34 Comments: NOT GIVEN THIS ADMISSION Mometasone/Formoterol (Dulera 200 Mcg/5 Mcg Inhaler) 200 MCG-5 MCG/ACTUATION HFA.AER.AD 2 Puff Inhale through mouth TWICE DAILY Comments: NOT GIVEN THIS ADMISSION Cholecalciferol (Vitamin D3) (Vitamin D3) 50,000 UNIT CAPSULE 1 Capsule ORAL EVERY WEDNESDAY Comments: NOT GIVEN THIS ADMISSION Multivit-Min/FA/Lycopen/Lutein (Centrum Silver Men Tablet) 300 MCG-600 MCG-300 MCG TABLET 1 Tablet ORAL DAILY Comments: NOT GIVEN IN HOSPITAL Polycarbophil (Fiber) 625 MG TABLET 1 Tablet ORAL Every night Comments: Last Taken:12/23/17 Time:2057 Calcium (Elemental-Fr Calcarb) (Calcium) 600 MG CALCIUM (1,500 MG) TABLET 2 Tablet ORAL Every night Comments: Last Taken:NOT GIVEN THIS ADMISSION Time: Time: Ferrous Sulfate (Ferrous Sulfate) 325 MG (65 MG IRON) TABLET. 325 Milligram ORAL TWICE DAILY Qty = 60 Comments: NOT GIVEN IN HOSPITAL Apixaban (Eliquis) 5 MG TABLET 5 Milligram ORAL TWICE DAILY Qty = 60 Comments: Last Taken:12/24/17 Time:9 Guaifenesin (Guaifenesin ER) 600 MG TAB.ER.12H 600 Milligram ORAL EVERY 12 HOURS Qty = 10 Comments: NOT GIVEN IN HOSPITAL Diltiazem HCl (Diltiazem 24HR ER) 240 MG CAP.ER.24H 1 Capsule ORAL DAILY Comments: Last Taken: 12/24/17 Time: 09 Start taking the following new medications: Digoxin (Lanoxin) 125 MCG TABLET 0.125 Milligram ORAL 5 PM Qty = 60 No Refills Comments: Last Taken: 12/23/14 Time: 180 Prednisone (Prednisone) 10 MG TABLET 1 Tablet ORAL DAILY Qty = 63 No Refills Instructions: PLEASE TAKE THE MEDICATION THE FOLLOWING 6 TAB FOR 3 DAYS 5 TABS FOR 3 DAYS 4 TABS FOR 3 DAYS 3 TABS FOR 3 DAYS 2 TABS FOR 3 DAYS 1 TAB FOR 3 DAYS. Comments: Last Taken: 12/24/17 60 MG GIVEN Time: 09 Copies To: Yoav COLES,Yaw Wise MD,Tony Jiang; Guillermina COLES,Cody Attending MD Review Statement Documenting Attending: Ozzie Galeano MD Other Findings: Patient is medically stable to be transferred today to the hospital for special care
[2017-12-21 14:23] VITALS: BP 148/56
--- NOTE | 2017-12-21 15:17 | PN- Pulmonary ---
Subjective HPI/Critical Care Issues: pt seen and examined still on bipap no new events Objective Current Medications: Current Medications Sig/Migue Start time Last Medication Dose Route Stop Time Status Admin Acetylcysteine 2 ML BID 12/20 1119 AC 12/21 INH 0834 Albuterol Sulfate 3 ML EVERY 4 HRS/AWAKE 12/16 1600 AC 12/21 INH 1135 Amoxicillin/ 875 MG Q12 12/20 1000 DC 12/20 Clavulanate Potassium PO 202 Apixaban 5 MG BID 12/15 1156 AC 12/21 PO 1028 Aspirin Buffered 81 MG Q48 12/15 1200 AC 12/21 PO 1028 Dextrose/Water 500 ML Q13H 12/21 0945 AC 12/21 IV 12/23 2003 1009 Digoxin 0.125 MG 1700 12/18 1700 AC 12/20 PO 1811 Diltiazem HCl 240 MG DAILY 12/16 1000 AC 12/21 PO 1028 Nystatin 1 FRANCA TID 12/16 1600 DC 12/20 TOP 1002 Omeprazole 40 MG DAILY AC 12/15 1158 AC 12/21 PO 0629 Polycarbophil 625 MG QPM 12/15 2200 AC 12/20 PO 2021 Potassium Chloride 20 MEQ DAILY 12/16 1000 AC 12/21 PO 1028 Prednisone 60 MG DAILY 12/19 1000 AC 12/21 PO 1028 Tiotropium [place] 1 PUF DAILY 12/16 1000 AC 12/21 INH 1030 Vital Signs & I&O Last 24 Hrs of Vitals and I&O: Vital Signs Date Time Temp Pulse Resp B/P B/P Pulse O2 O2 Flow FiO2 Mean Ox Delivery Rate 12/21 1423 97.4 74 22 148/56 94 BIPAP 12/21 1400 90 96 12/21 1151 93 Nasal 55% Cannula 12/21 1150 78 92 12/21 1002 80 90 12/21 0850 92 Nasal 55% Cannula 12/21 0845 76 95 12/21 0800 93 BIPAP 40% 12/21 0656 97.4 78 20 160/70 93 BIPAP 12/21 0045 89 92 12/21 0000 96 BIPAP 40% 12/20 2257 98.0 88 20 140/70 95 Nasal Cannula 12/20 2221 83 92 12/20 2050 90 88 12/20 1905 95 Nasal 60% Cannula 12/20 1811 76 132/76 12/20 1810 95 Nasal 60% Cannula 12/20 1643 86 91 12/20 1640 91 BIPAP 40% 12/20 1600 91 BIPAP 40% Intake & Output 12/21 1600 12/21 0800 12/21 0000 Intake Total 240 680 Output Total 400 500 Balance -160 180 Intake, Oral 240 680 Number 1 1 Bowel Movements Output, Urine 400 500 Exam Other Physical Findings: gen awake and alert, mild conversational dyspnea heent nasal cannula cvs s1, s2, irregular lungs diminished bs bases given body habitus abd obese ext with chronic venous stasis Results Last 24 Hrs of Lab Results: Laboratory Tests 12/21/17 0635: Anion Gap 8, Estimated GFR > 60, BUN/Creatinine Ratio 56.3 H Impression/Plan Impression/Plan Impression/Plan: Impression 86 year old man * Dyspnea - likely acute exacerbation of COPD accompanied by a possible tracheobronchitis and also underlying acute on chronic chf exacerbation in setting of severe (AVR 2012) * deconditioning/obesity * ELIZ * pulmonary htn Plan -cxr improved -mucomyst nebulized bid for 72 hrs -f/u cardiology, daily weights, diuresis -bipap and high flow alternate -prednisone taper as ordered -monitor finger sticks -cont eliquis -course of abx - on Augmentin -rate control -TRC/Nebs -Incentive spirometry DVT prophylaxis at all times (on Eliquis)
[2017-12-21 21:47] VITALS: BP 158/65
[2017-12-22 06:30] VITALS: BP 164/58
--- NOTE | 2017-12-22 08:39 | PN- Housestaff ---
See Addendum Subjective Follow-up For: -Acute hypoxic hypercarbic respiratory failure -Atrial fibrillation with rapid ventricular response -CAP Subjective: Afebrile on steroid, hypertensive up to 160/70, heart rate in the 70s, and saturating lower 92 on 40% BIPAP. His symptom improved however he continued to feel short of breath of BiPAP. He denies any other current active complaints. Review of Systems Constitutional: Reports: see HPI. Objective Last 24 Hrs of Vital Signs/I&O Vital Signs Date Time Temp Pulse Resp B/P B/P Pulse O2 O2 Flow FiO2 Mean Ox Delivery Rate 12/22 1000 94 12/22 0846 96 Nasal 55% Cannula 12/22 0846 96 12/22 0800 92 BIPAP 40% 12/22 0630 97.4 71 22 164/58 96 12/22 0456 57 97 12/22 0041 88 94 12/22 0000 94 BIPAP 40% 12/21 2220 84 94 12/21 2147 98.6 63 22 158/65 91 12/21 2013 88 92 12/21 1919 93 Nasal 55% Cannula 12/21 1751 78 160/70 12/21 1743 94 Nasal 55% Cannula 12/21 1619 78 91 12/21 1600 91 BIPAP 40% 12/21 1423 97.4 74 22 148/56 94 BIPAP 12/21 1400 90 96 12/21 1151 93 Nasal 55% Cannula 12/21 1150 78 92 Intake & Output 12/22 1600 12/22 0800 12/22 0000 Intake Total 240 320 Output Total 475 250 Balance -235 70 Intake, Oral 240 320 Number 1 Bowel Movements Output, Urine 475 250 Physical Exam General Appearance: Alert, Oriented X3, Cooperative, No Acute Distress Skin: No Rashes HEENT: Atraumatic, PERRLA, EOMI, Mucous Membr. moist/pink Neck: No JVD Cardiovascular: irregular, 3/6 pansystolic murmur Lungs: mild decrease air entry espically over lung base b/l. no wheezing Abdomen: Soft, No Tenderness Neurological: Normal Speech Extremities: No Clubbing, No Cyanosis, No Edema Current Medications: Current Medications Sig/Migue Start time Last Medication Dose Route Stop Time Status Admin Acetylcysteine 2 ML BID 12/20 1119 AC 12/22 INH 0820 Albuterol Sulfate 3 ML EVERY 4 HRS/AWAKE 12/16 1600 AC 12/22 INH 1131 Apixaban 5 MG BID 12/15 1156 AC 12/22 PO 0906 Aspirin Buffered 81 MG Q48 12/15 1200 AC 12/21 PO 1028 Dextrose/Water 500 ML Q13H 12/21 0945 AC 12/22 IV 12/23 2003 0244 Digoxin 0.125 MG 1700 12/18 1700 AC 12/21 PO 1751 Diltiazem HCl 240 MG DAILY 12/16 1000 AC 12/22 PO 0903 Omeprazole 40 MG DAILY AC 12/15 1158 AC 12/22 PO 0903 Patient Medication 1 ED ONE ONE 12/21 1700 DC 12/21 Teaching ED 12/21 1701 1752 Polycarbophil 625 MG QPM 12/15 2200 AC 12/21 PO 2335 Potassium Chloride 20 MEQ DAILY 12/16 1000 AC 12/22 PO 0903 Prednisone 60 MG DAILY 12/19 1000 AC 12/22 PO 0903 Tiotropium [place] 1 PUF DAILY 12/16 1000 AC 12/22 INH 0907 Last 24 Hrs of Lab/Ash Results Last 24 Hrs of Labs/Mics: Laboratory Tests 12/22/17 0635: Anion Gap 3 L, Estimated GFR > 60, BUN/Creatinine Ratio 61.4 H Assessment/Plan Assessment: The patient improved significantly since admission. However he continue to require respiratory support with either BiPAP or high flow oxygen. The patient finished 7 days of antibiotic for pneumonia. Heartrate is controlled since we added digoxin currently on 0.125 mg digoxin daily. COPD seems to be controlled given no wheezing on exam, currently is on oral prednisone. After modified barium swallow was recommended to start patient on thickened water. Bicarbonate continue to increase today is 47. Plan * For CAP, finished course of antibiotic, we will repeat chest x-ray looking for worsening * For aspiration, we'll repeat swallow eval. For now we will continue current diet order * COPD exacerbation, improved symptom hannah, but continued to require BiPAP and high flow oxygen. Given the elevated bicarbonate we will discuss with pulmonology if the patient will benefit from diamox. * For A. fib: continue Cardizem ER 240, digoxin 0.125, eliquis, ASA and Tele monitoring * LEXEI: Resolved * For HFpEF, we will continue Lasix * Hypernatremia: Resolved * We will continue BiPAP as needed FC We will continue thickened fluid DVT PPx with eliquis Problem List: 1. Pulmonary edema 2. Atrial fibrillation 3. COPD exacerbation Pain Ratin Pain Location: na Pain Goal: Remain pain free Pain Plan: See A&P Tomorrow's Labs & Rationales: see A&P
--- NOTE | 2017-12-22 10:51 | PN- Pulmonary ---
Subjective HPI/Critical Care Issues: pt seen and examined took a break from bipap still with anxiety/dyspnea phlegm reduced Objective Current Medications: Current Medications Sig/Migue Start time Last Medication Dose Route Stop Time Status Admin Acetylcysteine 2 ML BID 12/20 1119 AC 12/22 INH 0820 Albuterol Sulfate 3 ML EVERY 4 HRS/AWAKE 12/16 1600 AC 12/22 INH 0819 Apixaban 5 MG BID 12/15 1156 AC 12/22 PO 0906 Aspirin Buffered 81 MG Q48 12/15 1200 AC 12/21 PO 1028 Dextrose/Water 500 ML Q13H 12/21 0945 AC 12/22 IV 12/23 2003 0244 Digoxin 0.125 MG 1700 12/18 1700 AC 12/21 PO 1751 Diltiazem HCl 240 MG DAILY 12/16 1000 AC 12/22 PO 0903 Omeprazole 40 MG DAILY AC 12/15 1158 AC 12/22 PO 0903 Patient Medication 1 ED ONE ONE 12/21 1700 DC 12/21 Teaching ED 12/21 1701 1752 Polycarbophil 625 MG QPM 12/15 2200 AC 12/21 PO 2335 Potassium Chloride 20 MEQ DAILY 12/16 1000 AC 12/22 PO 0903 Prednisone 60 MG DAILY 12/19 1000 AC 12/22 PO 0903 Tiotropium [place] 1 PUF DAILY 12/16 1000 AC 12/22 INH 0907 Vital Signs & I&O Last 24 Hrs of Vitals and I&O: Vital Signs Date Time Temp Pulse Resp B/P B/P Pulse O2 O2 Flow FiO2 Mean Ox Delivery Rate 12/22 0846 96 Nasal 55% Cannula 12/22 0846 96 12/22 0630 97.4 71 22 164/58 96 12/22 0456 57 97 12/22 0041 88 94 12/22 0000 94 BIPAP 40% 12/21 2220 84 94 12/21 2147 98.6 63 22 158/65 91 12/21 2012 88 92 12/21 1919 93 Nasal 55% Cannula 12/21 1751 78 160/70 12/21 1743 94 Nasal 55% Cannula 12/21 1619 78 91 12/21 1600 91 BIPAP 40% 12/21 1423 97.4 74 22 148/56 94 BIPAP 12/21 1400 90 96 12/21 1151 93 Nasal 55% Cannula 12/21 1150 78 92 Intake & Output 12/22 1600 12/22 0800 12/22 0000 Intake Total 240 320 Output Total 475 250 Balance -235 70 Intake, Oral 240 320 Number 1 Bowel Movements Output, Urine 475 250 Exam Other Physical Findings: gen awake and alert, mild conversational dyspnea heent bipap cvs s1, s2, irregular lungs diminished bs bases given body habitus abd obese ext with chronic venous stasis Results Last 24 Hrs of Lab Results: Laboratory Tests 12/22/17 0635: Anion Gap 3 L, Estimated GFR > 60, BUN/Creatinine Ratio 61.4 H Impression/Plan Impression/Plan Impression/Plan: Impression 86 year old man * Dyspnea - likely acute exacerbation of COPD accompanied by a possible tracheobronchitis and also underlying acute on chronic chf exacerbation in setting of severe (AVR 2012) * deconditioning/obesity * ELIZ * pulmonary htn Plan -improved phlegm, continue mucomyst nebulized bid for 72 hrs total -f/u cardiology, daily weights, diuresis -bipap and high flow alternate, can try nasal cannula pendant with time -prednisone taper as ordered -monitor finger sticks -cont eliquis -course of abx - on Augmentin -rate control -TRC/Nebs -Incentive spirometry DVT prophylaxis at all times (on Eliquis)
--- NOTE | 2017-12-22 13:12 | PN- Cardiology ---
Subjective Subjective: Remains comfortable on BiPAP. Objective Vital Signs and I&Os Vital Signs Date Time Temp Pulse Resp B/P B/P Pulse O2 O2 Flow FiO2 Mean Ox Delivery Rate 12/22 1000 94 12/22 0846 96 Nasal 55% Cannula 12/22 0846 96 12/22 0800 92 BIPAP 40% 12/22 0630 97.4 71 22 164/58 96 12/22 0456 57 97 12/22 0041 88 94 12/22 0000 94 BIPAP 40% 12/21 2220 84 94 12/21 2147 98.6 63 22 158/65 91 12/21 2012 88 92 12/21 1919 93 Nasal 55% Cannula 12/21 1751 78 160/70 12/21 1743 94 Nasal 55% Cannula 12/21 1619 78 91 12/21 1600 91 BIPAP 40% 12/21 1423 97.4 74 22 148/56 94 BIPAP 12/21 1400 90 96 Intake & Output 12/22 1600 12/22 0800 12/22 0000 12/21 1600 12/21 0800 12/21 0000 Intake Total 240 320 720 240 680 Output Total 475 250 525 400 500 Balance -235 70 195 -160 180 Intake, IV 240 Intake, Oral 240 320 480 240 680 Number 1 1 1 1 Bowel Movements Output, Urine 475 250 525 400 500 Physical Exam: General: no apparent distress. Alert. On Bipap. Eyes: No obvious scleral icterus. HEENT: No jugular venous distention or abnormal jugular venous pulsations. Cardiovascular: Normal intensity S1/S2. Irregular; 3/6 systolic murmur Respiratory: mildly decreased air entry Abdomen: Soft, nontender with no guarding or rebound tenderness. Musculoskeletal: Trace edema Skin: warm Neurologic: No gross focal deficits noted. Current Medications: Current Medications Sig/Migue Start time Last Medication Dose Route Stop Time Status Admin Acetylcysteine 2 ML BID 12/20 1119 AC 12/22 INH 0820 Albuterol Sulfate 3 ML EVERY 4 HRS/AWAKE 12/16 1600 AC 12/22 INH 1131 Apixaban 5 MG BID 12/15 1156 AC 12/22 PO 0906 Aspirin Buffered 81 MG Q48 12/15 1200 AC 12/21 PO 1028 Dextrose/Water 500 ML Q13H 12/21 0945 AC 12/22 IV 12/23 2003 0244 Digoxin 0.125 MG 1700 12/18 1700 AC 12/21 PO 1751 Diltiazem HCl 240 MG DAILY 12/16 1000 AC 12/22 PO 0903 Omeprazole 40 MG DAILY AC 12/15 1158 AC 12/22 PO 0903 Patient Medication 1 ED ONE ONE 12/21 1700 DC 12/21 Teaching ED 12/21 1701 1752 Polycarbophil 625 MG QPM 12/15 2200 AC 12/21 PO 2335 Potassium Chloride 20 MEQ DAILY 12/16 1000 AC 12/22 PO 0903 Prednisone 60 MG DAILY 12/19 1000 AC 12/22 PO 0903 Tiotropium [place] 1 PUF DAILY 12/16 1000 AC 12/22 INH 0907 Results Last 48 Hrs of Labs/Mics: Laboratory Tests 12/22/17 0635: Anion Gap 3 L, Estimated GFR > 60, BUN/Creatinine Ratio 61.4 H 12/21/17 0635: Anion Gap 8, Estimated GFR > 60, BUN/Creatinine Ratio 56.3 H Assessment/Plan Assessment/Plan 1. Hypercarbic respiratory insufficiency 2. COPD on home oxygen 3. 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 Acute on chronic heart failure with preserved ejection fraction 6. Sleep apnea 7. Pulmonary HTN 8. Known history of venous insufficiency Currently comfortable on BiPAP. Continue oral anticoagulation. Would resume his oral Lasix. Bobby Benavidez MD [facility] Continue telemetry? No
[2017-12-22 14:17] VITALS: BP 137/72
--- NOTE | 2017-12-22 15:54 | RADIOLOGY REPORT ---
EXAMINATION: XR PORTABLE CHEST CLINICAL INFORMATION: Recent CAP. Assess for infection or effusion. COMPARISON: Chest x-ray 12/20/2017. TECHNIQUE: Portable AP 80 degrees semierect view of the chest was obtained. FINDINGS: The lung combs are poorly expanded bilaterally. There is mild interval increase in the pulmonary interstitial prominence and central pulmonary vessels when compared to the prior study. Patchy opacification in the left upper lobe and right base is redemonstrated, and is slightly more prominent. There may be small pleural effusions. The cardiac silhouette is prominent but similar compared to the prior study. The aortic arch is calcified and unfolded. There are median sternotomy wires. There are degenerative changes of the bilateral sacroiliac joints. IMPRESSION: 1. Interval increase in the interstitial prominence and central pulmonary arteries compared to the prior study, consistent with increasing pulmonary edema. 2. Opacity in the left upper lobe and at the right base may be consistent with evolving consolidation.
[2017-12-22 22:52] VITALS: BP 140/86
[2017-12-23 06:49] VITALS: BP 130/60
--- NOTE | 2017-12-23 09:25 | PN- Housestaff ---
See Addendum Subjective Follow-up For: -Acute hypoxic hypercarbic respiratory failure -Atrial fibrillation with rapid ventricular response -CAP Subjective: Afebrile on steroids, hemodynamically stable, still BiPAP dependent. He reported coughing yellow sputum overnight after which his breathing significantly improved. He is laying on bed on BiPAP looks comfortable, denies any current active complaints. No acute overnight event was reported. Review of Systems Constitutional: Reports: see HPI. Objective Last 24 Hrs of Vital Signs/I&O Vital Signs Date Time Temp Pulse Resp B/P B/P Pulse O2 O2 Flow FiO2 Mean Ox Delivery Rate 12/23 08 93 Nasal 55% Cannula 12/23 0818 88 94 12/23 0649 97.9 84 24 130/60 93 BIPAP 12/23 0048 78 98 12/23 0000 BIPAP 40% 12/22 2252 97.8 73 73 140/86 92 12/22 1900 88 98 12/22 1720 72 92 12/22 1622 93 BIPAP 40% 12/22 1621 74 93 12/22 1609 76 159/72 12/22 1600 BIPAP 40% 12/22 1417 98.4 78 22 137/72 91 BIPAP 12/22 1312 94 12/22 1230 92 Intake & Output 12/23 1600 12/23 0800 12/23 0000 Intake Total 300 100 Output Total 500 850 Balance -200 -750 Intake, Oral 300 100 Number 1 Bowel Movements Output, Urine 500 850 Physical Exam General Appearance: Alert, Oriented X3, Cooperative, No Acute Distress Skin: No Rashes HEENT: Atraumatic, PERRLA, EOMI, Mucous Membr. moist/pink Neck: No JVD Cardiovascular: Irregular, destant heart sound, 3/6 pansystolic murumr Lungs: clear-air entry over lung bilaterally but decrease air entry over lung base bilaterally. no additional sounds Abdomen: Normal Bowel Sounds, Soft, No Tenderness Neurological: Normal Speech Extremities: No Clubbing, No Cyanosis, No Edema, chronic venous stasis changes Current Medications: Current Medications Sig/Migue Start time Last Medication Dose Route Stop Time Status Admin Acetylcysteine 2 ML BID 12/20 1119 AC 12/23 INH 0801 Albuterol Sulfate 3 ML EVERY 4 HRS/AWAKE 12/16 1600 AC 12/23 INH 0801 Apixaban 5 MG BID 12/15 1156 AC 12/23 PO 0911 Aspirin Buffered 81 MG Q48 12/15 1200 AC 12/23 PO 0911 Dextrose/Water 500 ML Q13H 12/21 0945 DC 12/22 IV 12/22 Digoxin 0.125 MG 1700 12/18 1700 AC 12/22 PO 1609 Diltiazem HCl 240 MG DAILY 12/16 1000 AC 12/23 PO 0911 Furosemide 80 MG QAM 12/22 1430 AC 12/23 PO 0910 Omeprazole 40 MG DAILY AC 12/15 1158 AC 12/23 PO 0545 Polycarbophil 625 MG QPM 12/15 2200 AC 12/22 PO 2030 Potassium Chloride 20 MEQ DAILY 12/16 1000 AC 12/23 PO 0909 Prednisone 60 MG DAILY 12/19 1000 AC 12/23 PO 0911 Tiotropium [place] 1 PUF DAILY 12/16 1000 AC 12/23 INH 0916 Last 24 Hrs of Lab/Ash Results Last 24 Hrs of Labs/Mics: Laboratory Tests 12/23/17 0654: Anion Gap 7, Estimated GFR > 60, BUN/Creatinine Ratio 45.6 H Assessment/Plan Assessment: His symptom improved, continue to require BiPAP or high flow oxygen. We will try nasal cannula oxygen today given that he reports significant improvement since yesterday after coughing some yellow sputum overnight. He finished 7 days of antibiotic for pneumonia. Cxray yesterday revealed Opacity in the left upper lobe and at the right base may be consistent with evolving consolidation. Heartrate is controlled since we added digoxin currently on 0.125 mg digoxin daily. COPD seems to be controlled given no wheezing on exam, currently is on oral prednisone taper. modified barium swallow was recommended to start patient on thickened water. Bicarbonate improved today from 47 down to 42 Plan * For CAP, finished course of antibiotic, his symptom continued to improve, we will watch off antibiotic. * For aspiration, we'll repeat swallow eval prior to discharge. For now we will continue current diet order * COPD exacerbation, improved symptom hannah, but continued to require BiPAP and high flow oxygen. We will try to wean off BiPAP and high flow oxygen today, we will continue nebs/trc, steroid taper and BiPAP as needed. * For A. fib: continue Cardizem ER 240, digoxin 0.125, eliquis, and ASA * LEXIE: Resolved * For HFpEF, we will continue Lasix * Hypernatremia: Resolved * Full code * Modified diet * DVT prophylaxis with Apixaban 5 mg BID for Afib Problem List: 1. Atrial fibrillation 2. COPD exacerbation 3. SLEEP APNEA 4. Acute and chronic respiratory failure with hypoxia Pain Ratin Pain Location: na Pain Goal: Remain pain free Pain Plan: See A&P Tomorrow's Labs & Rationales: none labs are stable for the past few days
--- NOTE | 2017-12-23 13:34 | PN- Pulmonary ---
Subjective HPI/Critical Care Issues: pt seen and examined somewhat feeling better still with dyspnea Objective Current Medications: Current Medications Sig/Migue Start time Last Medication Dose Route Stop Time Status Admin Acetylcysteine 2 ML BID 12/20 1119 AC 12/23 INH 0801 Albuterol Sulfate 3 ML EVERY 4 HRS/AWAKE 12/16 1600 AC 12/23 INH 1151 Apixaban 5 MG BID 12/15 1156 AC 12/23 PO 0911 Aspirin Buffered 81 MG Q48 12/15 1200 AC 12/23 PO 0911 Dextrose/Water 500 ML Q13H 12/21 0945 DC 12/22 IV 12/23 2003 0244 Digoxin 0.125 MG 1700 12/18 1700 AC 12/22 PO 1609 Diltiazem HCl 240 MG DAILY 12/16 1000 AC 12/23 PO 0911 Furosemide 80 MG QAM 12/22 1430 AC 12/23 PO 0910 Omeprazole 40 MG DAILY AC 12/15 1158 AC 12/23 PO 0545 Patient Medication 1 ED ONE ONE 12/23 1245 DC 12/23 Teaching ED 12/23 1246 1242 Polycarbophil 625 MG QPM 12/15 2200 AC 12/22 PO 2030 Potassium Chloride 20 MEQ DAILY 12/16 1000 AC 12/23 PO 0909 Prednisone 60 MG DAILY 12/19 1000 AC 12/23 PO 0911 Tiotropium [place] 1 PUF DAILY 12/16 1000 AC 12/23 INH 0916 Vital Signs & I&O Last 24 Hrs of Vitals and I&O: Vital Signs Date Time Temp Pulse Resp B/P B/P Pulse O2 O2 Flow FiO2 Mean Ox Delivery Rate 12/23 1153 94 12/23 1139 Nasal 55% Cannula 12/23 1022 93 12/23 0819 93 Nasal 55% Cannula 12/23 0818 88 94 12/23 0800 93 Nasal 55% Cannula 12/23 0649 97.9 84 24 130/60 93 BIPAP 12/23 0048 78 98 12/23 0000 BIPAP 40% 12/22 2252 97.8 73 73 140/86 92 12/22 1900 88 98 12/22 1720 72 92 12/22 1622 93 BIPAP 40% 12/22 1621 74 93 12/22 1609 76 159/72 12/22 1600 BIPAP 40% 12/22 1417 98.4 78 22 137/72 91 BIPAP Intake & Output 12/23 1600 12/23 0800 03/22 0000 Intake Total 300 100 Output Total 100 500 850 Balance -100 -200 -750 Intake, Oral 300 100 Number 1 Bowel Movements Output, Urine 100 500 850 Exam Other Physical Findings: gen awake and alert, mild conversational dyspnea heent bipap cvs s1, s2, irregular lungs diminished bs bases given body habitus abd obese ext with chronic venous stasis Results Last 24 Hrs of Lab Results: Laboratory Tests 12/23/17 0654: Anion Gap 7, Estimated GFR > 60, BUN/Creatinine Ratio 45.6 H Impression/Plan Impression/Plan Impression/Plan: Impression 86 year old man * Dyspnea - likely acute exacerbation of COPD accompanied by a possible tracheobronchitis and also underlying acute on chronic chf exacerbation in setting of severe (AVR 2012) * deconditioning/obesity * ELIZ * pulmonary htn Plan -complete mucomyst -f/u cardiology, daily weights, diuresis -bipap, can try nasal cannula pendant with time -prednisone taper as ordered -monitor finger sticks -cont eliquis -course of abx - on Augmentin -rate control -TRC/Nebs -Incentive spirometry DVT prophylaxis at all times (on Eliquis)
[2017-12-23 13:49] VITALS: BP 134/61
[2017-12-23] MEDS ORDERED: LANOXIN125 MCG PO (18:46)
--- NOTE | 2017-12-23 18:49 | Patient Discharge Instructions ---
Discharge Instructions General Discharge Information You were seen/treated for: Shortness of breath most likely because of pneumonia and COPD exacerbationi Special Instructions: Please follow with PCP and lungs doctor within one week of discharge Diet Continue normal diet: Yes Recommended Diet: puree and nectar Activity Full Activity/No Limits: Yes Activity Self Limited: Yes Acute Coronary Syndrome Inclusion Criteria At DC or during hospital stay patient has or had the following: ACS DIAGNOSIS No Discharge Core Measures Meds if any: Prescribed or Continued at Discharge Meds if any: NOT Prescribed or Continued at Discharge Congestive Heart Failure Inclusion Criteria At DC or during hospital stay patient has or had the following: CHF DIAGNOSIS No Discharge Core Measures Meds if any: Prescribed or Continued at Discharge Meds if any: NOT Prescribed or Continued at Discharge Cerebrovascular accident Inclusion Criteria At DC or during hospital stay patient has or had the following: CVA/TIA Diagnosis No Discharge Core Measures Meds if any: Prescribed or Continued at Discharge Meds if any: NOT Prescribed or Continued at Discharge Venous thromboembolism Inclusion Criteria VTE Diagnosis No VTE Type NONE VTE Confirmed by (Test) NONE Discharge Core Measures - Per Current guidelines, there needs to be overlap - treatment for the first 5 days of Warfarin therapy. - If discharged on Warfarin prior to 5 days of - overlap therapy, the patient will need to be - assessed for post discharge needs including - *Post discharge parental anticoagulation - *Warfarin and/or parental anticoagulation education - *Follow up date to check INR post discharge At least 5 days overlap therapy as Inpatient No Meds if any: Prescribed or Continued at Discharge Note: Overlap Therapy is Warfarin and Anticoagulant Meds if any: NOT Prescribed or Continued at Discharge
[2017-12-23 22:51] VITALS: BP 128/96
[2017-12-24 05:56] VITALS: BP 135/88
[2017-12-24] MEDS ORDERED: PREDNISONE10 M2 PO (09:16)
--- NOTE | 2017-12-24 10:02 | PN- Housestaff ---
Tori COLES,Iswyil 12/24/17 1002: Subjective Follow-up For: -Acute hypoxic hypercarbic respiratory failure -Atrial fibrillation with rapid ventricular response -CAP Subjective: Afebrile on steroids, hemodynamically stable, saturating well on BiPAP level of the. He was able to tolerate 4 hours on nasal cannula yesterday without BiPAP or high flow oxygen, which improved from 1-2 hours the day before. He denies any current active complaints. No acute overnight event was reported. Review of Systems Constitutional: Reports: see HPI. Objective Last 24 Hrs of Vital Signs/I&O Vital Signs Date Time Temp Pulse Resp B/P B/P Pulse O2 O2 Flow FiO2 Mean Ox Delivery Rate 12/24 1156 97 Nasal 55% Cannula 12/24 1124 98.2 79 23 135/88 12/24 0753 79 95 12/24 0556 98.2 72 23 135/88 97 12/24 0040 85 95 12/24 0000 94 BIPAP 40% 12/23 2251 98.8 75 18 128/96 98 12/23 2221 87 91 12/23 2003 94 Nasal 55% Cannula 12/23 1804 73 134/61 12/23 1800 92 Nasal 55% Cannula 12/23 1608 92 BIPAP 40% 12/23 1600 73 92 12/23 1349 96.9 72 22 134/61 90 BIPAP 12/23 1245 86 92 Intake & Output 12/24 1600 12/24 0800 12/24 0000 Intake Total 300 100 Output Total 250 700 Balance 50 -600 Intake, Oral 300 100 Output, Urine 250 700 Physical Exam General Appearance: Alert, Oriented X3, Cooperative, No Acute Distress Skin: No Rashes HEENT: Atraumatic, PERRLA, EOMI, Mucous Membr. moist/pink Neck: No JVD Cardiovascular: irregular Lungs: Clear to Auscultation, Normal Air Movement Abdomen: Soft, No Tenderness Neurological: Normal Speech Extremities: No Clubbing, No Cyanosis, No Edema, chronic venous changes Current Medications: Current Medications Sig/Migue Start time Last Medication Dose Route Stop Time Status Admin Acetylcysteine 2 ML BID 12/20 1119 AC 12/24 INH 0759 Albuterol Sulfate 3 ML EVERY 4 HRS/AWAKE 12/16 1600 AC 12/24 INH 1155 Apixaban 5 MG BID 12/15 1156 AC 12/24 PO 0922 Aspirin Buffered 81 MG Q48 12/15 1200 AC 12/23 PO 0911 Digoxin 0.125 MG 1700 12/18 1700 AC 12/23 PO 1804 Diltiazem HCl 240 MG DAILY 12/16 1000 AC 12/24 PO 0922 Furosemide 80 MG QAM 12/22 1430 AC 12/24 PO 0921 Omeprazole 40 MG DAILY AC 12/15 1158 AC 12/24 PO 0624 Patient Medication 1 ED ONE ONE 12/23 1245 DC 12/23 Teaching ED 12/23 1246 1242 Polycarbophil 625 MG QPM 12/15 2200 AC 12/23 PO 2058 Potassium Chloride 20 MEQ DAILY 12/16 1000 AC 12/24 PO 0921 Prednisone 60 MG DAILY 12/19 1000 AC 12/24 PO 0921 Sodium Chloride 2 SPRAY Q4P PRN 12/23 1615 AC 12/23 FAWAD 1804 Tiotropium [place] 1 PUF DAILY 12/16 1000 AC 12/24 INH 0922 Assessment/Plan Assessment: The patient reports significant improvement of his symptoms, he was able to tolerate nasal oxygen for 4 hours yesterday. He continued to slowly improve. He is stable for discharge later today as long as he will have access to BiPAP and high flow oxygen. Plan * For CAP, finished course of antibiotic, his symptom continued to improve, we will watch off antibiotic. * For aspiration, Continue current diet order * COPD exacerbation, improved symptom hannah, but continued to require BiPAP and high flow oxygen. We will try to wean off BiPAP and high flow oxygen today, we will continue nebs/trc, steroid taper and BiPAP as needed. * For A. fib: continue Cardizem ER 240, digoxin 0.125, eliquis, and ASA * LEXIE: Resolved * For HFpEF, we will continue Lasix * Hypernatremia: Resolved * Full code * Modified diet * DVT prophylaxis with Apixaban 5 mg BID for Afib Problem List: 1. CHF EXACERBATION Pain Ratin Pain Location: NA Pain Goal: Remain pain free Pain Plan: See A&P Tomorrow's Labs & Rationales: none as he most likely DC later today Froylan COLES,Ozzie 12/24/17 1204: Attending MD Review Statement Attending Statement Attending MD Statement: examined this patient, discuss w/resident/PA/TRANSPORTATION INSPECTOR, agreed w/resident/PA/TRANSPORTATION INSPECTOR, reviewed EMR data (avail), discussed with nursing, discussed with case mgmt, amended to note Attending Assessment/Plan: Patient seen and examined. Resting comfortably this morning on BiPAP therapy. He was off BiPAP for up to 4 hours yesterday. Continues to report feeling well while on BiPAP therapy. He is afebrile. He is hemodynamically stable. He is excited that he was able to tolerate being off BiPAP for more prolonged period yesterday. Case discussed with the patient's pulmonary service. He is medically stable to be transferred to a long-term acute care facility for gradual weaning of BiPAP therapy. He has been accepted at the hospital for special care and he will continue his medical care there. Patient and are in agreement with this plan. Recommendations: -Patient is medically stable to be discharged to the hospital for special care today. -He will continue on bronchodilator therapy and oral steroid taper. -He will continue on his home dose of Lasix. -No further need for antibiotic therapy for now. -Following discharge from there, he will follow-up with his regenerator operator service as an outpatient.
[2017-12-24] MEDS ORDERED: METOPROLOL TART25 M1 PO (10:53)
--- NOTE | 2017-12-24 11:22 | PN- Cardiology ---
Subjective Subjective: Comfortable on high flow oxygen. Objective Vital Signs and I&Os Vital Signs Date Time Temp Pulse Resp B/P B/P Pulse O2 O2 Flow FiO2 Mean Ox Delivery Rate 12/24 0753 79 95 12/24 0556 98.2 72 23 135/88 97 12/24 0040 85 95 12/24 0000 94 BIPAP 40% 12/23 2251 98.8 75 18 128/96 98 12/23 2221 87 91 12/23 2003 94 Nasal 55% Cannula 12/23 1804 73 134/61 12/23 1800 92 Nasal 55% Cannula 12/23 1608 92 BIPAP 40% 12/23 1600 73 92 12/23 1349 96.9 72 22 134/61 90 BIPAP 12/23 1245 86 92 12/23 1153 94 12/23 1139 Nasal 55% Cannula Intake & Output 12/24 1600 12/24 0800 12/24 0000 12/23 1600 12/23 0800 12/23 0000 Intake Total 300 100 600 300 100 Output Total 043 042 1370 500 850 Balance 50 -600 -600 -200 -750 Intake, Oral 300 100 600 300 100 Number 1 Bowel Movements Output, Urine 316 049 0221 500 850 Physical Exam: General: no apparent distress. Alert. On high flow oxygen Eyes: No obvious scleral icterus. HEENT: No jugular venous distention or abnormal jugular venous pulsations. Cardiovascular: Normal intensity S1/S2. Irregular; 3/6 systolic murmur Respiratory: mildly decreased air entry Abdomen: Soft, nontender with no guarding or rebound tenderness. Musculoskeletal: Trace edema Skin: warm, stasis changes noted Neurologic: No gross focal deficits noted. Current Medications: Current Medications Sig/Migue Start time Last Medication Dose Route Stop Time Status Admin Acetylcysteine 2 ML BID 12/20 1119 AC 12/24 INH 0759 Albuterol Sulfate 3 ML EVERY 4 HRS/AWAKE 12/16 1600 AC 12/24 INH 0759 Apixaban 5 MG BID 12/15 1156 AC 12/24 PO 0922 Aspirin Buffered 81 MG Q48 12/15 1200 AC 12/23 PO 0911 Digoxin 0.125 MG 1700 12/18 1700 AC 12/23 PO 1804 Diltiazem HCl 240 MG DAILY 12/16 1000 AC 12/24 PO 0922 Furosemide 80 MG QAM 12/22 1430 AC 12/24 PO 0921 Omeprazole 40 MG DAILY AC 12/15 1158 AC 12/24 PO 0624 Patient Medication 1 ED ONE ONE 12/23 1245 DC 12/23 Teaching ED 12/23 1246 1242 Polycarbophil 625 MG QPM 12/15 2200 AC 12/23 PO 2058 Potassium Chloride 20 MEQ DAILY 12/16 1000 AC 12/24 PO 0921 Prednisone 60 MG DAILY 12/19 1000 AC 12/24 PO 0921 Sodium Chloride 2 SPRAY Q4P PRN 12/23 1615 AC 12/23 FAWAD 1804 Tiotropium [place] 1 PUF DAILY 12/16 1000 AC 12/24 INH 0922 Results Last 48 Hrs of Labs/Mics: Laboratory Tests 12/23/17 0654: Anion Gap 7, Estimated GFR > 60, BUN/Creatinine Ratio 45.6 H Recent Imaging Studies: Not currently on telemetry Assessment/Plan Assessment/Plan 1. Hypercarbic respiratory insufficiency 2. COPD on home oxygen 3. 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 Acute on chronic heart failure with preserved ejection fraction 6. Sleep apnea 7. Pulmonary HTN 8. Known history of venous insufficiency Currently comfortable on high flow nasal cannula oxygen. Continue oral anticoagulation. Continue on oral Lasix. Bobby Benavidez MD [facility] Continue telemetry? Not applicable
[2017-12-24 11:24] VITALS: BP 135/88
--- NOTE | 2017-12-24 12:20 | PN- Pulmonary ---
Subjective HPI/Critical Care Issues: pt seen and examined feels better awaiting dc Objective Current Medications: Current Medications Sig/Migue Start time Last Medication Dose Route Stop Time Status Admin Acetylcysteine 2 ML BID 12/20 1119 AC 12/24 INH 0759 Albuterol Sulfate 3 ML EVERY 4 HRS/AWAKE 12/16 1600 AC 12/24 INH 1155 Apixaban 5 MG BID 12/15 1156 AC 12/24 PO 0922 Aspirin Buffered 81 MG Q48 12/15 1200 AC 12/23 PO 0911 Digoxin 0.125 MG 1700 12/18 1700 AC 12/23 PO 1804 Diltiazem HCl 240 MG DAILY 12/16 1000 AC 12/24 PO 0922 Furosemide 80 MG QAM 12/22 1430 AC 12/24 PO 0921 Omeprazole 40 MG DAILY AC 12/15 1158 AC 12/24 PO 0624 Patient Medication 1 ED ONE ONE 12/23 1245 DC 12/23 Teaching ED 12/23 1246 1242 Polycarbophil 625 MG QPM 12/15 2200 AC 12/23 PO 2058 Potassium Chloride 20 MEQ DAILY 12/16 1000 AC 12/24 PO 0921 Prednisone 60 MG DAILY 12/19 1000 AC 12/24 PO 0921 Sodium Chloride 2 SPRAY Q4P PRN 12/23 1615 AC 12/23 FAWAD 1804 Tiotropium [place] 1 PUF DAILY 12/16 1000 AC 12/24 INH 0922 Vital Signs & I&O Last 24 Hrs of Vitals and I&O: Vital Signs Date Time Temp Pulse Resp B/P B/P Pulse O2 O2 Flow FiO2 Mean Ox Delivery Rate 12/24 1156 97 Nasal 55% Cannula 12/24 1124 98.2 79 23 135/88 12/24 0753 79 95 12/24 0556 98.2 72 23 135/88 97 12/24 0040 85 95 12/24 0000 94 BIPAP 40% 12/23 2251 98.8 75 18 128/96 98 12/23 2221 87 91 12/23 2002 94 Nasal 55% Cannula 12/23 1804 73 134/61 12/23 1800 92 Nasal 55% Cannula 12/23 1608 92 BIPAP 40% 12/23 1600 73 92 12/23 1349 96.9 72 22 134/61 90 BIPAP 12/23 1245 86 92 Intake & Output 12/24 1600 12/24 0800 12/24 0000 Intake Total 300 100 Output Total 250 700 Balance 50 -600 Intake, Oral 300 100 Output, Urine 250 700 Exam Other Physical Findings: gen awake and alert, mild conversational dyspnea heent bipap cvs s1, s2, irregular lungs diminished bs bases given body habitus abd obese ext with chronic venous stasis Impression/Plan Impression/Plan Impression/Plan: Impression 86 year old man * Dyspnea - likely acute exacerbation of COPD accompanied by a possible tracheobronchitis and also underlying acute on chronic chf exacerbation in setting of severe (AVR 2012) * deconditioning/obesity * ELIZ * pulmonary htn Plan -f/u cardiology, diuresis -bipap nocturnal and prn -prednisone taper as ordered -monitor finger sticks -cont eliquis -course of abx - on Augmentin -rate control -TRC/Nebs -Incentive spirometry DVT prophylaxis at all times (on Eliquis) DC planning
== END 2017-12-24 14:15 | DRG 193 ==
LOC: ERH 07:23 → ERHI 09:18 → 1NO 09:18 → ENRESERV 12:58 → ENTRNSPT 13:26 → EDTRNSPTSTS 13:33 → 1NO 13:50 → CMPTRNSPT 14:08 → 1NO 12-23 16:42
PROVIDERS: Emergency Medicine; Student in an Organized Health Care Education/Training Program
PROC: 5A09457 Assistance with Respiratory Ventilation, 24-96 Consecutive Hours, Continuous Positive Airway Pressure (ICD-10-PCS; principal; 2017-12-15)
DX: J18.9 Pneumonia, unspecified organism (principal); J96.21 Acute and chronic respiratory failure with hypoxia; I50.33 Acute on chronic diastolic (congestive) heart failure; E87.0 Hyperosmolality and hypernatremia; E87.2 Acidosis; E87.3 Alkalosis; I48.2 Chronic atrial fibrillation; I27.20 Pulmonary hypertension, unspecified; E66.01 Morbid (severe) obesity due to excess calories; J96.22 Acute and chronic respiratory failure with hypercapnia; J44.0 Chronic obstructive pulmonary disease with (acute) lower respiratory infection; J44.1 Chronic obstructive pulmonary disease with (acute) exacerbation; L97.929 Non-pressure chronic ulcer of unspecified part of left lower leg with unspecified severity; L97.919 Non-pressure chronic ulcer of unspecified part of right lower leg with unspecified severity; I11.0 Hypertensive heart disease with heart failure; Z99.81 Dependence on supplemental oxygen; Z68.39 Body mass index [BMI] 39.0-39.9, adult; Z79.01 Long term (current) use of anticoagulants; Z88.8 Allergy status to other drugs, medicaments and biological substances; G47.33 Obstructive sleep apnea (adult) (pediatric); M81.0 Age-related osteoporosis without current pathological fracture; I87.2 Venous insufficiency (chronic) (peripheral); I25.10 Atherosclerotic heart disease of native coronary artery without angina pectoris; Z95.3 Presence of xenogenic heart valve
CPT/HCPCS: 1NP; 36415; 36592; 71045; 74230; 82436; 87070; 87086; 93005; 93010; 97110-GO; 97161-GP; 97530-GO; J0456; J0696; J1940; J2920; J7042; J7060; J7608